=== PATIENT | male | born 1970 | race Caucasian/White ===

== ENCOUNTER 2024-06-01 22:56 | Inpatient (IN) ==
--- NOTE | 2024-06-01 23:32 | Emergency Department Note ---
Impression & Plan Depression, Anxiety, Alcohol intoxication, Alcohol abuse ED Provider Note ED Provider Note NAME: GASTON MENDEZ AGE:53 SEX: Male : 1970 ARRIVES VIA: Private vehicle INFORMANT: Patient ED PROVIDER(s): Criss Rivera DO CHIEF COMPLAINT: Mental health evaluation HPI: This is a 53-year-old male who arrives to Emergency Department with family due to concern for mental health evaluation. Patient admits to history of anxiety, depression, and PTSD. He admits to history of alcohol abuse and states he did drink a sixpack today. Patient states he does drink daily. He states he has tried to go to rehab twice, but still goes back to alcohol use. He states he does use marijuana occasionally, denies any other recreational drugs. He denies any other concern for any recent injury or illness. He denies any recent change in his medications. He states he is a diabetic but does not check his blood sugar. He denies SI/HI. PAST MEDICAL HISTORY:See Below PAST SURGICAL HISTORY:See Below FAMILY HISTORY:See Below SOCIAL HISTORY:See Below HOME MEDICATIONS:See Below ALLERGIES:See Below VITALS:See Below PHYSICAL EXAMINATION: GENERAL: alert, well appearing, well nourished, no distress, non-toxic, tearful EYE EXAM: normal conjunctiva, PERRL and EOM's grossly intact OROPHARYNX: no exudate, no erythema, lips, buccal mucosa, and tongue normal and mucous membranes are moist NECK: supple, no nuchal rigidity, no adenopathy, non-tender LUNGS: Clear to auscultation. Normal chest wall mechanics, no w/r/r HEART: no murmurs, S1 normal and S2 normal ABDOMEN: abdomen soft, non-tender, normo-active bowel sounds, no masses, no rebound or guarding. SKIN: no rashes, petechiae, orbruising UPPER EXTREMITIES: upper extremities are grossly normal. FROM, nml pulses b/l. LOWER EXTREMITIES: No pitting edema. FROM, nml pulses b/l. NEURO EXAM: Normal sensorium, cranial nerves II-XII grossly intact, normal speech, no facial droop,nogross weakness of arms, no gross weakness of legs. Gross sensation intact. No ataxia. Vital Signs: reviewed and remarkable Differential Diagnosis: mood disorder, suicidal ideation, anxiety, depression, substance abuse, toxidrome, infection, hypoglycemia, electrolyte abnormalities, ICH as well as others were considered. MEDICAL DECISION MAKING: This is a 53-year-old male presents emergency department with family bedside due to concern for increased anxiety, depression, PTSD symptoms. Patient admits to daily alcohol use. Labs and urine collected and sent per protocol, EKG performed and interpreted by me at bedside, patient monitored on telemetry due to concern for alcohol use and possible withdrawal. Patient noted to have significant alcohol intoxication. He was given a dose of his previously prescribed anxiety medication additionally. He rested and was medically cleared at 7 AM for case management evaluation. Patient signed out pending case management evaluation and recommendations. Patient denied SI or HI, no grounds at this time for involuntary inpatient mental health treatment. ER Treatment Provided: See below 0645: Patient signed out to Dr. Funes pending mental health evaluation. Diagnostics Interpreted By Me: -ECG: Normal sinus at 89, normal axis, normal intervals, no acute ST/T wave changes -Cardiac Monitoring: An order was placed for continuous cardiac monitoring. The monitor shows a rate of 88 with normal sinus rhythm. -Laboratory studies: As stated above and show below. Triage Nursing Note Reviewed Prior/Outside Records Reviewed Past Med/Surg History Problem List (Updated 06/02/24 @ 11:07 by Yang Reeves DO) PTSD (post-traumatic stress disorder) Alcohol withdrawal syndrome with perceptual disturbance Alcohol abuse (Acute) Alcohol intoxication (Acute) Anxiety (Acute) Depression (Acute) Encounter for pre-operative examination No significant past surgical history Chronic low back pain Chronic neck pain Medical History (Updated 06/02/24 @ 11:07 by Yang Reeves DO) Alcohol dependence, daily use 3-12 drinks daily Barretts esophagus Diabetes mellitus, type 2 NIDDM Anxiety Hypertension Depression Surgical History History of carpal tunnel surgery of right wrist History of cholecystectomy History of hernia surgery x2 in childhood History of colonoscopy History of esophagogastroduodenoscopy (EGD) History of tooth extraction partial upper denture Family History Other No family history of adverse response to anesthesia No pertinent family history in first degree relatives Social History Smoking Status: Never smoker Second Hand Exposure: No; Do You Dip or Chew Tobacco: No; Hx Alcohol Use: Yes Alcohol type: beer and hard liquor Hx Substance Use: Yes (smokes marijuana (advised on policy)) Preferred Language: [place] Communication Ability: Effective Screen Vent Binder Required: No Beliefs That Will Affect Care: None marital status: Single Current Living Situation: Alone Current Living Situation Comment: Roomate, considers moving in with Brother current occupational status: employed Feels Safe at Home: Yes Safety Concerns: Feels Safe At This Time Gender Identity: Male Assistive Devices: None Allergies Allergies Allergy/AdvReac Type Severity Reaction Status Date / Time bee venom protein (honey bee) Allergy Severe Anaphylaxis Verified 08/09/21 09:34 Home Meds Home Medications Medication Instructions Recorded Confirmed amitriptyline 10 mg tablet 10 mg PO QAM 12/01/18 06/02/24 citalopram 20 mg tablet 20 mg PO QAM 12/01/18 06/02/24 cyclobenzaprine 10 mg tablet 10 mg PO TID PRN Spasms 12/01/18 06/02/24 epinephrine 0.3 mg/0.3 mL 0.3 mg IM Q3H PRN Allergic Reaction 12/01/18 06/02/24 injection, auto-injector lisinopril 20 mg tablet 20 mg PO QAM 12/01/18 06/02/24 meloxicam 15 mg tablet 15 mg PO QAM 12/01/18 06/02/24 metformin 500 mg tablet 500 mg PO DAILYBD 12/01/18 06/02/24 omeprazole 40 mg capsule,delayed 40 mg PO QAM 12/01/18 06/02/24 release albuterol sulfate 90 mcg/actuation 90 mcg inhalation Q6 PRN Shortness 06/02/24 06/02/24 aerosol inhaler Of Breath atorvastatin 10 mg tablet 10 mg PO QAM 06/02/24 06/02/24 clonidine HCl 0.1 mg tablet 0.1 mg PO QAM 06/02/24 06/02/24 folic acid 1 mg tablet 1 mg PO QAM 06/02/24 06/02/24 Previous Rx's Medication Instructions Recorded tramadol 50 mg tablet (Ultram) 50 mg PO Q4H PRN pain #15 tabs 08/17/20 Results & Data (ED) Vital Signs Vital Signs - 24 hr 06/02/24 08:48 06/02/24 09:07 06/02/24 09:07 Temperature 36.5 C Temperature Source Oral Pulse Rate 87 Pulse Rate [Finger] 78 86 Pulse Rate from SpO2 Sensor Respiratory Rate 20 14 20 Respiratory Effort / Characteristics Non-Labored Spontaneous Respiratory Depth Normal Respiratory Pattern Regular Blood Pressure 143/95 H Blood Pressure [Right Arm] 158/88 H 143/95 H Blood Pressure Mean 108 Blood Pressure Mean [Right Arm] 111 111 Blood Pressure Position [Right Arm] Semi-fowlers Pulse Oximetry 97 97 98 Oxygen Delivery Method Room Air Room Air 06/02/24 10:00 06/02/24 10:06 06/02/24 10:06 Temperature Temperature Source Pulse Rate 75 87 Pulse Rate [Finger] Pulse Rate from SpO2 Sensor 84 Respiratory Rate 24 Respiratory Effort / Characteristics Respiratory Depth Respiratory Pattern Blood Pressure 143/93 H Blood Pressure [Right Arm] Blood Pressure Mean 112 Blood Pressure Mean [Right Arm] Blood Pressure Position [Right Arm] Pulse Oximetry 95 Oxygen Delivery Method Room Air 06/02/24 10:15 06/02/24 10:30 06/02/24 10:33 Temperature Temperature Source Pulse Rate 79 83 Pulse Rate [Finger] Pulse Rate from SpO2 Sensor 90 80 Respiratory Rate 17 22 Respiratory Effort / Characteristics Respiratory Depth Respiratory Pattern Blood Pressure 139/94 Blood Pressure [Right Arm] Blood Pressure Mean 108 Blood Pressure Mean [Right Arm] Blood Pressure Position [Right Arm] Pulse Oximetry 97 94 Oxygen Delivery Method Room Air Room Air Laboratory Data 06/01/24 23:48 06/01/24 23:48 Lab Results 06/01/24 06/02/24 Range/Units 23:48 04:15 WBC 4.59 L (4.8-10.8) K/ul RBC 4.75 (4.70-6.10) M/uL Hgb 15.0 (14.0-18.0) g/dl Hct 42.4 (42.0-52.0) % MCV 89.3 (80.0-100.0) fL MCH 31.6 (25.0-34.0) pg MCHC 35.4 (32.0-36.0) g/dL RDW Std Deviation 41.5 (36.4-46.3) fL RDW Coeff of [place] 12.8 (11.5-14.5) % Plt Count 230 (130-400) K/uL MPV 9.0 L (9.4-12.4) fL Immature Gran % (Auto) 0.2 % Neut % (Auto) 41.4 % Lymph % (Auto) 42.7 % [place] % (Auto) 12.2 % Eos % (Auto) 2.4 % Baso % (Auto) 1.1 % Neut # (Auto) 1.90 (1.40-6.50) K/uL Lymph # (Auto) 1.96 (1.20-3.40) K/uL [place] # (Auto) 0.56 (0.11-0.59) K/uL Eos # (Auto) 0.11 (0.00-0.50) K/uL Baso # (Auto) 0.05 (0.00-0.20) K/uL Immature Gran # (Auto) 0.01 (0.01-0.20) K/uL Sodium 141 (136-145) mmol/L Potassium 4.0 (3.5-5.1) mmol/L Chloride 104 (98-107) mmol/L Carbon Dioxide 25 (21-32) mmol/L Anion Gap 12 H (3-11) BUN 12 (6-23) mg/dl Creatinine 1.05 (0.6-1.4) mg/dl Est Cr Clr Drug Dosing 93.6 ml/min eGFR 84.35 BUN/Creatinine Ratio 11.4 (10-20) Glucose 193 H (70-99(Fasting)) mg/dl Calcium 9.6 (8.6-10.3) mg/dl Total Bilirubin 0.4 (0.2-1.0) mg/dl AST 51 H (13-39) U/L ALT 51 (7-52) U/L Alkaline Phosphatase 86 (34-104) U/L Total Protein 8.5 H (6.0-8.3) gm/dl Albumin 4.8 (3.4-5.0) gm/dl Globulin 3.7 (2.5-4.0) gm/dl Albumin/Globulin Ratio 1.3 (0.9-2) TSH 2.496 (0.300-4.500) uIu/ml Urine Color Yellow Urine Appearance Clear (Clear) Urine pH 5.5 (4.5-7.5) Ur Specific [place] 1.010 (1.000-1.030) Urine Protein Negative (Negative) Urine Glucose (UA) Trace H (Negative) Urine Ketones Negative (Negative) Urine Blood Trace-lysed H (Negative) Urine Nitrite Negative (Negative) Urine Bilirubin Negative (Negative) Urine Urobilinogen Negative (Negative) Ur Leukocyte Esterase Negative (Negative) Urine RBC 0-2 (0-2) /hpf Urine WBC 0-5 (0-5) /hpf Ur Epithelial Cells 3-5 H (0-2) /hpf Urine Bacteria None Seen (None Seen) Salicylates < 3.0 L (3.0-30) mg/dl Urine Opiates Screen Neg (Neg) Ur Methadone, Qual Neg (Neg) Urine Fentanyl Screen Neg (Neg) Acetaminophen < 3 L (10-30) ug/ml Urine Barbiturates Neg (Neg) Ur Phencyclidine (PCP) Neg (Neg) U Amphetamin/Meth Scrn Neg (Neg) MDMA (Ecstasy) Screen Neg (Neg) U Benzodiazepines Scrn Neg (Neg) Ur Cocaine Metabolite Neg (Neg) U Marijuana (THC) Screen Neg (Neg) Ethyl Alcohol mg/dL 317.8 H (<10.0) mg/dl Administered Medications Enoxaparin Sodium (Enoxaparin Inj 40 Mg/0.4 Ml Syr) 40 mg SQ Q24H [facility] Stop: 07/02/24 13:59 Last Admin: 06/02/24 15:43 Dose: 40 mg Documented By: CHUCHO Folic Acid (Folic Acid 1 Mg Tab) 1 mg PO QAM [facility] Stop: 07/02/24 12:59 Last Admin: 06/02/24 15:43 Dose: 1 mg Documented By: CHUCHO Gabapentin (Gabapentin 600 Mg Tab) 600 mg PO Q8H [facility] Stop: 06/03/24 23:01 Last Admin: 06/03/24 06:20 Dose: 600 mg Documented By: MARCIANO Insulin Aspart (Insulin Aspart Per Unit Charge) 0 units SC ACHS [facility] Stop: 07/02/24 12:44 Last Admin: 06/02/24 20:51 Dose: Not Given Documented By: Admin: 06/02/24 18:27 Dose: 5 units Documented By: CHUCHO Co-signed By: SANDRA Admin: 06/02/24 15:55 Dose: Not Given Documented By: CHUCHO Lorazepam (Lorazepam 1 Mg Tab) 1 mg PO UD PRN; Protocol PRN Reason: EtOH Withdrawal AWSS Score 6,7 Stop: 07/02/24 12:32 Last Admin: 06/02/24 18:31 Dose: 1 mg Documented By: Admin: 06/02/24 16:01 Dose: 1 mg Documented By: CHUCHO Thiamine HCl (Thiamine Hcl 100 Mg Tab) 100 mg PO QAM [facility] Stop: 07/02/24 12:59 Last Admin: 06/02/24 15:43 Dose: 100 mg Documented By: CHUCHO Discontinued Medications Chlordiazepoxide HCl (Chlordiazepoxide Hcl 25 Mg Cap) 25 mg PO NOW ONE Stop: 06/02/24 08:31 Last Admin: 06/02/24 08:36 Dose: 25 mg Documented By: URVASHI Gabapentin (Gabapentin 600 Mg Tab) 1,200 mg PO 1245 ONE Stop: 06/02/24 12:46 Last Admin: 06/02/24 15:44 Dose: 1,200 mg Documented By: CHUCHO Gabapentin (Gabapentin 600 Mg Tab) 600 mg PO Q6H [facility] Stop: 06/03/24 00:01 Last Admin: 06/03/24 00:51 Dose: 600 mg Documented By: Admin: 06/02/24 18:32 Dose: 600 mg Documented By: CHUCHO Hydroxyzine HCl (Hydroxyzine Hcl 25 Mg Tab) 50 mg PO NOW STA Stop: 06/01/24 23:52 Last Admin: 06/02/24 00:00 Dose: 50 mg Documented By: PATY Lorazepam (Lorazepam 1 Mg Tab) 2 mg PO NOW STA Stop: 06/02/24 05:00 Last Admin: 06/02/24 06:09 Dose: Not Given Documented By: PATY Lorazepam (Lorazepam 2 Mg/1 Ml Vial) 1 mg IV NOW STA Stop: 06/02/24 08:49 Last Admin: 06/02/24 09:08 Dose: Not Given Documented By: CLARIBEL Lorazepam (Lorazepam 1 Mg Tab) 1 mg SL NOW STA Stop: 06/02/24 09:05 Last Admin: 06/02/24 09:09 Dose: 1 mg Documented By: CLARIBEL Lorazepam (Lorazepam 2 Mg/1 Ml Vial) 1 mg IV NOW STA Stop: 06/02/24 10:27 Last Admin: 06/02/24 10:34 Dose: 1 mg Documented By: RONNIE Discharge Plan Visit Data Chief Complaint: Mental Health Evaluation Stated Complaint: DEPRESSION ED Provider: Doug Funes Discharge Problem: Depression, Anxiety, Alcohol intoxication, Alcohol abuse Patient Disposition: Admitted As Inpatient Discharge Instructions Interventions: ED Discharge Assessment Last Done: 06/02/24 12:34
[2024-06-02] MEDS: hydrOXYzine HCl 25 MG TAB PO STA
[2024-06-02 00:05] LABS: Basophils # (auto) 0.05 K/uL (0.00-0.20); Basophils % (auto) 1.1 %; Eosinophils # (auto) 0.11 K/uL (0.00-0.50); Eosinophils % (auto) 2.4 %; Hematocrit (blood only) 42.4 % (42.0-52.0); Immature Granulocytes # (auto) 0.01 K/uL (0.01-0.20); Immature Granulocytes % (auto) 0.2 %; Lymphocytes # (auto) 1.96 K/uL (1.20-3.40); Lymphocytes % (auto) 42.7 %; Mean Corpuscular Hemoglobin 31.6 pg (25.0-34.0); Mean Corpuscular Hgb Conc 35.4 g/dL (32.0-36.0); Mean Corpuscular Volume 89.3 fL (80.0-100.0); Monocytes # (auto) 0.56 K/uL (0.11-0.59); Monocytes % (auto) 12.2 %; Neutrophils % (auto) 41.4 %; Platelet Count 230 K/uL (130-400); RDW Coefficient of Variation 12.8 % (11.5-14.5); RDW Standard Deviation 41.5 fL (36.4-46.3); Red Blood Count 4.75 M/uL (4.70-6.10); White Blood Count 4.59 K/ul (4.8-10.8)
[2024-06-02 00:19] LABS: Albumin Globulin Ratio 1.3 (0.9-2); Albumin Level 4.8 gm/dl (3.4-5.0); BUN Creatinine Ratio 11.4 (10-20); Bilirubin,Total 0.4 mg/dl (0.2-1.0); Calcium 9.6 mg/dl (8.6-10.3); Creatinine Clr Calc Pharmacy 93.6 ml/min; Globulin 3.7 gm/dl (2.5-4.0); Total Protein 8.5 gm/dl (6.0-8.3)
[2024-06-02 00:33] LABS: Thyroid Stimulating Hormone 2.496 uIu/ml (0.300-4.500)
[2024-06-02 00:39] LABS: Acetaminophen < 3 ug/ml (10-30); Salicylate < 3.0 mg/dl (3.0-30)
[2024-06-02 04:34] LABS: Appearance Urine Clear (Clear); Bilirubin Urine Negative (Negative); Blood Urine Trace-lysed (Negative); Color Urine Yellow; Glucose Urine UA Trace (Negative); Ketones Urine Negative (Negative); Leukocyte Esterase Urine Negative (Negative); Nitrite Urine Negative (Negative); Protein Urine Negative (Negative); Urobilinogen Urine Negative (Negative); pH Urine 5.5 (4.5-7.5)
[2024-06-02 04:45] LABS: Bacteria Urine None Seen (None Seen); RBC Urine 0-2 /hpf (0-2); WBC Urine 0-5 /hpf (0-5)
[2024-06-02 05:00] LABS: Amphetamines+Metham, Urine Neg (Neg); Barbiturates, Urine Neg (Neg); Benzodiazepine, Urine Neg (Neg); Cocaine, Urine Neg (Neg); Fentanyl, Urine Neg (Neg); MDMA (Ecstacy), Urine Neg (Neg); Marijuana, Urine Neg (Neg); Methadone, Urine Neg (Neg); Opiate, Urine Neg (Neg); Phencyclidine, Urine Neg (Neg)
[2024-06-02] MEDS: LORazepam 1 MG TAB PO STA (06:09)
--- OUTSIDE RECORDS SUMMARY | 2024-06-02 06:22 | External Medical Summary | Summary of Care ---
Author Name Unknown Organization [facility] Address [address] [facility] [place] [address] Phone [phone] Care Team Providers Care Fit Model Name Role Phone Aixa Booth PA-C Primary Care Provider [phone] Reason for Visit * Reason Comments eRx-Medication Refill Encounter Details Date Type Department Care Team (Late st Contact Info) Description 05/03/2024 Refill [facility] [address] [place] [phone] Edgar Cardona MD [address] [facility] [place] [id number] Type 2 diabetes mellitus without complication, without long-term current use of insulin (HCC) Allergies Active Allergy Reactions Criticality Noted Date Comments Yellow Jacket Venom 07/31/2010 documented as of this encounter (statuses as of 05/03/2024) Medications OneTouch Verio In Vitro Strip (Glucose Blood)Indication s:Type 2 diabetes mellitus without complication, without long-term current use of insulin (HCC),Uncontroll ed type 2 diabetes mellitus with hyperglycemia (HCC) Check BS once daily E11.9 100 Strip 1 08/15/19 22 Active OneTouch UltraSoft LancetsIndicatio ns:Type 2 diabetes mellitus without complication, without long-term current use of insulin (HCC),Uncontroll ed type 2 diabetes mellitus with hyperglycemia (HCC) Check BS once daily E11.9 100 Each 1 08/15/19 22 Active metFORMIN HCl 500 MG Oral Tablet (Glucophage)Ghazal cations:Type 2 diabetes mellitus without complication, without long-term current use of insulin (HCC) Take 2 Tablets by mouth 2 times a day with morning and evening meals. 360 Tablet 3 03/06/19 24 Active Thiamine HCl 100 MG Oral Tablet (vitamin B-1)Indications: History of alcohol use disorder Take 1 Tablet by mouth in the morning. 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 40 Tablet 2 05/30/19 24 Active Naltrexone HCl 50 MG Oral Tablet (Revia)Indicatio ns:History of alcohol use disorder Take 1 Tablet by mouth in the morning. 90 Tablet 3 07/03/19 24 Active buPROPion HCl ER (XL) 300 MG Oral Tablet Extended Release 24 Hour (Wellbutrin XL)Indications:D epression with anxiety Take 1 Tablet by mouth in the morning. 90 Tablet 3 12/02/19 24 Active Citalopram Hydrobromide 40 MG Oral Tablet (CeleXA)Indicati ons:Depression with anxiety Take 1 Tablet by mouth in the morning. 90 Tablet 3 12/02/19 24 Active Folic Acid 1 MG Oral Tablet Take 1 Tablet by mouth in the morning. 90 Tablet 3 12/02/19 24 Active Omeprazole 40 MG Oral Capsule Delayed Release (PriLOSEC)Indica tions:Gastroesop hageal reflux disease without esophagitis Take 1 Capsule by mouth in the morning. 1 hour before the first meal of the day. 90 Capsule 3 12/02/19 24 Active Atorvastatin Calcium 10 MG Oral Tablet (Lipitor)Indicat ions:Type 2 diabetes mellitus without complication, without long-term current use of insulin (HCC) Take 1 Tablet by mouth in the morning. 90 Tablet 3 12/02/19 24 Active Baclofen 10 MG Oral Tablet (Lioresal)Indica tions:Lumbar radiculopathy Take 1 Tablet by mouth in the morning and 1 Tablet at noon and 1 Tablet before bedtime. 90 Tablet 5 12/02/19 24 Active Additional Information Patient taking differently:10 mg Oral TID(AM/NOON/HS),Takes PRN, Reported on 12/19/2023 Gabapentin 800 MG Oral Tablet (Neurontin)Indic ations:Lumbar radiculopathy,Un complicated alcohol dependence (HCC) Take 1 Tablet by mouth in the morning and 1 Tablet at noon and 1 Tablet before bedtime. 270 Tablet 3 12/02/19 24 Active Additional Information Patient taking differently:800 mg Oral TID(AM/NOON/HS),Taking PRN, Reported on 12/19/2023 Metoprolol Tartrate 25 MG Oral Tablet (Lopressor)Indic ations:HTN, goal below 130/80 Take 0.5 Tablets by mouth in the morning and 0.5 Tablets before bedtime. 90 Tablet 3 12/02/19 24 Active Famotidine 20 MG Oral Tablet (Pepcid)Indicati ons: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,Gastro esophageal reflux disease without esophagitis Take 1 Tablet by mouth at bedtime as needed for Heartburn. 90 Tablet 3 03/23/19 25 Active Albuterol Sulfate HFA 108 (90 Base) MCG/ACT Inhalation Aerosol SolutionIndicati ons:Acute bronchospasm INHALE 2 PUFFS BY MOUTH EVERY 6 HOURS NEEDED FOR SHORTNESS OF BREATH OR WHEEZING. 18 g 04/19/19 25 Active glipiZIDE 5 MG Oral Tablet (Glucotrol)Indic ations:Type 2 diabetes mellitus without complication, without long-term current use of insulin (HCC) TAKE 1 TABLET BY MOUTH EVERY DAY IN THE MORNING 90 Tablet 3 05/04/19 25 Active glipiZIDE 5 MG Oral Tablet (Glucotrol)Indic ations:Type 2 diabetes mellitus without complication, without long-term current use of insulin (HCC) Take 1 Tablet by mouth in the morning. 90 Tablet 3 03/06/19 24 2024 Discontinued documented as of this encounter (statuses as of 05/03/2024) Active Problems Problem Noted Date Diagnosed Date TYRA (acute kidney injury) 12/19/2023 Chest pain 12/19/2023 Alcohol withdrawal syndrome with complication Uncomplicated alcohol dependence 10/19/2021 Tremulousness 2019 Alcohol abuse 2019 Type 2 diabetes mellitus without complication Psychophysiological insomnia 01/07/2019 HTN, goal below 130/80 06/09/2018 Allergy to yellow jackets 04/30/2016 Overview (10/02/2017): ANAPHYLAXIS Hernandez's esophagus 03/23/2014 Lumbar radiculopathy 05/27/2013 Overview (05/27/2013): LE and UE EMG 2006- acute denervation in L4 root supplied muscles. Herniated cervical disc 05/27/2013 Overview (10/02/2017): X 3 Lumbar disc herniation 05/27/2013 Overview (10/02/2017): X 3 CTS (carpal tunnel syndrome) 05/27/2013 Overview (05/27/2013): EMG 2006 Esophageal reflux 01/04/2011 Depression with anxiety 01/04/2011 documented as of this encounter (statuses as of 05/03/2024) Resolved Problems Problem Noted Date Diagnosed Date Resolved Date Food insecurity 06/25/2022 04/01/2024 Overview: Per [facility] Protocol Uncontrolled type 2 diabetes mellitus with hyperglycemia 05/25/2022 03/06/2023 Accidental caffeine overdose 2019 08/14/2021 Moderate episode of recurren t major depressive disorder 10/08/2019 05/25/2022 Alcohol-induced mood disorder 10/08/2019 10/19/2021 Hemochromatosis 11/04/2018 01/07/2019 Prediabetes 11/25/2017 01/23/2019 Overview: Per Prediabetes protocol #1 MEDICATION USE AGREEMENT 11/30/2013 IFG (impaired fasting glucose) 07/24/2013 10/02/2017 Overview (07/24/2013): FBG 6/14 = 113 Backache 05/09/2011 10/02/2017 Toxic effect of venom 07/31/20102017 Overview (11/22/2015): ICD-10 update of inactive term documented as of this encounter (statuses as of 05/03/2024) Immunizations Name Administration Dates Next Due Pneumococcal Conjugate Vacci ne, 20-valent ([id number]) 05/28/2022 Seasonal Influenza Vac., MDV , IM, 0.5 mL (Fluzone) 11/30/2013,12/24/2012,12/25/2011(Deferr ed: Patient Refused) Seasonal Influenza, PF, 6 M & above, IM , (FluLaval or Fluzone) 12/16/2022(Deferred: Patient Refused) TDAP (age 10 and older)(Boostrix) 06/18/2022 TDAP, Age 7 and older, IM (Adacel) 12/25/2011(De ferred: Patient Refused) documented as of this encounter Social History Tobacco Use Types Packs/Day Years Used Date Smoking Tobacco: Never Smokeless Tobacco: Former Alcohol Use Standard Drinks/Week Comments Not Currently 0 (1 standard drink = 0.6 oz pure alcohol) 6-8 cans beer per day Not in a few months PHQ-2 Answer Date Recorded PHQ Adult Total Score 11 03/23/2024 Hunger Vital Sign Answer Date Recorded Within the past 12 months, y ou worried that your food would run out before you got the money to buy more. Never true 03/23/19 25 Within the past 12 months, t he food you bought just didn't last and you didn't have money to get more. Never true 03/23/2024 Childcare Answer Date Recorded Do you feel overwhelmed with taking care of a child, family member or friend? No 03/23/2024 Does your family need help f inding childcare? (Household - for ages 0-17 years) Not on file 03/23/2024 Clothing Answer Date Recorded Have you been unable to get clothing when it was really needed? No 03/23/2024 Is your family able to get c lothes or diapers when needed? (Household - for ages 0-17 years) Not on file 03/23/2024 Personal Safety Answer Date Recorded Do you feel unsafe or have concerns for your saf ety? No 03/23/2024 Do you have concerns for you r family's safety? (Household - for ages 0-17 years) Not on file 03/23/2024 Utilities Answer Date Recorded Do you have trouble paying y our heating, water, or electric bill? No 03/23/2024 Is your family able to pay t he heat, water, or electric bill? (Household - for ages 0-17 years) Not on file 03/23/2024 Does your family have access to good internet? (Household - for ages 0-17 years) Not on file 03/23/2024 Employment Status Answer Date Recorded Are you unemployed or without regular income? No 03/23/2024 Does the household have a re gular source of income? (Household - for ages 0-17 years) Not on file 03/23/2024 Social Connections Answer Date Recorded How often do you feel lonely or isolated from th ose around you? Never 03/23/2024 Financial Resource Strain Answer Date R ecorded Do you have any trouble payi ng for your medications, or do you think you might in the future? No 03/23/2024 Does your family have troubl e paying for medicine? (Household - for ages 0-17 years) Not on file 03/23/2024 Transportation Needs Answer Date Record ed Do you have trouble getting a ride to medical visits or work? (Adult - for ages 18 years and over) Not on file 03/23/2024 Does your family have a hard time getting a ride to doctors visits? (Household - for ages 0-17 years) Not on file 03/23/2024 Has lack of transportation k ept you from medical appointments, meetings, work, or from getting things needed for daily living? Check all that apply. No 03/23/2024 Do you (or your family) have trouble finding or paying for a ride (transportation)? (Household - for ages 0-17 years) Not on file 03/23/2024 Housing Stability Answer Date Recorded Do you currently live in a s helter or have no steady place to sleep at night? No 03/23/2024 Do you think you are at risk of becoming homeless? (Adult - for ages 18 years and over) Not on file 03/23/2024 Does your family worry about paying for your home or becoming homeless? (Household - for ages 0-17 years) Not on file 0 03/23/2024 Are you homeless or worried that you might be in the future? No 03/23/2024 Are you (or your family) hari eless or worried that you might be in the future? (Household - for ages 0-17 years) Not on file Food Insecurity Answer Date Recorded Do you need food for this week? No 03/23/2024 Are you able to get enough f ood for your family? (Household - for ages 0-17 years) Not on file 03/23/2024 Does your family need food t his week? (Household - for ages 0-17 years) Not on file 03/23/2024 Do you always have enough fo od for your family? (Household - for ages 0-17 years) Not on file 03/23/2024 Food Insecurity Answer Date Recorded Within the past 12 months, y ou worried that your food would run out before you got the money to buy more. Never true 03/23/19 25 Within the past 12 months, t he food you bought just didn't last and you didn't have money to get more. Never true 03/23/2024 Do you need food for this week? 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 Answer Date of Assessment Author No 12/19/2023 6:41 PM Josr Austin RN * Are you blind or do you have serious difficulty seeing, even when wearing glasses? Answer Date of Assessment Author No 12/19/2023 6:41 PM EDT Josr Beyer RN * Do you have serious difficulty walking or climbing stairs? (5 years old or older) Answer Date of Assessment Author No 12/19/2023 6:41 PM Josr Austin RN * Do you have difficulty dressing or bathing? (5 years old or older) Answer Date of Assessment Author No 12/19/2023 6:41 PM Josr Austin RN * Because of a physical, mental, or emotional condition, do you have difficulty doing errands alone such as visiting a doctor’s office or shopping? (15 years old or older) Answer Date of Assessment Author No 12/19/2023 6:41 PM EDT Josr Beyer RN documented as of this encounter Mental Status * Because of a physical, mental, or emotional condition, do you have serious difficulty concentrating, remembering, or making decisions? (5 years old or older) Answer Entry Date Author No 12/19/2023 6:41 PM EDT Josr Beyer RN documented in this encounter Miscellaneous Notes * Telephone Encounter - Brooke Williamson [facility] - 05/03/2024 11:28 AM EDTSigned Prescriptions: Disp Refills glipiZIDE 5 MG Oral Tablet (Glucotrol) 90 Tab*3 Sig: TAKE 1 TABLET BY MOUTH EVERY DAY IN THE MORNINGAuthorizing Provider: AIXA BOOTH User: BROOKE WILLIAMSON documented in this encounter Plan of Treatment Upcoming Encounters Date Type Department Care Team (Late st Contact Info) Description 06/01/2024 10:20 AM EDT Office Visit [facility] [address] [place] [phone] Edgar Cardona MD [address] [place] [phone] 09/15/2024 8:30 AM EDT Hospital Encounter ENDO GECL, Endoscopy [address] [facility] [address] [facility] [place] [phone] Manny Coker MD [address] [place] [phone] 09/15/2024 8:30 AM EDT - 09/15/2024 9:30 AM EDT Surgery ENDO GECL, Endoscopy [address] [place] [phone] Manny Coker MD [address] [place] [phone] COLONOSCOPY FLEXIBLE PROXIMAL DIAGNOSTIC Scheduled Procedures Name Priority Associated Diagnoses Date/Ti me COLONOSCOPY FLEXIBLE PROXIMA L DIAGNOSTIC 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, colon Hernandez esophagus 09/15/2024 8:30 AM EDT ESOPHAGOGASTRODUODENOSCOPY ( EGD), FLEXIBLE, TRANSORAL, DIAGNOSTIC 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, colon Hernandez esophagus 09/15/2024 8:30 AM EDT Health Maintenance Due Date Last Done Comments Hepatitis B Vaccine (1 of 3 - 19+ 3-dose series) 1988 Cologuard 2014 Fecal Occult Blood Test 2014 Sigmoidoscopy 2014 Hernandez's Esophagus Surveilance 03/23/2017 03/23/2014, 03/23/2014 Colonoscopy 11/05/2018 11/05/2013, 11/05/2013 Colorectal Cancer Screening 11/05/2018 Zoster Vaccines (1 of 2) 11/01/2019 COVID-19 Vaccine ( season) 2023 Influenza Vaccine (FLU shot) (#1) 2023 11/30/2013, 12/24/2012 Albumin/Creatinine Ratio 03/06/2024 03/06/2023 HbA1c 09/20/2024 03/23/2024, 11/20, 12/15/2022, Additional history exists Diabetic Eye Exam 12/01/2024 12/02/2023, , 10/08/2019 B-12 03/23/2025 03/23/2024, 06/18, 07/01/2020, Additional history exists Depression Monitoring 03/23/2025 03/23/2024 Diabetic Foot Exam 03/23/2025 03/23/2024, 0 03/06/2023, 08/14/2021, Additional history exists GFR 03/23/2025 03/23/2024, 11/0 02/2023, 12/19/2023, Additional history exists Lipid Panel 03/23/2029 03/23/2024, 11/20, 07/01/2020, Additional history exists DTap/Tdap Vaccines (2 - Td or Tdap) 06/18/2032 06/18/2022 RETIRED - COLONOSCOPY-EVERY 5 YRS AGES 18-100 Discontinued 11/05/2013, 11/05/2013 Pneumococcal Vaccine: 50+ Years Completed 05/28/2022 HPV (Gardasil) Vaccine Aged Out No lo nger eligible based on patient's age to complete this topic MENINGOCOCCAL (MENACTRA/MENVEO) Aged Out No longer eligible based on patient's age to complete this topic Meningitis B Vaccine (Bexsero/Trumemba) Aged Out No longer eligible based on patient's age to complete this topic documented as of this encounter Medical Devices Implanted Type Area Physical Science Aide Device Identifier Shelf Expiration Date Model / Serial / Lot Danyell Littlejohni 5 Dg, [id number] Implanted:Qty: 1 on 02/15/2022 [place] [facility] [place]: Spine Lumbar [employer] 10/25/2025 [id number] / / [id number] Screw 7x55mm Implanted:Qty: 2 on 02/15/2022 by Ba [place] [facility] [place]w N/A: Spine Lumbar [employer] [id number] / / Vivigen Mis Delivery System Pre-Filled Cannula With Cellular Bone Matrix (Processed By [email or web address], Exclusively Distributed By [employer]) Implanted:Qty: 1 on 02/15/2022 by Ba Napoles [place] [facility] [place]/A: Spine Lumbar LIF[employer]ET 01/05/2023 BL-0-001 / [id number] / [id number] Vivigen Mis Delivery System Pre-Filled Cannula With Cellular Bone Matrix (Processed By [email or web address], Exclusively Distributed By [employer] ([employer])) Implanted:Qty: 1 on 02/15/2022 by Ba Napoles [place] [facility] [place] N/A: Spine Lumbar LIFENET 01/05/2023- / [id number] / [id number] Concorde Proti 5 Dg Implanted:Qty: 1 on 02/15/2022 by Ba Napoles [place] [facility] [place] N/A: Spine Lumbar [employer] 06/03/2024 [id number] / / [id number] Screw [id number] Thr Maxtrix - [id number] Implanted:Qty: 2 on 02/15/2022 by Ba Napoles [place] [facility] [place] N/A: Spine Lumbar SYNTHES : DEPUY [id number] / / Screw Matrx 7.0x50mm - [id number] Implanted:Qty: 2 on 02/15/2022 by Ba Napoles [place] [facility] [place] N/A: Spine Lumbar JNJ : [employer] [id number] / / Cap Locking W/O Saddle Matrix - [id number] Implanted:Qty: 6 on 02/15/2022 by Ba Napoles MD [place] [facility] [place] N/A: Spine Lumbar SYNTHES : DEPUY [id number] / / Head Poly Top Load Matrix - [id number] Implanted:Qty: 6 on 02/15/2022 by Ba Napoles MD [place] [facility] [place] N/A: Spine Lumbar SYNTHES : DEPUY 632.001 / / Pre Lordosed Anastacio W Line 75mm - [id number] Implanted:Qty: 2 on 02/15/2022 by Ba Napoles MD [place] [facility] [place] N/A: Spine Lumbar JNJ : DE[employer]INE [id number] / / documented as of this encounter Visit Diagnoses Diagnosis Type 2 diabetes mellitus without complication, without long-term current use of insulin (HCC) 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, colon Hernandez esophagus Hernandez's esophagus documented in this encounter Advance Directives * Full Code (Latest Code Status on File) Date Activated Date Inactivated Comments 12/19/2023 6:02 PM 12/20/2023 5:57 PM This order reflects the patients wishes and were consensually agreed upon. Question Answer Comments Discussion of Advance Directives occurred with: Patient * Full Code Date Activated Date Inactivated Comments 12/14/2022 6:17 AM 12/16/2022 3:50 PM This order reflects the patients wishes and were consensually agreed upon. Question Answer Comments Discussion of Advance Directives occurred with: Patient * Full Code Date Activated Date Inactivated Comments 04/27/2022 6:16 PM 04/30/2022 2:46 PM This order r eflects the patients wishes and were consensually agreed upon. Question Answer Comments Discussion of Advance Directives occurred with: Patient * Full Code Date Activated Date Inactivated Comments 02/15/2022 8:51 AM 02/18/2022 4:16 PM Question Answer Comments Discussion of Advance Direct micheal occurred with: Not Discussed due to patient's condition * Full Code Date Activated Date Inactivated Comments 02/15/2022 6:12 AM 02/15/2022 8:51 AM This order reflects the patients wishes and were consensually agreed upon. Question Answer Comments Discussion of Advance Direct micheal occurred with: Not Discussed due to patient's condition Healthcare Agents on File Name Relationship Healthcare Agent Relationship Communication Douglas Russo Sr. Father Emergency Contact Care Teams Fit Model Relationship Specialty Start Date End Date Aixa Booth PA-C [address] [place] [id number] PCP - General Physician Psychiatry Instructor 12/10/23 documented as of this encounter
--- OUTSIDE RECORDS SUMMARY | 2024-06-02 06:22 | External Medical Summary | Summary of Care ---
Author Name Unknown Organization [facility] Address [address] 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 Name Role Phone Aixa Booth PA-C Primary Care Provider [phone] Reason for Visit * Reason Onset Date Comments Advice 02/28/2024 Encounter Details Date Type Department Care Team (Late st Contact Info) Description 02/28/2024 Telephone [facility] [place] [address] [facility] [place] [phone] Aixa Booth PA-C [address] [facility] [place] [address] Advice Allergies Active Allergy Reactions Criticality Noted Date Comments Yellow Jacket Venom 07/31/2010 documented as of this encounter (statuses as of 05/30/2024) Medications OneTouch Verio In Vitro Strip (Glucose Blood)Indications :Type 2 diabetes mellitus without complication, without long-term current use of insulin (HCC),Uncontrolle d type 2 diabetes mellitus with hyperglycemia (HCC) Check BS once daily E11.9 100 Strip 1 2 Active OneTouch UltraSoft LancetsIndication s:Type 2 diabetes mellitus without complication, without long-term current use of insulin (HCC),Uncontrolle d type 2 diabetes mellitus with hyperglycemia (HCC) Check BS once daily E11.9 100 Each 1 2 Active metFORMIN HCl 500 MG Oral Tablet (Glucophage)Indic ations:Type 2 diabetes mellitus without complication, without long-term current use of insulin (HCC) Take 2 Tablets by mouth 2 times a day with morning and evening meals. 360 Tablet 3 4 Active Thiamine HCl 100 MG Oral Tablet (vitamin B-1)Indications:H istory of alcohol use disorder Take 1 Tablet by mouth in the morning. 90 Tablet 3 4 Active hydrOXYzine HCl 50 MG Oral TabletIndications :OSMAN (generalized anxiety disorder),Current severe episode of major depressive 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, unspecified whether recurrent (HCC) Take 1 Tablet by mouth every 6 hours as needed for Anxiety. 40 Tablet 2 4 Active Naltrexone HCl 50 MG Oral Tablet (Revia)Indication s:History of alcohol use disorder Take 1 Tablet by mouth in the morning. 90 Tablet 3 4 Active buPROPion HCl ER (XL) 300 MG Oral Tablet Extended Release 24 Hour (Wellbutrin XL)Indications:De pression with anxiety Take 1 Tablet by mouth in the morning. 90 Tablet 3 4 Active Citalopram Hydrobromide 40 MG Oral Tablet (CeleXA)Indicatio ns:Depression with anxiety Take 1 Tablet by mouth in the morning. 90 Tablet 3 4 Active Folic Acid 1 MG Oral Tablet Take 1 Tablet by mouth in the morning. 90 Tablet 3 4 Active Omeprazole 40 MG Oral Capsule Delayed Release (PriLOSEC)Indicat ions:Gastroesopha geal reflux disease without esophagitis Take 1 Capsule by mouth in the morning. 1 hour before the first meal of the day. 90 Capsule 3 4 Active Atorvastatin Calcium 10 MG Oral Tablet (Lipitor)Indicati ons:Type 2 diabetes mellitus without complication, without long-term current use of insulin (HCC) Take 1 Tablet by mouth in the morning. 90 Tablet 3 4 Active Baclofen 10 MG Oral Tablet (Lioresal)Indicat ions:Lumbar radiculopathy Take 1 Tablet by mouth in the morning and 1 Tablet at noon and 1 Tablet before bedtime. 90 Tablet 5 4 Active Additional Information Patient taking differently:10 mg Oral TID(AM/NOON/HS),Takes PRN, Reported on 12/19/2023 Gabapentin 800 MG Oral Tablet (Neurontin)Indica tions:Lumbar radiculopathy,Unc omplicated alcohol dependence (HCC) Take 1 Tablet by mouth in the morning and 1 Tablet at noon and 1 Tablet before bedtime. 270 Tablet 3 4 Active Additional Information Patient taking differently:800 mg Oral TID(AM/NOON/HS),Taking PRN, Reported on 12/19/2023 Metoprolol Tartrate 25 MG Oral Tablet (Lopressor)Indica tions:HTN, goal below 130/80 Take 0.5 Tablets by mouth in the morning and 0.5 Tablets before bedtime. 90 Tablet 3 4 Active documented as of this encounter (statuses as of 05/30/2024) Active Problems Problem Noted Date Diagnosed Date [...] as of this encounter (statuses as of 05/30/2024) Resolved Problems Problem Noted Date Diagnosed Date [...] as of this encounter (statuses as of 05/30/2024) Immunizations Name Administration Dates Next Due Pneumococcal Conjugate Vacci ne, 20-valent ([id number]) 05/28/2022 Seasonal Influenza Vac., MDV , IM, [...] 03/23/2024 Does the household have a re lar source of income? (Household - for ages [...] 6:41 PM EDT Josr Beyer RN * Are you blind or do you have serious difficulty seeing, even when wearing glasses? Answer Date of Assessment Author No 12/19/2023 6:41 PM EDT Josr Beyer RN * Do you have serious difficulty walking or climbing stairs? (5 years old or older) Answer Date of Assessment Author No 12/19/2023 6:41 PM EDT Josr Beyer RN * Do you have difficulty dressing or bathing? (5 years old or older) Answer Date of Assessment Author No 12/19/2023 6:41 PM EDT Josr Beyer RN * Because of a physical, mental, [...] encounter Miscellaneous Notes * Telephone Encounter - Sharon Smith MED ASSIST - 02/28/2024 3:40 PM EST When and where was he in the ER? * Telephone Encounter - Yulia Meadows OSA - 02/28/2024 12:06 PM EST Pt stated that he went to the ER and they changed his medication but he does not know which meds were changed. Pls call pt back. documented in this encounter Plan of Treatment Upcoming Encounters Date Type Department Care Team (Late st Contact Info) Description 06/01/2024 10:20 AM EDT Office Visit [facility] [address] [facility] [place] [phone] Edgar Cardona MD [address] [facility] [place] [address] 09/15/2024 8:30 AM EDT Hospital Encounter [facility] [address] [phone] Manny Coker MD [address] [place] [address] 09/15/2024 8:30 AM EDT - 09/15/2024 9:30 AM EDT Surgery [facility] Endoscopy [address] [phone] Manny Coker MD [address] [place] [address] COLONOSCOPY FLEXIBLE PROXIMAL DIAGNOSTIC Scheduled Procedures Name [...] Vaccines (1 of 2) 11/01/2019 COVID-19 Vaccine (1 - season) 2023 Albumin/Creatinine Ratio 03/06/2024 03/06/2023 HbA1c 09/20/2024 03/23/2024, 11/20, 12/15/2022, Additional history exists Influenza Vaccine (FLU shot) (Season Ended) 2024 11/30/2013, 12/24/2012 Diabetic Eye Exam 12/01/2024 12/02/2023, , 10/08/2019 [...] this encounter Medical Devices Implanted Type Area Auto Refinisher Device Identifier Shelf Expiration Date Model / Serial / Lot Danyell Littlejohni 5 Dg, [id number] Implanted:Qty: 1 on 02/15/2022 [place] [facility] [place]A: Spine Lumbar [employer] 10/25/2025 [id number] / / [id number] Screw 7x55mm Implanted:Qty: 2 on 02/15/2022 by Ba Napoles [place] [facility] [place]w N/A: Spine Lumbar [employer] 5 / / Vivigen Mis Delivery System Pre-Filled Cannula With Cellular Bone Matrix (Processed By [employer], Exclusively Distributed By [employer]) Implanted:Qty: 1 on 02/15/2022 by Ba Napoles [place] [facility] [place]/A: Spine Lumbar [employer] 01/05/2023 - / [id number] / [id number] Vivigen Mis Delivery System Pre-Filled Cannula With Cellular Bone Matrix (Processed By [employer], Exclusively Distributed By [employer]) Implanted:Qty: 1 on 02/15/2022 by Ba Napoles [place] [facility] [place]/A: Spine Lumbar [facility] 01/05/2023 - / [id number] / [id number] Concorde [employer] 5 Dg Implanted:Qty: 1 on 02/15/2022 by Ba Napoles [place] [facility] [place]/A: Spine Lumbar [employer] 06/03/2024 [id number] / / [id number] Screw 7.5xee57ht Thr Maxtrix - [id number] Implanted:Qty: 2 on 02/15/2022 by Ba Napoles MD [place] [facility] [place]/A: Spine Lumbar SYNTHES : DEPUY / / Screw Matrx 7.0x50mm - [id number] Implanted:Qty: 2 on 02/15/2022 by Ba Napoles [place] [facility] [place]A: Spine Lumbar JNJ : [employer] / / Cap Locking W/O Saddle Matrix - [id number] Implanted:Qty: 6 on 02/15/2022 by Ba Napoles MD [place] [facility] [place]A: Spine Lumbar SYNTHES : DEPUY 632.099 / / Head Poly Top Load Matrix - [id number] Implanted:Qty: 6 on 02/15/2022 by Ba Napoles MD [place] [facility] [place]A: Spine Lumbar SYNTHES : DEPUY 632.001 / / Pre Lordosed Anasatcio W Line 75mm - [id number] Implanted:Qty: 2 on 02/15/2022 by Ba Napoles MD [place] [facility] [place]A: Spine Lumbar JNJ : [employer] [id number] / / documented as of this encounter Advance Directives * Full Code [...] Russo Sr. 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
--- OUTSIDE RECORDS SUMMARY | 2024-06-02 06:23 | External Medical Summary | Summary of Care ---
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 [facility] What is the reason for the patient to be seen? Heartburn * Evaluate & Treat - Unlimited Visits (Within 10 days (routine)) - Pending Review Specialty Diagnoses / Procedures Referred By Anika redman Referred To Contact Pharmacist / Pharmacy Diagnoses Lumbar radiculopathy Herniated cervical disc Cervical radiculopathy Chronic pain syndrome Aixa Booth PA-C [address] [address] Phone: tel: fax: Referral ID Status Reason Start Date Expiration Date Visits Requested Visits Authorized [id number] Pending Review Specialty Services Required 03/23/2024 09/19/2024 99 [phone] Question Answer Referral Priority Within 10 days (routine) Where should this appointment be scheduled? [facility] Referring Provider Role: Primary Care Reason for Referral: Pain Pain Diagnosis: Back pain, Neuropathy Pain Treatment Options: Non-opioids only Pain Treatment Goal: Med Optimization Comments Pharmacist Medication Therapy Management: Minimum frequency patient should be seen in person for medication management: as appropriate per clinical condition and patient status By my signature, I understand that my patient Fernandez Russo will have his medication therapy managed by the [facility] ([facility]) per established policies, procedures, and protocols. I also certify that this referral may serve as an initiation of service for the management of drug therapy in the above noted patient. [facility] providers will be responsible for scheduling patient visits, obtaining appropriate laboratory studies, and adjusting medication management therapy per patient's need, in addition to those roles spelled out in the clinic policy, procedures, and drug management protocols. I understand that the service provided by the [facility] is voluntary and have informed patient that they can refuse the service at their discretion. I am aware that the [facility] will provide me with a copy of the patient encounter via my [employer]. I authorize the [facility] to carry out these activities on my behalf. I consider this program to be a necessary part of the patient's medical care. Aixa Booth PA-C * Evaluate & Treat - Unlimited Visits (Within 10 days (routine)) - Pending Review Specialty Diagnoses / Procedures Referred By Anika redman Referred To Contact Physical Therapy / Physical Medicine And Rehab Diagnoses Lumbar radiculopathy Herniated cervical disc Cervical radiculopathy Chronic pain syndrome Aixa Booth PA-C [address] [address] Phone: tel: fax: Referral ID Status Reason Start Date Expiration Date Visits Requested Visits Authorized [id number] Pending Review Specialty Services Required 03/23/[phone] Question Answer Referral Priority Within 10 days (routine) Where should this appointment be scheduled? [facility] * Evaluate & Treat - Unlimited Visits (Within 30 days (routine)) - Pending Review Specialty Diagnoses / Procedures Referred By Anika redman Referred To Contact General Surgery Diagnoses 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, colon Aixa Booth PA-C [address] [address] Phone: tel: fax: Referral ID Status Reason Start Date Expiration Date Visits Requested Visits Authorized [id number] Pending Review Ancillary Services Required 03/23/2024 1 1 Question Answer Referral Priority Within 30 days (routine) Where should this appointment be scheduled? [facility] What is the reason to be seen? Screening Colonoscopy Is there suspicion that patient has Colon / Rectal Cancer? No Comments {ALERT: Do not order for pediatric patients (18 years or younger). Cancel off screen and order PEDS GASTROENTEROLOGY CONSULT (Type: 1 visit only-Evaluate and Treat. Colonoscopy ASGE Guidelines: Average risk screening (begin at age 50, 10 year intervals) ADDITIONAL INFORMATION 1. Is the patient on coumadin? No 2. Does the patient have an artificial heart valve or a history of SBE or need antibiotic prophylaxis? No Reason for Visit * Reason Comments Follow Up Discuss depression m edication-pt feels like it is not workingPt was hospitalized in November for L arm heavinessIs still having ongoing neuropathy pain in both hands and feet-will schedule colonoscopy Encounter Details Date Type Department Care Team (Late st Contact Info) Description 03/23/2024 8:40 AM EST Office Visit [facility] Marcia Quinteros [address] [phone] Aixa Booth PA-C [address] [address] Type 2 diabetes mellitus without complication, without long-term current use of insulin (HCC)*; 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, colon; HTN, goal below 130/80; Depression with anxiety; Lumbar radiculopathy; Herniated cervical disc; Cervical radiculopathy; Chronic pain syndrome; 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; Gastroesophageal reflux disease without esophagitis; Acute bronchospasm Allergies Active Allergy Reactions Criticality Noted Date Comments [place] Venom 07/31/2010 documented as of this encounter (statuses as of 03/24/2024) Medications OneTouch Verio In Vitro Strip (Glucose Blood)Indications :Type 2 diabetes mellitus without complication, without long-term current use of insulin (HCC),Uncontrolle d type 2 diabetes mellitus with hyperglycemia (HCC) Check BS once daily E11.9 100 Strip 1 08/15/19 22 Active OneTouch UltraSoft LancetsIndication s:Type 2 diabetes mellitus without complication, without long-term current use of insulin (HCC),Uncontrolle d type 2 diabetes mellitus with hyperglycemia (HCC) Check BS once daily E11.9 100 Each 1 08/15/19 22 Active glipiZIDE 5 MG Oral Tablet (Glucotrol)Indica tions:Type 2 diabetes mellitus without complication, without long-term current use of insulin (HCC) Take 1 Tablet by mouth in the morning. 90 Tablet 3 03/06/19 24 Active metFORMIN HCl 500 MG Oral Tablet [...] 24 Active hydrOXYzine HCl 50 MG Oral TabletIndications [...] 24 Active Baclofen 10 MG Oral Tablet (Lioresal)Indicat ions:Lumbar radiculopathy Take 1 Tablet by mouth in the morning and 1 Tablet at noon and 1 Tablet before bedtime. 90 Tablet 5 12/02/19 Active Additional Information Patient taking differently:10 mg Oral TID(AM/NOON/HS),Takes PRN, Reported on 12/19/2023 Gabapentin 800 MG Oral Tablet (Neurontin)Indica tions:Lumbar radiculopathy,Unc omplicated alcohol dependence (HCC) Take 1 Tablet by mouth in the morning and 1 Tablet at noon and 1 Tablet before bedtime. 270 Tablet 3 12/02/19 Active Additional Information Patient taking differently:800 mg Oral TID(AM/NOON/HS),Taking PRN, Reported on 12/19/2023 Metoprolol Tartrate 25 MG Oral Tablet (Lopressor)Indica tions:HTN, goal below 130/80 Take 0.5 Tablets by mouth in the morning and 0.5 Tablets before bedtime. 90 Tablet 3 12/02/19 24 Active Albuterol Sulfate HFA 108 (90 Base) MCG/ACT Inhalation Aerosol SolutionIndicatio ns:Acute bronchospasm Inhale 2 Puffs by mouth every 6 hours as needed for Shortness of Breath or Wheezing. 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 90 Tablet 3 03/23/19 25 Active Albuterol Sulfate HFA 108 (90 Base) MCG/ACT Inhalation Aerosol Solution Inhale 2 Puffs by mouth every 6 hours as needed for Shortness of Breath or Wheezing. 18 g 4 1:18 PM EDT 12/20/19 24 025 Discontin ued(Refil l) documented as of this encounter (statuses as of 03/24/2024) Active Problems Problem Noted Date Diagnosed Date TYRA (acute kidney injury) 12/19/2023 Chest pain 12/19/2023 Food insecurity 06/25/2022 Overview: Per [facility] Protocol Alcohol withdrawal syndrome with complication Uncomplicated alcohol [...] as of this encounter (statuses as of 03/24/2024) Resolved Problems Problem Noted Date Diagnosed Date Resolved Date Uncontrolled type 2 diabetes mellitus with hyperglycemia [...] as of this encounter (statuses as of 03/24/2024) Immunizations Name Administration Dates Next Due Pneumococcal Conjugate Vacci ne, 20-valent ([id number]) 05/28/2022 Seasonal Influenza Vac., MDV , IM, [...] Date Smoking Tobacco: Never Smokeless Tobacco: Former Tobacco Cessation:Counseling Given: No Alcohol Use Standard Drinks/Week Comments Not Currently [...] ages 0-17 years) Not on file 03/23/2024 Sex and Gender Information Value Date Recorded Sex Assigned at Male 06/09/2018 8:43 AM EDT Legal Sex Male 5:53 AM EST Gender Identity Male 06/09/2018 8:43 AM EDT Sexual Orientation Straight 06/09/2018 8: 43 AM EDT 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 Not on file Not on file Not on file documented as of this encounter Last Filed Vital Signs Vital Sign Reading Time Taken Comments Blood Pressure 143/88 03/23/2024 8:42 AM EST Pulse 54 03/23/2024 8:42 AM EST Temperature 35.9 °C (96.7 °F) 03/23/2024 8:42 AM ES T Respiratory Rate 18 03/23/2024 8:42 AM EST Oxygen Saturation 98% 03/23/2024 8:42 AM EST Inhaled Oxygen Concentration - - Weight 99.3 kg (218 lb 14.4 oz) 03/23/2024 8:42 AM EST Height - - Body Mass Index 32.33 12/19/2023 6:36 PM EDT documented in this encounter Functional Status * Are you [...] of Assessment Author No 12/19/2023 6:41 PM [place] Josr Beyer RN documented as of this encounter Mental Status * Because of a physical, mental, or emotional condition, do you have serious difficulty concentrating, remembering, or making decisions? (5 years old or older) Answer Entry Date Author No 12/19/2023 6:41 PM EDT Josr Beyer RN documented in this encounter Patient Instructions * Patient Instructions* Celia Kohli LPN - 03/23/2024 8:47 AM EST Images from the original note were not included. Diabetes: Keeping Feet Healthy Inspect your feet every day for signs of a problem. Diabetes can damage nerves in your feet and cause neuropathy. This condition makes it hard for you to feel injuries or sore spots. Diabetes can also change blood flow, making it harder for small problems, like a blister, to heal properly. In fact, minor injuries can quickly become serious infections that send you to the hospital. Practice self-care to protect your feet and keep them healthy. Take Special Care Inspect your feet daily for problems such as redness, blisters, cracks, dry skin, or numbness. Use a mirror to see the bottoms of your feet. Or, ask for help. Manage your diabetes. Monitor and control your blood sugar. Take all your medications as prescribed. Avoid walking barefoot, even indoors. Wash your feet with warm water and mild soap. Dry well, especially between toes. Don’t treat corns or calluses yourself. Talk to your doctor or barrow worker (a doctor who specializes in foot care) if you need assistance trimming your toenails. Use moisturizing cream or lotion if you have dry skin, but don’t use it between toes. Don’t use heating pads on your feet. If you have neuropathy, you could get a burn and not feel it. Stop smoking. Smoking restricts blood flow and can make it harder for wounds to heal. Have Regular Checkups Foot problems can develop quickly. So be sure to follow your healthcare team’s schedule for regular checkups. During office visits, take off your shoes and socks as soon as you get in the exam room. Ask your healthcare provider to examine your feet for problems. This will make it easier to find and treat small skin irritations before they get worse. Regular checkups can also help keep track of the blood flow and feeling in your feet. If you have neuropathy, you may need to have checkups more often. Wear Proper Footwear Wearing proper footwear is very important. If areas of your feet have been damaged by too much pressure, your healthcare provider may recommend changing your footwear. In some cases, avoiding high heels or tight work boots may be all that’s needed. Or, your healthcare provider may recommend special shoes or custom inserts. These help protect your feet and keep existing irritations from getting worse. If you need special footwear, ask your healthcare provider if you qualify for Medicare’s diabetic shoe program. Make Sure Shoes and Socks Fit Any pair of shoes--new or old--should feel comfortable as soon as you put them on. There shouldn’t be any rubbing when you walk. Wear the right shoe for any activity. For instance, a running shoe is designed to keep your feet injury-free while jogging. Buy shoes at the end of the day, when your feet are larger. Make sure they provide support without feeling too loose. Make sure your socks fit, t oo. Wear soft, seamless, well-padded socks for activity. Cotton or microfiber socks are best to help to absorb sweat. To protect your feet, avoid shoes that are open-toed or open-heeled. If you have questions about what kinds of shoes and socks are best, talk to your healthcare team. Get Regular Exercise Regular exercise improves blood flow in your feet. It also increases foot strength and flexibility.Gentle exercises, like walking or riding a stationary bicycle, are best. You can also do special foot exercises. Just be sure to talk with your healthcare provider before starting any exercise program. Also mention if any exercise causes pain, redness, or other signs of foot problems. Note: If you have any kind of break in the skin of your foot or ankle, keep the area clean. Then call your doctor--especially if the area doesn’t appear to be healing. © 6006-1455 [employer], [address] [place] [address], [place] [address]. All rights reserved. This information is not intended as a substitute for professional medical care. Always follow your healthcare professional's instructions. Colorectal Cancer Screening Colorectal cancer (cancer in the colon or rectum) is a leading cause of cancer deaths in the [place] But it doesn’t have to be. When this cancer is found and removed early, the chances of a full recovery are very good. Because colorectal cancer rarely causes symptoms in its early stages, screening for the disease is important. It’s even more crucial if you have risk factors for the disease. Learn more about colorectal cancer and its risk factors. Then talk to your healthcare provider about being screened. You could be saving your own life. Risk factors for colorectal cancer Your risk of having colorectal cancer increases if you: Are 50 years of age or older Have a family history or personal history of colorectal cancer or polyps Have a personal history of type 2 diabetes, Crohn’s disease, or ulcerative colitis Have an inherited genetic syndrome like Dalton syndrome (also known as HNPCC) or familial adenomatous polyposis (FAP) Are very overweight Are not physically active Smoke Drink a lot of alcohol Eat a lot of red or processed meat The colon and rectum Waste from food you eat enters the colon from the small intestine. As it travels through the colon,the waste (stool) loses water and becomes more solid. Intestinal muscles push it toward the sigmoid--the last section of the colon. Stool then moves into the rectum, where it’s stored until it’s ready to leave the body during a bowel movement. How cancer develops Polyps are growths that form on the inner lining of the colon or rectum. Most are benign, which means they aren’t cancerous. But over time, some polyps can become cancer (malignant). This happens when cells in these polyps begin growing abnormally. In time, malignant cells invade more and more ofthe colon and rectum. The cancer may also spread to nearby organs or lymph nodes or to other parts of the body. Finding and removing polyps can help prevent cancer from ever forming. Your screening Screening means looking for a health problem before you have symptoms. During screening for colorectal cancer, your healthcare provider will ask about your health history, examine you, and do one or more tests. History and exam The history and exam involve the following: Health history. Your healthcare provider will ask about your health history. Mention if a family member has had colon cancer or polyps. Also mention any health problems you have had in the past. Digital rectal exam (GERTRUDE). During a GERTRUDE, the healthcare provider inserts a lubricated gloved fingerinto the rectum. The test is painless and takes less than a minute. Healthcare providers agree thatthis test alone is not enough to screen for colorectal cancer. Screening test choices: Fecal occult blood test (FOBT) or fecal immunochemical test (FIT) These tests check for occult blood in stool (blood you can’t see). Hidden blood may be a sign of colon polyps or cancer. A small sample of stool is tested for blood in a laboratory. Most often, youcollect this sample at home using a kit your healthcare provider gives you. Follow the instructionscarefully for using this kit. You might need to avoid certain foods and medicines before the test, as directed. Barium enema with contrast (double-contrast barium enema) This test uses X-rays to provide images of the entire colon and rectum. The day before this test, you will need to do a bowel prep to clean out the colon and rectum. A bowel prep is a liquid diet plus strong laxatives or enemas. You will be awake for the test, but you may be given medicine to help you relax. At the start of the test, a radiologist (a healthcare provider who specializes in imagingtests) places a soft tube into the rectum. The tube is used to fill the colon with a contrast liquid (barium) and air. This can be uncomfortable for some people. The liquid helps the colon show up clearly on the X-rays. Because the test uses X-rays, it exposes you to a small amount of radiation. Virtual colonoscopy This exam is also called a CT colonography. It uses a series of X-ray photographs to create a 3-D view of the colon and rectum. The day before the test, you will need to do a bowel prep to clean out your colon. Your healthcare provider will give you instructions on how to do this. During the procedure, you will lie on a table that is part of a special X-ray machine called a CT scanner. A small tube will be placed into your rectum to fill the colon and rectum with air. This can be uncomfortable for some people. Then, the table will move into the machine and pictures will be taken of your colonand rectum. A computer will combine these photos to create a 3-D picture. Because the test uses X-rays, it exposes you to a small amount of radiation. Cologuard Cologuard is an easy to use, noninvasive colon cancer screening test that you can use in the privacy of your own home. It identifies altered DNA and/or blood in stool, which are associated with the possibility of colon cancer or precancer. DNA is continuously shed from cells in the intestinal lining, where it is passed into the stool. Ifcancer or precancer is present, abnormal cells will shed into the colon and stool along with normalcells. A molecular biology process is used to capture specific pieces of DNA for further analysis. Scope exams Here are two types of scope exams: Colonoscopy. This test can be used to find and remove polyps anywhere in the colon or rectum. The day before the test, you will do a bowel prep. This is a liquid diet plus a strong laxative solution or an enema. The bowel prep will cleanse your colon. You will be given instructions for this. Just before the test, you are given a medicine to make you sleepy. Then, a long, flexible, lighted tube called a colonoscope is gently inserted into the rectum and guided through the entire colon. Images ofthe colon are viewed on a video screen. Any polyps that are found are removed and sent to a lab fortesting. If a polyp can’t be removed, a sample of tissue is taken and the polyp might be removed l ater during surgery. You will need to bring someone with you to drive you home after this test. Sigmoidoscopy. This test is similar to colonoscopy, but focuses only on the sigmoid colon and rectum. As with colonoscopy, bowel prep must be done the day before this test. It might not need to be ascomplete as the bowel prep for a colonoscopy. You are awake during the procedure, but you may be given medicine to help you relax. During the test, the healthcare provider guides a thin, flexible, lighted tube called a sigmoidoscope through your rectum and lower colon. The images are displayed on avideo screen. Polyps are removed, if possible, and sent to a lab for testing. Colonoscopy is the only screening test that lets your healthcare provider see the entire colon and rectum. This test also lets your healthcare provider remove any pieces of tissue that need to be looked at by a lab. If something suspicious is found using any other tests, you will likely need a colonoscopy. When to call your healthcare provider after a test Call your healthcare provider if you have any of the following after any screening test: Bleeding Fever of 100.4°F (38°C) or higher, or as directed by your healthcare provider Abdominal pain Vomiting Date Last Reviewed: 12/22/201419990573-9019 [employer]. [address] [place] [address]. All rights reserved. This information is not intended as a substitute for professional medical care. Always follow your healthcare professional's instructions. documented in this encounter Progress Notes * Aixa Booth PA-C - 03/23/2024 9:11 PM EST Images from the original note were not included. Subjective Fernandez Russo is a 53 year old male that presents for Follow Up (Discuss depression medication-pt feels like it is not working/Pt was hospitalized in November for L arm heaviness/Is still having ongoing neuropathy pain in both hands and feet//-will schedule colonoscopy ) History of Present Illness Fernandez Russo is a 53 year old male with depression and anxiety who presents with concerns about the effectiveness of his medications. He is taking Wellbutrin (bupropion) 300 mg once daily and citalopram 40 mg daily for depression, and hydroxyzine as needed for anxiety. Additionally, he takes gabapentin 800 mg three times a day for chronic pain, which may also help with anxiety. He is unsure if these medications are working as intended. He experiences neuropathy in his limbs, with persistent tingling and numbness in his arms and handsdespite undergoing back surgery about a year and a half ago. He has two herniated discs in his neckbut has not had any procedures there. His legs and fingers often feel 'like they're sleeping', and he has difficulty sleeping due to his legs feeling heavy. Previous physical therapy and injections have not resolved his symptoms. In November, he visited the ER due to concerns about a possible blood clot in his left arm, which felt numb and heavy. At that time, his blood pressure was elevated, and he experienced chest pain. A CT scan and stress echo were performed, both yielding normal results. He has a history of diabetes, managed with metformin and glipizide, with his last A1c in November being 6.1%. He checks his blood sugar occasionally when feeling lightheaded or dizzy. He has high blood pressure, for which he takes metoprolol. His blood pressure today was 143/88 mmHg, slightly elevated. He experiences heartburn managed with omeprazole 40 mg, sometimes requiring an additional dose whensymptoms are severe. He has a history of Hernandez's esophagus and is due for an EGD. He has significantly reduced his alcohol intake, no longer drinking daily, and only occasionally having a few sips. Objective Vitals: 03/23/24 0842 Temp: 96.7 °F (35.9 °C) Pulse: 54 Resp: 18 SpO2: 98% BP: 143/88 BP Readings from Last 3 Encounters: 03/23/24 143/88 12/20/23 127/72 12/02/23 118/70 Wt Readings from Last 3 Encounters: 03/23/24 218 lb 14.4 oz (99.3 kg) 12/20/23 207 lb 12.8 oz (94.3 kg) 12/02/23 218 lb 3.2 oz (99 kg) BMI Readings from Last 3 Encounters: 03/23/24 32.33 kg/m² 12/20/23 30.69 kg/m² 12/02/23 32.22 kg/m² Physical Exam Physical Exam Vitals and nursing note reviewed. Constitutional: General: He is not in acute distress. Appearance: Normal appearance. He is not ill-appearing, toxic-appearing or diaphoretic. Cardiovascular: Rate and Rhythm: Normal rate and regular rhythm. Heart sounds: Normal heart sounds. Pulmonary: Effort: Pulmonary effort is normal. Breath sounds: Normal breath sounds. Musculoskeletal: Cervical back: Normal range of motion. Right lower leg: No edema. Left lower leg: No edema. Neurological: Mental Status: He is alert and oriented to person, place, and time. Psychiatric: Mood and Affect: Mood normal. I have reviewed the following results: Results LABS Kidney Function: GFR 56 (03/17/2024) A1c: 6.1% (11/2023) RADIOLOGY Chest CT: Normal, no coronary artery calcifications (03/17/2024) Neck CT: Degenerative changes, moderate degree of stenosis, narrowing at C3-C4 bilaterally, C4-C5 on the left, and C6 (2021) DIAGNOSTIC Stress Echocardiogram: Normal, ejection fraction 60-64%, no ischemia, no arrhythmias, normal heart rate and blood pressure response, normal heart valves (03/17/2024) BMP results Recent Labs Units 03/23/24 0946 12/20/23 0534 12/19/23 1225 SODIUM - [facility] mmol/L 139 141 136 POTASSIUM - [facility] mmol/L 4.3 4.7 4.3 CHLORIDE - [facility] mmol/L 102 107 100 CO2 - [facility] mmol/L 26 24 19* CREATININE - [facility] mg/dL 1.2 1.4* 1.5* BUN - [facility] mg/dL 15 13 16 Lipid panel results Recent Labs Units 03/23/24 0946 12/19/23 1743 CHOLESTEROL - [facility] mg/dL 200* 122 HDL CHOLESTEROL - [facility] mg/dL 127 74 TRIGLYCERIDES - [facility] mg/dL 47 51 CBC results Recent Labs Units 03/23/24 0946 12/20/23 0534 12/19/23 1225 WBC K/uL 3.81* 3.51* 5.13 HGB g/dL 13.8* 11.8* 13.9* HCT % 41.5 34.9* 41.5 PLT K/uL 232 183 255 HbA1c results Recent Labs Units 03/23/24 0946 12/19/23 1225 12/15/22 0634 HEMOGLOBIN A1C - [facility] % 6.7* 6.1* 6.9* TSH results Recent Labs Units 03/23/24 0946 07/03/23 1337 TSH - [facility] uIU/mL 1.14 1.30 Vitamin D results No results for input(s): "25OHVITAMIND" in the last 24662 hours. Hepatic panel results Recent Labs Units 03/23/24 0946 12/19/23 1225 07/03/23 1337 PROTEIN - [facility] g/dL 7.0 7.9 7.6 BILIRUBIN, TOTAL - [facility] mg/dL 0.5 0.5 0.3 ALKALINE PHOSPHATASE - [facility] U/L 81 85 84 AST - [facility] U/L 34 32 44 ALT - [facility] U/L 32 22 41 Assessment and Plan Assessment & Plan Depression and Anxiety Current medications (Wellbutrin 300 mg daily, citalopram 40 mg daily, hydroxyzine as needed) may not be effective. Gabapentin 800 mg TID for chronic pain, which can help with anxiety. No significant life changes or increased stress. Discussed potential switch from gabapentin to Lyrica for better oswaldo ropathy and anxiety management. Chronic Pain and Neuropathy Chronic pain and neuropathy post-lumbar spine fusion (Jan 2022). Symptoms include tingling, numbness, and sleep disruption. No significant improvement with gabapentin. Left arm worse than right; ER visit for suspected blood clot ruled out. CT neck (2021) showed degenerative changes and narrowing. Discussed conservative measures before surgical intervention. Physical therapy ordered and MRI if symptoms persist. Discussed potential switch from gabapentin to Lyrica for better neuropathy and anxiety management. - Refer to physical therapy for six weeks - Consider MRI of the neck if physical therapy is ineffective - Refer to [facility] pharmacist for potential switch from gabapentin to Lyrica Diabetes Mellitus On metformin and glipizide. Last A1c (Nov) was 6.1%, within target range. Occasional blood sugar checks. - Order blood work to check current A1c and other relevant labs Hypertension Blood pressure today 143/88 mmHg, slightly elevated. On metoprolol for management. - Continue current antihypertensive regimen. If BP still elevated at follow up in May, the would consider adding ACEi or ARB. Gastroesophageal Reflux Disease (GERD) On omeprazole 40 mg daily but requires additional doses 2-3 times a week for breakthrough symptoms.Discussed adding famotidine for faster relief. - Add famotidine as needed for breakthrough symptoms - Continue omeprazole 40 mg daily Hernandez's Esophagus Due for EGD. Discussed potential combination with colonoscopy for convenience. - Schedule EGD, potentially combined with colonoscopy Asthma Occasional need for albuterol inhaler. No smoking history. - Refill albuterol inhaler General Health Maintenance Overdue for colonoscopy, last done in 2013. No interest in immunizations today. - Schedule colonoscopy - No immunizations today Follow-up - Keep appointment with Dr. Cardona in May. Type 2 diabetes mellitus without complication (HCC) (Primary) - DIABETES FOOT EXAM 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, colon - COLONOSCOPY, SURGERY REFERRAL OP HTN, goal below 130/80 Depression with anxiety Lumbar radiculopathy - PHYSICAL THERAPY REFERRAL OP - PHARMACIST MEDS THERAPY MGMT REFERRAL OP Herniated cervical disc - PHYSICAL THERAPY REFERRAL OP - PHARMACIST MEDS THERAPY MGMT REFERRAL OP Cervical radiculopathy - PHYSICAL THERAPY REFERRAL OP - PHARMACIST MEDS THERAPY MGMT REFERRAL OP Chronic pain syndrome - PHYSICAL THERAPY REFERRAL OP - PHARMACIST MEDS THERAPY MGMT REFERRAL OP 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 - UPPER ENDOSCOPY SURGERY REFERRAL OP Gastroesophageal reflux disease without esophagitis - Famotidine 20 MG Oral Tablet (Pepcid); Take 1 Tablet by mouth at bedtime as needed for Heartburn. - UPPER ENDOSCOPY SURGERY REFERRAL OP Acute bronchospasm - Albuterol Sulfate HFA 108 (90 Base) MCG/ACT Inhalation Aerosol Solution; Inhale 2 Puffs by mouth every 6 hours as needed for Shortness of Breath or Wheezing. Wrap-Up Follow Up: Return for As scheduled. | For: As scheduled | Check-out note: Labs today Referral to [facility] ([facility]) Refer PT Colonoscopy EGD Time: I spent a total of 20-29 minutes (exact time 28 mins) on the date of service in preparation, delivery, and documentation of the care provided to Fernandez Russo excluding any time spent in the performance of separately billed services. Text in this note was generated using an ambient documentation service. I discussed the use of a device to record and summarize our discussion today. All persons present during the encounter consented to its use. * Celia Kohli LPN - 03/23/2024 8:47 AM EST Socks and Shoes Removed for Annual Diabetic Foot Screening RIGHT FOOT: No Reddened, Cracking, Or Open Areas Noted. RIGHT Dorsalis Pedis Pulse: Palpable RIGHT Posterior Tibial Pulse: Palpable RIGHT Monofilament:Patient reports difficulty feeling monofilament at Great toe- plantar surface, Third toe-plantar surface, Ball of Foot-base of great toe, Ball of Foot-base of 3rd toe, and Ball of Foot-base of little toe LEFT FOOT: No Reddened, Cracking or Open Areas Noted. LEFT Dorsalis Pedis Pulse: Palpable LEFT Posterior Tibial Pulse: Palpable LEFT Monofilament:Patient reports difficulty feeling monofilament at Great toe- plantar surface, Third toe-plantar surface, Ball of Foot-base of great toe, Ball of Foot-base of 3rd toe, and Ball of Foot-base of little toe Do you need diabetic shoes: No DM Foot Exam completed today. Provider aware. Celia Kohli LPN documented in this encounter Plan of Treatment Upcoming Encounters Date Type Department Care Team (Late st Contact Info) Description 04/07/2024 10:30 AM EST Office Visit Pharmacy, [place] [address] [place] [address] [facility] [address] [place] [address] 06/01/2024 10:20 AM EDT Office Visit Family [facility], [place] [address] [phone] Edgar Cardona MD [address] [place] [address] 09/15/2024 8:30 AM EDT Hospital Encounter ENDO [facility], Endoscopy [address] [phone] Manny Coker MD [address] [place] [address] 09/15/2024 8:30 AM EDT - 09/15/2024 9:30 AM EDT Surgery ENDO [facility], Endoscopy [address] [phone] Manny Coker MD [address] [place] [address] COLONOSCOPY FLEXIBLE PROXIMAL DIAGNOSTIC Scheduled Procedures Name Priority Associated Diagnoses Date/Ti me COLONOSCOPY FLEXIBLE PROXIMA L DIAGNOSTIC 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, colon Hernandez esophagus 09/15/2024 8:30 AM EDT ESOPHAGOGASTRODUODENOSCOPY ( EGD), FLEXIBLE, TRANSORAL, DIAGNOSTIC 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, colon Hernandez esophagus 09/15/2024 8:30 AM EDT Scheduled Referrals Name Type Priority Associated Diagnoses Orde r Schedule COLONOSCOPY, SURGERY REFERRAL OP Referral Within 30 days (routine) 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, colon Ordered: 03/23/2024 PHYSICAL THERAPY REFERRAL OP Referral Within 10 days (routine) Lumbar radiculopathy Herniated cervical disc Cervical radiculopathy Chronic pain syndrome Ordered: 03/23/2024 PHARMACIST MEDS THERAPY MGMT REFERRAL OP Referral Within 10 days (routine) Lumbar radiculopathy Herniated cervical disc Cervical radiculopathy Chronic pain syndrome Ordered: 03/23/2024 UPPER ENDOSCOPY SURGERY REFERRAL OP Referral Within 10 days (routine) 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 Gastroesophageal reflux disease without esophagitis Ordered: 03/23/2024 Health Maintenance Due Date Last Done Comments [...] this encounter Medical Devices Implanted Type Area [place] [employer] Device Identifier Shelf Expiration Date Model / Serial / Lot Concorde Proti 5 Dg, [id number] Implanted:Qty: 1 on 02/15/2022 by Ba Napoles MD [place] [facility] [place] N/A: Spine Lumbar [employer] 10/25/2025 [id number] / / [id number] Screw 7x55mm Implanted:Qty: 2 on 02/15/2022 by Ba Napoles MD at [place] [facility] [place] Screw N/A: Spine Lumbar [employer] [id number] / / Vivigen Mis Delivery System Pre-Filled Cannula With Cellular Bone Matrix (Processed By [employer], Exclusively Distributed By [employer]) Implanted:Qty: 1 on 02/15/2022 by Ba Napoles MD at [place] [facility] [place] N/A: Spine Lumbar [employer] 01/05/2023 -1899- / [id number] / [id number] Vivigen Mis Delivery System Pre-Filled Cannula With Cellular Bone Matrix (Processed By [employer], Exclusively Distributed By [employer]) Implanted:Qty: 1 on 02/15/2022 by Ba Napoles MD at [place] [facility] [place] N/A: Spine Lumbar [employer]ET 01/05/2023 -1899- / [id number] / [id number] Concorde Proti 5 Dg Implanted:Qty: 1 on 02/15/2022 by Ba Napoles MD at [place] [facility] [place] N/A: Spine Lumbar [employer] 06/03/2024 [id number] / / [id number] Screw 7.5gax83og Thr Maxtrix - [id number] Implanted:Qty: 2 on 02/15/2022 by Ba Napoles MD at [place] [facility] [place] N/A: Spine Lumbar SYNTHES : DEPUY 639.745 / / Screw Matrx 7.0x50mm - [id number] Implanted:Qty: 2 on 02/15/2022 by Ba Napoles MD at [place] [facility] [place] N/A: Spine Lumbar JNJ : [employer] 750 / / Cap Locking W/O Saddle Matrix - [id number] Implanted:Qty: 6 on 02/15/2022 by Ba Napoles MD at [place] [facility] [place] N/A: Spine Lumbar SYNTHES : DEPUY 632.099 / / Head Poly Top Load Matrix - [id number] Implanted:Qty: 6 on 02/15/2022 by Ba Napoles MD at [place] [facility] [place] N/A: Spine Lumbar SYNTHES : DEPUY 632.001 / / Pre Lordosed Anastacio W Line 75mm - [id number] Implanted:Qty: 2 on 02/15/2022 by Ba Napoles MD at [place] [facility] [place] N/A: Spine Lumbar JNJ : [employer] [id number] / / documented as of this encounter Visit Diagnoses Diagnosis Type 2 diabetes mellitus without complication, without long-term current use of insulin (HCC)- Primary 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, colon HTN, goal below 130/80 Unspecified essential hypertension Depression with anxiety Dysthymic disorder Lumbar radiculopathy Thoracic or lumbosacral neuritis or radiculitis, unspecified Herniated cervical disc Displacement of cervical intervertebral disc without myelopathy Cervical radiculopathy Brachial neuritis or radiculitis nos Chronic pain syndrome 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 Hernandez's esophagus Gastroesophageal reflux disease without esophagitis Esophageal reflux Acute bronchospasm 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, colon Hernandez [...] Russo Sr. Father Emergency Contact Care Teams Csr Technician Relationship Specialty Start Date End Date Aixa Booth PA-C [address] [address] PCP - General Physician Data Typist 12/10/23 documented as of this encounter
--- OUTSIDE RECORDS SUMMARY | 2024-06-02 06:23 | External Medical Summary | Summary of Care ---
Author Name Unknown Organization [facility] Address [address] [facility] [place] [address] Phone [phone] Care Team Providers Care Manager Wind Name Role Phone Aixa Booth PA-C Primary Care Provider [phone] Reason for Visit * Reason Comments eRx-Medication Refill Encounter Details Date Type Department Care Team (Late st Contact Info) Description 04/17/2024 Refill [facility] [address] [phone] Aixa Booth PA-C [address] [facility] [address] [phone] Acute bronchospasm Allergies Active Allergy Reactions Criticality Noted Date Comments Yellow Jacket Venom 07/31/2010 documented as of this encounter (statuses as of 04/18/2024) Medications OneTouch Verio In Vitro Strip (Glucose [...] 22 Active glipiZIDE 5 MG Oral Tablet (Glucotrol)Indic [...] OR WHEEZING. 18 g 04/19/19 25 Active Albuterol Sulfate HFA 108 (90 Base) MCG/ACT Inhalation Aerosol SolutionIndicati ons:Acute bronchospasm Inhale 2 Puffs by mouth every 6 hours as needed for Shortness of Breath or Wheezing. 18 g 03/23/19 25 2024 Discontinued documented as of this encounter (statuses as of 04/18/2024) Active Problems Problem Noted Date Diagnosed Date [...] as of this encounter (statuses as of 04/18/2024) Resolved Problems Problem Noted Date Diagnosed Date [...] as of this encounter (statuses as of 04/18/2024) Immunizations Name Administration Dates Next Due Pneumococcal Conjugate Vacci ne, 20-valent ([id number]) 05/28/2022 Seasonal Influenza Vac., MDV , IM, [...] 12/19/2023 6:41 PM [facility] Josr Beyer RN * Do you have difficulty dressing or bathing? (5 years old or older) Answer Date of Assessment Author No 12/19/2023 6:41 PM PORT[facility]OT Josr Beyer RN * Because of a [...] encounter Miscellaneous Notes * Telephone Encounter - Surya Kelsey [facility] - 04/18/2024 1:02 PM ESTSigned Prescriptions: Disp Refills Albuterol Sulfate HFA 108 (90 Base) MCG/AC*18 g 0 Sig: INHALE 2 PUFFS BY MOUTH EVERY 6 HOURS NEEDED FOR SHORTNESS OF BREATH OR WHEEZING.Authorizing Provider: AIXA BOOTH User: SURYA KELSEY documented in this encounter Plan of Treatment Upcoming Encounters Date Type Department Care Team (Late st Contact Info) Description 06/01/2024 10:20 AM EDT Office Visit [facility] [address] [phone] Edgar Cardona MD [address] [address] 09/15/2024 8:30 AM EDT Hospital Encounter ENDO [facility], Endoscopy Suite [facility] [address] [facility] [place] [phone] Manny Coker MD [address] [place] [address] 09/15/2024 8:30 AM EDT - 09/15/2024 9:30 AM EDT Surgery ENDO [facility], Endoscopy [address] [facility] [address] [facility] [place] [place] [phone] Manny Coker MD [address] [place] [address] COLONOSCOPY FLEXIBLE PROXIMAL DIAGNOSTIC Scheduled Procedures Name [...] 08/14/2021, Additional history exists GFR 03/23/2025 03/23/2024, 1102/2023, 12/19/2023, Additional history exists Lipid Panel 03/23/2029 [...] this encounter Medical Devices Implanted Type Area Diabetes Physician Device Identifier Shelf Expiration Date Model / Serial / Lot Poordjack Proti 5 Dg, [id number] Implanted:Qty: 1 on 02/15/2022 by Ba Napoles MD at [place] [facility] [place] Cage N/A: Spine Lumbar [employer] 10/25/2025 [id number] / / [id number] Screw 7x55mm Implanted:Qty: 2 on 02/15/2022 by Ba Napoles MD at [place] [facility] [place] Screw N/A: Spine Lumbar [employer] 04.639.755 / / Vivigen Mis Delivery System Pre-Filled Cannula With Cellular Bone Matrix (Processed By [employer], Exclusively Distributed By [employer]) Implanted:Qty: 1 on 02/15/2022 by Ba Napoles MD at [place] [facility] [place] N/A: Spine Lumbar LIFENET 01/05/2023 -1899-001 / [id number] / [id number] Vivigen Mis Delivery System Pre-Filled Cannula With Cellular Bone Matrix (Processed By [employer], Exclusively Distributed By [employer]) Implanted:Qty: 1 on 02/15/2022 by Ba Napoles MD at [place] [facility] [place] N/A: Spine Lumbar LIFENET 01/05/2023 BL-1899- / [id number] / [id number] Concorde Proti 5 Dg Implanted:Qty: 1 on 02/15/2022 by Ba Napoles MD at [place] [facility] [place] N/A: Spine Lumbar [employer] 06/03/2024 [id number] / / [id number] Screw 7.4tzy09th Thr Maxtrix - [id number] Implanted:Qty: 2 on 02/15/2022 by Ba Napoles MD at [place] [facility] [place] N/A: Spine Lumbar SYNTHES : DEPUY [id number] / / Screw Matrx 7.0x50mm - [id number] Implanted:Qty: 2 on 02/15/2022 by Ba Naploes MD at [place] [facility] [place] N/A: Spine Lumbar JNJ : [employer] 750 / / Cap Locking W/O Saddle Matrix - [id number] Implanted:Qty: 6 on 02/15/2022 by Ba Napoles MD at [place] [facility] [place] N/A: Spine Lumbar SYNTHES : DEPUY [id number] / / Head Poly Top Load Matrix - [id number] Implanted:Qty: 6 on 02/15/2022 by Ba Napoles MD at [place] [facility] [place] N/A: Spine Lumbar SYNTHES : DEPUY [id number] / / Pre Lordosed Anastacio W Line 75mm - [id number] Implanted:Qty: 2 on 02/15/2022 by Ba Napoles MD at [place] [facility] [place] N/A: Spine Lumbar JNJ : DE[employer]INE [id number] / / documented as of this encounter Visit Diagnoses Diagnosis Acute bronchospasm 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, [...] Russo Sr. Father Emergency Contact Care Teams Manager Wind Relationship Specialty Start Date End Date Aixa Booht PA-C [address] [address] PCP - General Physician Picker Packer 12/10/23 documented as of this encounter
--- OUTSIDE RECORDS SUMMARY | 2024-06-02 06:23 | External Medical Summary | Summary of Care ---
Author Name Unknown Organization [facility] Address [address] [facility] [place] [address] Phone [phone] Care Team Providers Care Hoop Coiling Machine Operator Name Role Phone Aixa Booth PA-C Primary Care Provider [phone] Encounter Details Date Type Department Care Team (Late st Contact Info) Description 03/23/2024 Telephone [facility] [place] [address] [facility] [place] [phone] Aixa Booth PA-C [facility] [place] [id number] Allergies Active Allergy Reactions Criticality Noted Date Comments Yellow Jacket Venom 07/31/2010 documented as of this encounter (statuses as of 03/23/2024) Medications OneTouch Verio In Vitro Strip (Glucose [...] daily E11.9 100 Each 1 2 Active glipiZIDE 5 MG Oral Tablet (Glucotrol)Indica tions:Type 2 diabetes mellitus without complication, without long-term current use of insulin (HCC) Take 1 Tablet by mouth in the morning. 90 Tablet 3 4 Active metFORMIN HCl 500 MG Oral Tablet [...] before bedtime. 90 Tablet 3 4 Active Albuterol Sulfate HFA 108 (90 Base) MCG/ACT Inhalation Aerosol SolutionIndicatio ns:Acute bronchospasm Inhale 2 Puffs by mouth every 6 hours as needed for Shortness of Breath or Wheezing. 18 g 5 Active Famotidine 20 MG Oral Tablet (Pepcid)Indicatio ns: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,Gastroe sophageal reflux disease without esophagitis Take 1 Tablet by mouth at bedtime as needed for Heartburn. 90 Tablet 3 5 Active documented as of this encounter (statuses as of 03/23/2024) Active Problems Problem Noted Date Diagnosed Date [...] as of this encounter (statuses as of 03/23/2024) Resolved Problems Problem Noted Date Diagnosed Date [...] as of this encounter (statuses as of 03/23/2024) Immunizations Name Administration Dates Next Due Pneumococcal Conjugate Vacci ne, 20-valent ([id number]) 05/28/2022 Seasonal Influenza Vac., MDV , IM, 0.5 mL (Fluzone) 11/30/2013,12/24/2012,12/25/2011(Deferr ed: Patient Refused) Seasonal Influenza, PF, 6 M & above, IM , (FluLaval or Fluzone) 12/16/2022(Deferred: Patient Refused) TDAP (age 10 and older)(Boostrix) 06/18/2022 TDAP, Age 7 and older, IM (Adacel) 12/25/2011(De leydi: Patient Refused) documented as of this encounter [...] Josr Austin RN * Do you have serious difficulty [...] No 12/19/2023 6:41 PM Josr Austin RN documented as of this encounter Mental Status * Because of a physical, mental, or emotional condition, do you have serious difficulty concentrating, remembering, or making decisions? (5 years old or older) Answer Entry Date Author No 12/19/2023 6:41 PM Josr Austin RN documented in this encounter Miscellaneous Notes * Telephone Encounter - Julianne Capps OSA - 03/23/2024 11:15 AM EST Colon/egd 09/15 * Telephone Encounter - Leighann Ruff OSA - 03/23/2024 9:33 AM EST Please assists pt with and endoscopy and colonoscopy pt is a diabetic Pt like between 9 and 10 am any day documented in this encounter Plan of Treatment Upcoming Encounters Date Type Department Care Team (Late st Contact Info) Description 04/07/2024 10:30 AM EST Office Visit Pharmacy, [place] [address] [facility] [place] [address] [place] [facility] [address] [facility] [place] [address] 06/01/2024 10:20 AM EDT Office Visit [facility] [address] [facility] [place] [phone] Edgar Cardona MD 21 [place] [address] 09/15/2024 8:30 AM EDT Hospital Encounter [facility], Endoscopy [address] [phone] Manny Coker MD [address] [place] [address] 09/15/2024 8:30 AM EDT - 09/15/2024 9:30 AM EDT Surgery [facility], Endoscopy [address] [phone] Manny Coker MD [address] [place] [address] COLONOSCOPY FLEXIBLE PROXIMAL DIAGNOSTIC Scheduled Procedures Name [...] this encounter Medical Devices Implanted Type Area Finished Metal Repairer Device Identifier Shelf Expiration Date Model / Serial / Lot Concorde Proti 5 Dg, [id number] Implanted:Qty: 1 on 02/15/2022 by Ba Napoles MD at [facility] [place] Cage N/A: Spine Lumbar [employer] 10/25/2025 [id number] / / [id number] Screw 7x55mm Implanted:Qty: 2 on 02/15/2022 by Ba Napoles MD at [facility] [place] Screw N/A: Spine Lumbar [employer] / / Vivigen Mis Delivery System Pre-Filled Cannula With Cellular Bone Matrix (Processed By [email or web address], Exclusively Distributed By [facility] [employer]) Implanted:Qty: 1 on 02/15/2022 by Ba Napoles MD at [facility] [place] N/A: Spine Lumbar [employer] 01/05/2023 -001 / [id number] / [id number] Vivigen Mis Delivery System Pre-Filled Cannula With Cellular Bone Matrix (Processed By [email or web address], Exclusively Distributed By [employer]) Implanted:Qty: 1 on 02/15/2022 by Ba Napoles MD at [facility] [place] N/A: Spine Lumbar [facility] 01/05/2023 -001 / [id number] / [id number] Concorde Proti 5 Dg Implanted:Qty: 1 on 02/15/2022 by Ba Napoles MD at [facility] [place] N/A: Spine Lumbar [employer] 06/03/2024 [id number] / / [id number] Screw [id number] Thr Maxtrix - [id number] Implanted:Qty: 2 on 02/15/2022 by Ba Napoles MD at [facility] [place] N/A: Spine Lumbar SYNTHES : DEPUY 74 / / Screw Matrx 7.0x50mm - [id number] Implanted:Qty: 2 on 02/15/2022 by Ba Napoles MD at [facility] [place] N/A: Spine Lumbar JNJ : [employer] 9750 / / Cap Locking W/O Saddle Matrix - [id number] Implanted:Qty: 6 on 02/15/2022 by Ba Napoles MD at [facility] [place] N/A: Spine Lumbar SYNTHES : DEPUY 63099 / / Head Poly Top Load Matrix - [id number] Implanted:Qty: 6 on 02/15/2022 by Ba Napoles MD at [facility] [place] N/A: Spine Lumbar SYNTHES : DEPUY 001 / / Pre Lordosed Anastacio W Line 75mm - [id number] Implanted:Qty: 2 on 02/15/2022 by Ba Napoles MD at [facility] [place] N/A: Spine Lumbar JNJ : [facility] SPINE [id number] / / documented as of this encounter [...] Russo Sr. Father Emergency Contact Care Teams Hoop Coiling Machine Operator Relationship Specialty Start Date End Date Aixa Booth PA-C [address] [place] [phone] PCP - General Physician Orientation And Mobility Specialist 12/10/23 documented as of this encounter
--- OUTSIDE RECORDS SUMMARY | 2024-06-02 06:23 | External Medical Summary ---
Author Name Unknown Address Unknown Organization [id number]:[facility] [place] - [address] [place] [address] Laboratory Report Ordering Provider Test Date Status CHANDNI BEASLEY 03/23/2024 09:46:27 Final Observation Date Value Abnormality Reference (Units ) Status WBC, Total 03/23/2024 09:46:27 3.81 Below low normal 4.00-10.80 (K/uL) Final RBC 03/23/2024 09:46:27 4.39 4.50-5.25 (M/uL) Final Hemoglobin 03/23/2024 09:46:27 13.8 Below low normal 14.0-16.8 (g/dL) Final HCT 03/23/2024 09:46:27 41.5 40.0-48.4 (%) Final MCV 03/23/2024 09:46:27 94.5 82.0-99.5 (fL) Final MCH 03/23/2024 09:46:27 31.4 27.0-34.0 (pg) Final MCHC 03/23/2024 09:46:27 33.3 32.0-36.0 (g/dL) Final RDW 03/23/2024 09:46:27 13.3 11.5-15.5 (%) Final Platelets 03/23/2024 09:46:27 232 140-400 (K/uL) Final MPV 03/23/2024 09:46:27 9.9 6.6-11.1 (fL) Final Nucleated erythrocytes/100 leukocytes [Ratio] in Blood by Automated count 03/23/2024 09:46:27 0 <=0 (/100 WBCs) Final Performing Location [facility] [place] - [address] [place] [address]
--- OUTSIDE RECORDS SUMMARY | 2024-06-02 06:23 | External Medical Summary ---
Author Name Unknown Address Unknown Organization [id number]:[facility] [place] - [address] [place] [address] Laboratory Report Ordering Provider Test Date Status CHANDNI BEASLEY 03/23/2024 09:46:27 Final Observation Date Value Abnormality Reference (Units ) Status HbA1C 03/23/2024 09:46:27 6.7 Above high normal 4. 0-5.6 (%) Final The use of HbA1c to monitor glycemic status is based on normal hemoglobin and HbA composition. This test should not be used in patients with abnormal hemoglobin that affects the half life of the red blood cell or the in vivo glycation rates. Glucose, estimated average 03/23/2024 09:46:27 146 Above high normal <126 (mg/dL) Marc fontana Performing Location [facility] [place] - [address] [place] [address]
--- OUTSIDE RECORDS SUMMARY | 2024-06-02 06:23 | External Medical Summary | Summary of Care ---
Author Name Unknown Organization [facility] Address [address] [place] [address] Phone [phone] Care Team Providers Care Microsoft Access Developer Name Role Phone Aixa Booth PA-C Primary Care Provider [phone] Reason for Visit * Reason Onset Date Comments Hospital Follow-Up 12/23/2023 LAURA Encounter Details Date Type Department Care Team (Late st Contact Info) Description 12/23/2023 Telephone Ancillary 1st Floor, [place] [address] [facility] [place] [address] Ilana Leahy, RN Hospital Follow-Up (LAURA) Allergies Active Allergy Reactions Criticality Noted Date Comments Yellow Jacket Venom 07/31/2010 documented as of this encounter (statuses as of 12/23/2023) Medications Medication Sig Dispensed Refills Start Date End Date Status OneTouch Verio In Vitro Strip (Glucose Blood)Indications:T ype 2 diabetes mellitus without complication, without long-term current use of insulin (HCC),Uncontrolled type 2 diabetes mellitus with hyperglycemia (HCC) Check BS once daily E11.9 100 Strip 1 08/14/2021 Active OneTouch UltraSoft LancetsIndications: Type 2 diabetes mellitus without complication, without long-term current use of insulin (HCC),Uncontrolled type 2 diabetes mellitus with hyperglycemia (HCC) Check BS once daily E11.9 100 Each 1 08/14/2021 Active glipiZIDE 5 MG Oral Tablet (Glucotrol)Indicati ons:Type 2 diabetes mellitus without complication, without long-term current use of insulin (HCC) Take 1 Tablet by mouth in the morning. 90 Tablet 3 03/06/2023 Active metFORMIN HCl 500 MG Oral Tablet (Glucophage)Indicat ions:Type 2 diabetes mellitus without complication, without long-term current use of insulin (HCC) Take 2 Tablets by mouth 2 times a day with morning and evening meals. 360 Tablet 3 03/06/2023 Active Thiamine HCl 100 MG Oral Tablet (vitamin B-1)Indications:His tory of alcohol use disorder Take 1 Tablet by mouth in the morning. 90 Tablet 3 05/30/2023 Active hydrOXYzine HCl 50 MG Oral TabletIndications:G AD (generalized anxiety disorder),Current severe episode of major depressive 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, unspecified whether recurrent (HCC) Take 1 Tablet by mouth every 6 hours as needed for Anxiety. 40 Tablet 2 05/30/2023 Active Naltrexone HCl 50 MG Oral Tablet (Revia)Indications: History of alcohol use disorder Take 1 Tablet by mouth in the morning. 90 Tablet 3 07/03/2023 Active buPROPion HCl ER (XL) 300 MG Oral Tablet Extended Release 24 Hour (Wellbutrin XL)Indications:Depr ession with anxiety Take 1 Tablet by mouth in the morning. 90 Tablet 3 12/02/2023 Active Citalopram Hydrobromide 40 MG Oral Tablet (CeleXA)Indications :Depression with anxiety Take 1 Tablet by mouth in the morning. 90 Tablet 3 12/02/2023 Active Folic Acid 1 MG Oral Tablet Take 1 Tablet by mouth in the morning. 90 Tablet 3 12/02/2023 Active Omeprazole 40 MG Oral Capsule Delayed Release (PriLOSEC)Indicatio ns:Gastroesophageal reflux disease without esophagitis Take 1 Capsule by mouth in the morning. 1 hour before the first meal of the day. 90 Capsule 3 12/02/2023 Active Atorvastatin Calcium 10 MG Oral Tablet (Lipitor)Indication s:Type 2 diabetes mellitus without complication, without long-term current use of insulin (HCC) Take 1 Tablet by mouth in the morning. 90 Tablet 3 12/02/2023 Active Baclofen 10 MG Oral Tablet (Lioresal)Indicatio ns:Lumbar radiculopathy Take 1 Tablet by mouth in the morning and 1 Tablet at noon and 1 Tablet before bedtime. 90 Tablet 5 12/02/2023 Active Additional Information Patient taking differently:10 mg Oral TID(AM/NOON/HS),Takes PRN, Reported on 12/19/2023 Gabapentin 800 MG Oral Tablet (Neurontin)Indicati ons:Lumbar radiculopathy,Uncom plicated alcohol dependence (HCC) Take 1 Tablet by mouth in the morning and 1 Tablet at noon and 1 Tablet before bedtime. 270 Tablet 3 12/02/2023 Active Additional Information Patient taking differently:800 mg Oral TID(AM/NOON/HS),Taking PRN, Reported on 12/19/2023 Metoprolol Tartrate 25 MG Oral Tablet (Lopressor)Indicati ons:HTN, goal below 130/80 Take 0.5 Tablets by mouth in the morning and 0.5 Tablets before bedtime. 90 Tablet 3 12/02/2023 Active Additional Information Patient taking differently: 25 mgOralDaily(AM), Reported on 12/19/2023 Albuterol Sulfate HFA 108 (90 Base) MCG/ACT Inhalation Aerosol Solution Inhale 2 Puffs by mouth every 6 hours as needed for Shortness of Breath or Wheezing. 18 g 12/20/2023 01/19/2024 Active documented as of this encounter (statuses as of 12/23/2023) Active Problems Problem Noted Date Diagnosed Date YTRA (acute kidney injury) 12/19/2023 Chest pain 12/19/2023 Food insecurity 06/25/2022 Overview: Per [facility] Protocol Alcohol withdrawal syndrome with complication Uncomplicated alcohol dependence 10/19/2021 Tremulousness 2019 Alcohol abuse 2019 Type 2 diabetes mellitus without complication Psychophysiological insomnia 01/07/2019 HTN, goal below 130/80 06/09/2018 Allergy to yellow jackets 04/30/2016 Overview: ANAPHYLAXIS Hernandez's esophagus 03/23/2014 Lumbar radiculopathy 05/27/2013 Overview: LE and UE EMG 2006- acute denervation in L4 root supplied muscles. Herniated cervical disc 05/27/2013 Overview: X 3 Lumbar disc herniation 05/27/2013 Overview: X 3 CTS (carpal tunnel syndrome) 05/27/2013 Overview: EMG 2007 Esophageal reflux 01/04/2011 Depression with anxiety 01/04/2011 documented as of this encounter (statuses as of 12/23/2023) Resolved Problems Problem Noted Date Diagnosed Date Resolved Date Uncontrolled type 2 diabetes mellitus with hyperglycemia 05/25/2022 03/06/2023 Accidental caffeine overdose 2019 08/14/2021 Moderate episode of recurren t major depressive disorder 10/08/2019 05/25/2022 Alcohol-induced mood disorder 10/08/2019 10/19/2021 Hemochromatosis 11/04/2018 01/07/2019 Prediabetes 11/25/2017 01/23/2019 Overview: Per Prediabetes protocol #1 MEDICATION USE AGREEMENT 11/30/2013 IFG (impaired fasting glucose) 07/24/2013 10/02/2017 Overview: FBG 6/14 = 113 Backache 05/09/2011 10/02/2017 Toxic effect of venom 07/31/20102017 Overview: ICD-10 update of inactive term documented as of this encounter (statuses as of 12/23/2023) Immunizations Name Administration Dates Next Due Pneumococcal Conjugate Vacci ne, 20-valent ([id number]) 05/28/2022 Seasonal Influenza Vac., MDV , IM, [...] Answer Date Recorded PHQ Adult Total Score 9 03/06/2023 Hunger Vital Sign Answer Date Recorded Within the past 12 months, y ou worried that your food would run out before you got the money to buy more. Often true Within the past 12 months, t he food you bought just didn't last and you didn't have money to get more. Sometimes true Childcare Answer Date Recorded Do you feel overwhelmed with taking care of a child, family member or friend? Yes 03/06/2023 Does your family need help f inding childcare? (Household - for ages 0-17 years) Not on file 03/06/2023 Clothing Answer Date Recorded Have you been unable to get clothing when it was really needed? No 03/06/2023 Is your family able to get c lothes or diapers when needed? (Household - for ages 0-17 years) Not on file 03/06/2023 Personal Safety Answer Date Recorded Do you feel unsafe or have concerns for your saf ety? No 12/19/2023 Do you have concerns for you r family's safety? (Household - for ages 0-17 years) Not on file 12/19/2023 Utilities Answer Date Recorded Do you have trouble paying y our heating, water, or electric bill? No 12/19/2023 Is your family able to pay t he heat, water, or electric bill? (Household - for ages 0-17 years) Not on file 12/19/2023 Does your family have access to good internet? (Household - for ages 0-17 years) Not on file 12/19/2023 Employment Status Answer Date Recorded Are you unemployed or without regular income? Ye s 03/06/2023 Does the household have a re gular source of income? (Household - for ages 0-17 years) Not on file 03/06/2023 Social Connections Answer Date Recorded How often do you feel lonely or isolated from th ose around you? Often 03/06/2023 Financial Resource Strain Answer Date R ecorded Do you have any trouble payi ng for your medications, or do you think you might in the future? Yes 03/06/2023 Does your family have troubl e paying for medicine? (Household - for ages 0-17 years) Not on file 03/06/2023 Transportation Needs Answer Date Record ed READ ONLY Do you have troubl e getting a ride to medical visits or work? Often True 12/19/2023 Does your family have a hard time getting a ride to doctors visits? (Household - for ages 0-17 years) Not on file 12/19/2023 Has lack of transportation k ept you from medical appointments, meetings, work, or from getting things needed for daily living? Check all that apply. No 12/19/2023 Do you (or your family) have trouble finding or paying for a ride (transportation)? (Household - for ages 0-17 years) Not on file 12/19/2023 Housing Stability Answer Date Recorded Do you currently live in a s helter or have no steady place to sleep at night? No 12/19/2023 READ ONLY Do you think you a re at risk of becoming homeless? No 12/19/2023 Does your family worry about paying for your home or becoming homeless? (Household - for ages 0-17 years) Not on file 1 Are you homeless or worried that you might be in the future? No 12/19/2023 Are you (or your family) hari eless or worried that you might be in the future? (Household - for ages 0-17 years) Not on file Food Insecurity Answer Date Recorded Do you need food for this week? No 12/19/2023 Are you able to get enough f ood for your family? (Household - for ages 0-17 years) Not on file 12/19/2023 Does your family need food t his week? (Household - for ages 0-17 years) Not on file 12/19/2023 Do you always have enough fo od for your family? (Household - for ages 0-17 years) Not on file 12/19/2023 Sex and Gender Information Value Date Recorded Sex Assigned at Male 06/09/2018 8:43 AM EDT Gender Identity Male 06/09/2018 8:43 AM EDT Sexual Orientation Straight 06/09/2018 8: 43 AM EDT Job Start Date Occupation Industry Not on file Not on file Not on file documented as of this encounter Functional Status Functional Status Response Date of Assess ment Are you deaf or do you have serious difficulty h earing? No 12/19/2023 Are you blind or do you have serious difficulty seeing, even when wearing glasses? No 12/19/2023 Do you have serious difficul ty walking or climbing stairs? (5 years old or older) No 12/19/2023 Do you have difficulty dress ing or bathing? (5 years old or older) No 12/19/2023 Because of a physical, menta l, or emotional condition, do you have difficulty doing errands alone such as visiting a doctor s office or shopping? (15 years old or older) No 12/19/19 Cognitive Status Response Date of Assessm ent Because of a physical, menta l, or emotional condition, do you have serious difficulty concentrating, remembering, or making decisions? (5 years old or older) No 12/19/2023 documented as of this encounter Miscellaneous Notes * Telephone Encounter - Ilana Leahy RN - 12/23/2023 12:38 PM EST Transitions of Care Note Reason for Referral:Recent Admission Phone visit for follow up: inpatient hospitalization Admitted to: [facility], Date: 12/19/23 Discharged to: home, Date: 12/20/23 Diagnosis driving hospitalization: chest pain Source/Contact: Patient SUBJECTIVE Consent: Verbal consent for review of hospital discharge: Yes REVIEW OF SYSTEMS Patient/Other Reports: Current patient/caregiver problems or concerns: Patient states he did get the inhaler and it does help with his shortness of breath CV: Denies problems Pulmonary: Denies problems Chills/Sweats/Fever:Denies chills/sweats Denies fever Appetite:Denies problems such as nausea, vomiting, burning, decreased appetite Current diet: normal diet Bowel: denies problems Bladder: denies problems Wound (If applicable): N/A Pain:Denies Sleep:Denies problems FUNCTIONAL STATUS: ADL'S: Needs Assistance With:N/A as pt is independent IADL'S: Needs Assistance With:N/A as pt is independent Cognitive and Mental Health: denies problems, alert and oriented x 3, and able to communicate, understand instructions, process information. MEDICATION RECONCILIATION Medications: Patient states he did stop the lisinopril and he did get the albuterol inhaler. He feels he is missing one of his depression pills, but unable to say which ones he has currently. Encouraged to bring bottles along to appointment so can determine which one is needed. ASSESSMENT Medication Risk Assessment: No risks identified Did patient fail outpatient treatment? No Discharge instructions available for review? Yes PLAN Symptom Monitoring Interventions:Member/caregiver education - signs and symptoms to contact PrimaryCare (DO NOT DELETE-Three reich symptoms patient is to report to PCP) 1. Shortness of breath 2. Chest pain 3. Fever/chills Home Management SupervisorSpecial Forces Medical Sergeant of Care interventions/Action Plan: 5 - 7 day follow-up with PCP in place - Date: 12/27/23 Educated on role of LAURA completed with patient/caregiver. Educated patient/caregiver on patient right to have input on LAURA plan of care. Identified Care Gaps: Yes Care Gaps closed this call: Appointment made or confirmed and Medication adherence Re-evaluation of Plan of Care and progress towards goals achievement: Patient education this visit: Verbal, see above Plan to instructed to call Primary Care Provider with change in symptoms or as needed before next follow-up, discharge needs met, verbalizes understanding and agrees with plan. Ilana Leahy RN documented in this encounter Plan of Treatment Upcoming Encounters Date Type Department Care Team (Late st Contact Info) Description 12/27/2023 2:40 PM EST Office Visit [facility] [address] [place] [phone] Joey Barnes MD [address] [place] [phone] 03/17/2024 8:00 AM EST [facility] [address] [place] [address] Leticia Shaw PA-C [address] [place] [address] 06/01/2024 10:20 AM EDT Office Visit [facility] [place] [address] [place] [phone] Edgar Cardona MD [address] [place] [phone] Scheduled Procedures Name Priority Associated Diagnoses Date/Ti me COLONOSCOPY FLEXIBLE PROXIMAL DIAGNOSTIC Recall 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, colon Hernandez esophagus ESOPHAGOGASTRODUODENOSCOPY ( EGD), FLEXIBLE, TRANSORAL, DIAGNOSTIC Recall 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, colon Hernandez esophagus Health Maintenance Due Date Last Done Comments [...] 2023 11/30/2013, 12/24/2012 Albumin/Creatinine Ratio 03/06/2024 03/06/2023 Depression Monitoring 03/06/2024 03/06/2023 Diabetic Foot Exam 03/06/2024 03/06/2023, 0 08/14/2021, 07/01/2020 HbA1c 06/17/2024 12/19/2023, 11/19, 04/28/2022, Additional history exists B-12 07/02/2024 07/03/2023, 06/18, 01/22/2019 Diabetic Eye Exam 12/01/2024 12/02/2023, , 10/08/2019 GFR 12/19/2024 12/20/2023, 11/20, 07/03/2023, Additional history exists Lipid Panel 12/18/2028 12/19/2023, 06/18, 10/08/2019, Additional history exists DTap/Tdap Vaccines (2 - Td or Tdap) 06/18/2032 06/18/2022 RETIRED - COLONOSCOPY-EVERY 5 YRS AGES 18-100 Discontinued 11/05/2013, 11/05/2013 Pneumococcal Vaccine: Pediatrics (0 to 5 Years) and At-Risk Patients (6 to 64 Years) Completed 05/28/2022 HPV (Gardasil) Vaccine Aged Out No lo nger eligible based on patient's age to complete this topic MENINGOCOCCAL (MENACTRA/MENVEO) Aged Out No longer eligible based on patient's age to complete this topic documented as of this encounter Medical Devices Implanted Type Area Receivable Clerk Device Identifier Shelf Expiration Date Model / Serial / Lot Concorde Proti 5 Dg, [id number] Implanted:Qty: 1 on 02/15/2022 by Ba Napoles MD at OR [facility] Cage N/A: Spine Lumbar [employer] 10/25/2025 [id number] / / [id number] Screw 7x55mm Implanted:Qty: 2 on 02/15/2022 by Ba Napoles MD at OR [facility] Screw N/A: Spine Lumbar [employer] [id number] / / Vivigen Mis Delivery System Pre-Filled Cannula With Cellular Bone Matrix (Processed By [employer], Exclusively Distributed By [employer]) Implanted:Qty: 1 on 02/15/2022 by Ba Napoles MD at OR [facility] N/A: Spine Lumbar LIFENET 01/05/2023 -1899-001 / [id number] / [id number] Vivigen Mis Delivery System Pre-Filled Cannula With Cellular Bone Matrix (Processed By [employer], Exclusively Distributed By [employer]) Implanted:Qty: 1 on 02/15/2022 by Ba Napoles MD at OR [facility] N/A: Spine Lumbar LIFENET 01/05/2023 -1899-001 / [id number] / [id number] Concorde Proti 5 Dg Implanted:Qty: 1 on 02/15/2022 by Ba Napoles MD at OR [facility] N/A: Spine Lumbar [employer] 06/03/2024 [id number] / / [id number] Screw [id number] Thr Maxtrix - [id number] Implanted:Qty: 2 on 02/15/2022 by Ba Napoles MD at OR [facility] N/A: Spine Lumbar SYNTHES : DEPUY 9745 / / Screw Matrx 7.0x50mm - [id number] Implanted:Qty: 2 on 02/15/2022 by Ba Napoles MD at OR [facility] N/A: Spine Lumbar JNJ : [employer] 750 / / Cap Locking W/O Saddle Matrix - [id number] Implanted:Qty: 6 on 02/15/2022 by Ba Napoles MD at OR [facility] N/A: Spine Lumbar SYNTHES : DEPUY 099 / / Head Poly Top Load Matrix - [id number] Implanted:Qty: 6 on 02/15/2022 by Ba Napoles MD at OR [facility] N/A: Spine Lumbar SYNTHES : DEPUY 001 / / Pre Lordosed Anastacio W Line 75mm - [id number] Implanted:Qty: 2 on 02/15/2022 by Ba Napoles MD at OR [facility] N/A: Spine Lumbar JNJ : [employer] [id number] / / documented as of this encounter [...] Russo Sr. Father Emergency Contact Care Teams Microsoft Access Developer Relationship Specialty Start Date End Date Aixa Booth PA-C [address] [place] [phone] PCP - General Physician Underpresser Hand 12/10/23 documented as of this encounter
--- OUTSIDE RECORDS SUMMARY | 2024-06-02 06:23 | External Medical Summary ---
Author Name Unknown Address Unknown Organization [id number]:[place] [facility] [place] [address] [place] [address] Laboratory Report Ordering Provider Test Date Status CHANDNI BEASLEY 03/23/2024 09:46:27 Final Observation Date Value Abnormality Reference (Units ) Status Vitamin B12 03/23/2024 09:46:27 204 296-3231 (pg/mL) Final Performing Location [facility] - [address] [place] [address]
--- OUTSIDE RECORDS SUMMARY | 2024-06-02 06:23 | External Medical Summary | Summary of Care ---
Author Name Unknown Organization [facility] Address [address] [facility] [place] [address] Phone [phone] Care Team Providers Care Facility Practice Specialist Name Role Phone Aixa Booth PA-C Primary Care Provider [phone] Encounter Details Date Type Department Care Team (Late st Contact Info) Description 03/23/[address] [facility] [place] [address] [facility] [place] [phone] Aixa Booth PA-C [facility] [place] [address] Allergies Active Allergy [...] Next Due Pneumococcal Conjugate Vacci ne, 20-valent ([id number]) 05/28/2022 Seasonal Influenza Vac., MDV , IM, [...] 04/07/2024 10:30 AM EST Office Visit Pharmacy, [place] [address] [facility] [place] [address] [place] [facility] [address] [facility] [place] [address] 06/01/2024 10:20 AM EDT Office Visit [facility] [address] [facility] [place] [phone] Edgar Cardona MD 21 [facility] [address] 09/15/2024 8:30 AM EDT Hospital Encounter [facility]O [facility] Endoscopy [address] [phone] Manny Coker MD [address] [place] [address] 09/15/2024 8:30 AM EDT - 09/15/2024 9:30 AM EDT Surgery [facility], Endoscopy [address] [phone] Manny Coker MD [address] [place] [address] COLONOSCOPY FLEXIBLE PROXIMAL DIAGNOSTIC Scheduled Procedures Name [...] 11/30/2013, 12/24/2012 Albumin/Creatinine Ratio 03/06/2024 03/06/2023 HbA1c 06/17/2024 03/23/2024, 11/20, 12/15/2022, Additional history exists B-12 07/02/2024 07/03/2023, 06/18, 01/22/2019 Diabetic Eye Exam 12/01/2024 12/02/2023, , 10/08/2019 GFR 12/19/2024 12/20/2023, 11/20, 07/03/2023, Additional history exists Depression Monitoring 03/23/2025 03/23/2024 Diabetic Foot Exam 03/23/2025 03/23/2024, 0 03/06/2023, 08/14/2021, Additional history exists Lipid Panel 12/18/2028 12/19/2023, [...] this encounter Medical Devices Implanted Type Area Furnace Process Supervisor Device Identifier Shelf Expiration Date Model / Serial / Lot Concchivoe Proti 5 Dg, [id number] Implanted:Qty: 1 on 02/15/2022 by Ba Napoles MD at OR [facility] Cage N/A: Spine Lumbar [employer] 10/25/2025 [id number] / / [id number] Screw 7x55mm Implanted:Qty: 2 on 02/15/2022 by Ba Napoles MD at OR [facility] Screw N/A: Spine Lumbar [employer] / / Vivigen Mis Delivery System Pre-Filled Cannula With Cellular Bone Matrix (Processed By [employer] Everywhere, Exclusively Distributed By [employer]) Implanted:Qty: 1 on 02/15/2022 by Ba Napoles MD at OR [facility] N/A: Spine Lumbar LIFENET 01/05/2023 -1899-001 / [id number] / [id number] Vivigen Mis Delivery System Pre-Filled Cannula With Cellular Bone Matrix (Processed By [employer] Everywhere, Exclusively Distributed By [employer]) Implanted:Qty: 1 on 02/15/2022 by Ba Napoles MD at OR [facility] N/A: Spine Lumbar [facility] 01/05/2023 - / [id number] / [id number] Pochivoe Proti 5 Dg Implanted:Qty: 1 on 02/15/2022 by Ba Napoles MD at OR [facility] N/A: Spine Lumbar [employer] 06/03/2024 [id number] / / [id number] Screw 7.7vky11ml Thr Maxtrix - [id number] Implanted:Qty: 2 on 02/15/2022 by Ba Napoles MD at OR [facility] N/A: Spine Lumbar SYNTHES : DEPUY 74 / / Screw Matrx 7.0x50mm - [id number] Implanted:Qty: 2 on 02/15/2022 by Ba Napoles MD at OR [facility] N/A: Spine Lumbar JNJ : [employer] 9750 / / Cap Locking W/O Saddle Matrix - [id number] Implanted:Qty: 6 on 02/15/2022 by Ba Napoles MD at OR [facility] N/A: Spine Lumbar SYNTHES : DEPUY 099 / / Head Poly Top Load Matrix - [id number] Implanted:Qty: 6 on 02/15/2022 by Ba Napoles MD at OR [facility] N/A: Spine Lumbar SYNTHES : DEPUY 001 / / Pre Lordosed Anastacio W Line 75mm - [id number] Implanted:Qty: 2 on 02/15/2022 by Ba Napoles MD at OR [facility] N/A: Spine Lumbar JNJ : [facility] [id number] / / documented as of this encounter [...] Russo Sr. Father Emergency Contact Care Teams Facility Practice Specialist Relationship Specialty Start Date End Date Aixa Booth PA-C [address] [phone] PCP - General Physician Personal Lines Account Executive 12/10/23 documented as of this encounter
--- OUTSIDE RECORDS SUMMARY | 2024-06-02 06:23 | External Medical Summary ---
Author Name Unknown Address Unknown Organization [id number]:[facility]ATORY [facility] [place] - [address] [place] [address] Laboratory Report Ordering Provider Test Date Status CHANDNI BEASLEY 03/23/2024 09:46:27 Final Observation Date Value Abnormality Reference (Units ) Status TSH 03/23/2024 09:46:27 1.14 0.27-4.20 (uIU/mL) Final Performing Location [facility] - [address] [place] [address]
--- OUTSIDE RECORDS SUMMARY | 2024-06-02 06:23 | External Medical Summary ---
Author Name Unknown Address Unknown Organization K01:[facility] - [address] [place] [address] Laboratory Report Ordering Provider Test Date Status SIDNEY BEASLEYD 03/23/2024 09:46:27 Final Observation Date Value Abnormality Reference (Units ) Status Triglyceride 03/23/2024 09:46:27 47 <=174 ( mg/dL) Final Triglyceride Reference Range s (mg/dL):
<150 Acceptable
150-174 Borderline high
175-499 High
>=500 Very high Cholesterol 03/23/2024 09:46:27 200 Above high normal <200 (mg/dL) Final Total Cholesterol Reference Ranges (mg/dL):
<200 Desirable
200-239 Borderline high
>=240 High HDL 03/23/2024 09:46:27 127 >39 (mg/dL ) Final HDL Cholesterol Reference Ra nges (mg/dL):
>=60 High (Desirable)
<50 Low (Undesirable) For Females
<40 Low (Undesirable) For Males NON-HDL CHOLESTEROL 03/23/2024 09:46:27 73 <=159 (mg/dL) Final Non-HDL Cholesterol Referenc e Range (mg/dL):
<100 Target level for high risk ASCVD patient
<130 Optimal for general population
130-159 Near optimal for general population
160-189 Borderline High
190-219 High
>=220 Very High LDL, (calculated) 03/23/2024 09:46:27 64 <= 129 (mg/dL) Final LDL Cholesterol Reference Ra nges (mg/dL):
<70 Target level for high risk ASCVD patient
<100 Optimal for general population
100-129 Near optimal for general population
130-159 Borderline high
160-189 High
>=190 Very high Performing Location LAB[facility]ATORY [facility] - [address] [place] [address]
--- OUTSIDE RECORDS SUMMARY | 2024-06-02 06:23 | External Medical Summary ---
Author Name Unknown Address Unknown Organization K01:[facility] - [address] [place] [address] Laboratory Report Ordering Provider Test Date Status CHANDNI BEASLEY 03/23/2024 09:46:27 Final Observation Date Value Abnormality Reference (Units ) Status BUN 03/23/2024 09:46:27 15 6-20 (mg/dL) Final Creatinine 03/23/2024 09:46:27 1.2 0.6-1.2 (mg/dL) Final Glomerular filtration rate/1.73 sq M.predicted [Volume Rate/Area] in Serum, Plasma or Blood by Creatinine-based formula (CKD-EPI) 03/23/2024 09:46:27 74 >=60 (mL/min) Final eGFR is calculated based on the CKD-EPI 2020 equation. Sodium 03/23/2024 09:46:27 139 135-146 (m mol/L) Final Potassium 03/23/2024 09:46:27 4.3 3.5-5.1 (m mol/L) Final Cl 03/23/2024 09:46:27 102 98-107 (mm ol/L) Final CO2 03/23/2024 09:46:27 26 22-32 (mmo l/L) Final Anion gap 03/23/2024 09:46:27 11 7-15 (mmol /L) Final Glucose 03/23/2024 09:46:27 149 Above high normal 70 -120 (mg/dL) Final Albumin 03/23/2024 09:46:27 4.5 3.8-5.0 (g /dL) Final AST (Aspartate aminotransferase) 03/23/2024 09:46:27 34 10-50 (U/L) Fin al Alk Phos 03/23/2024 09:46:27 81 35-130 (U/ L) Final Bilirubin, Total 03/23/2024 09:46:27 0.5 <=1 .2 (mg/dL) Final Calcium 03/23/2024 09:46:27 9.5 8.4-10.2 ( mg/dL) Final Protein 03/23/2024 09:46:27 7.0 6.0-8.3 (g /dL) Final ALT (Alanine aminotransferase) 03/23/2024 09:46:27 32 10-50 (U/L) Marc fontana Performing Location LABORATORY [facility] - [address] [facility] [address]
--- OUTSIDE RECORDS SUMMARY | 2024-06-02 06:23 | External Medical Summary | Summary of Care ---
Author Name Unknown Organization [facility] Address [address] [facility] [place] [address] Phone [phone] Care Team Providers Care Stave Planer Tender Name Role Phone Aixa Booth PA-C Primary Care Provider [phone] Reason for Visit * Reason Onset Date Comments Medication Refill 10/30/202310/29 Encounter Details Date Type Department Care Team (Late st Contact Info) Description 10/30/2023 Telephone [facility] [address] [place] [phone] Edgar Cardona MD [address] [place] [id number] Medication Refill (10/29) Allergies Active Allergy Reactions Criticality Noted Date Comments Yellow Jacket Venom 07/31/2010 documented as of this encounter (statuses as of 01/29/2024) Medications OneTouch Verio In Vitro Strip (Glucose Blood)Indications: Type 2 diabetes mellitus without complication, without long-term current use of insulin (HCC),Uncontrolled type 2 diabetes mellitus with hyperglycemia (HCC) Check BS once daily E11.9 100 Strip 1 2 Active OneTouch UltraSoft LancetsIndications :Type 2 diabetes mellitus without complication, without long-term current use of insulin (HCC),Uncontrolled type 2 diabetes mellitus with hyperglycemia (HCC) Check BS once daily E11.9 100 Each 1 2 Active glipiZIDE 5 MG Oral Tablet (Glucotrol)Indicat ions:Type 2 diabetes mellitus without complication, without long-term current use of insulin (HCC) Take 1 Tablet by mouth in the morning. 90 Tablet 3 4 Active metFORMIN HCl 500 MG Oral Tablet (Glucophage)Indica tions:Type 2 diabetes mellitus without complication, without long-term current use of insulin (HCC) Take 2 Tablets by mouth 2 times a day with morning and evening meals. 360 Tablet 3 4 Active Thiamine HCl 100 MG Oral Tablet (vitamin B-1)Indications:Hi story of alcohol use disorder Take 1 Tablet by mouth in the morning. 90 Tablet 3 4 Active hydrOXYzine HCl 50 MG Oral TabletIndications: OSMAN (generalized anxiety disorder),Current severe episode of major depressive 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, unspecified whether recurrent (HCC) Take 1 Tablet by mouth every 6 hours as needed for Anxiety. 40 Tablet 2 4 Active Naltrexone HCl 50 MG Oral Tablet (Revia)Indications :History of alcohol use disorder Take 1 Tablet by mouth in the morning. 90 Tablet 3 4 Active documented as of this encounter (statuses as of 01/29/2024) Active Problems Problem Noted Date Diagnosed Date TYRA (acute kidney injury) 12/19/2023 Chest pain 12/19/2023 Food insecurity 06/25/2022 Overview: Per [facility] Protocol Alcohol withdrawal syndrome with [...] (carpal tunnel syndrome) 05/27/2013 Overview (05/27/2013): EMG 2007 Esophageal reflux 01/04/2011 Depression with anxiety 01/04/2011 documented as of this encounter (statuses as of 01/29/2024) Resolved Problems Problem Noted Date Diagnosed Date [...] as of this encounter (statuses as of 01/29/2024) Immunizations Name Administration Dates Next Due Pneumococcal Conjugate Vacci ne, 20-valent ([id number]) 05/28/2022 Seasonal Influenza Vac., MDV , IM, [...] Used Date Smoking Tobacco: Never Smokeless Tobacco: Never Alcohol Use Standard Drinks/Week Comments Not Currently 0 (1 standard drink = 0.6 oz pur e alcohol) 6-8 cans beer per day PHQ-2 Answer Date Recorded PHQ Adult Total [...] hearing? Answer Date of Assessment Author No 12/14/2022 6:58 AM EDT Malorie Auguste RN * Are you blind or do you have serious difficulty seeing, even when wearing glasses? Answer Date of Assessment Author No 12/14/2022 6:58 AM EDT Malorie Auguste RN * Do you have serious difficulty walking or climbing stairs? (5 years old or older) Answer Date of Assessment Author Yes 12/14/2022 6:58 AM EDT Malorie Auguste RN * Do you have difficulty dressing or bathing? (5 years old or older) Answer Date of Assessment Author No 12/14/2022 6:58 AM EDT Malorie Auguste RN * Because of a physical, mental, or emotional condition, do you have difficulty doing errands alone such as visiting a doctor’s office or shopping? (15 years old or older) Answer Date of Assessment Author Yes 12/14/2022 6:58 AM EDT Malorie Auguste RN documented as of this encounter Mental Status * Because of a physical, mental, or emotional condition, do you have serious difficulty concentrating, remembering, or making decisions? (5 years old or older) Answer Entry Date Author No 12/14/2022 6:58 AM EDT Malorie Auguste RN documented in this encounter Miscellaneous Notes * Telephone Encounter - Sulema Harris LPN - 10/30/2023 10:51 AM EDT Left message for the patient to call the office at [phone], refills available on med, pt can call pharmacy to request refill * Telephone Encounter - Elias Light OSA - 10/30/2023 10:45 AM EDT Pt requesting med refill for Naltrexone HCl 50 MG Oral Tablet (Revia) [[id number]] (Order [id number]) Pharmacy [id number] [address] [place] Please call pt back. documented in this encounter Plan of Treatment Upcoming Encounters Date Type Department Care Team (Late st Contact Info) Description 03/17/2024 8:00 AM EST Office Visit Cardiology, [place] [address] [place] [phone] Leticia Shaw PA-C [address] [place] [phone] 06/01/2024 10:20 AM EDT Office Visit Family [facility], [place] [address] [place] [phone] Edgar Cardona MD [address] [place] [phone] Scheduled Procedures Name Priority Associated Diagnoses Date/Ti [...] (1 of 2) 11/01/2019 COVID-19 Vaccine ( - 2023- season) 2023 Influenza Vaccine (FLU shot) (#1) [...] this encounter Medical Devices Implanted Type Area Range Management Specialist Device Identifier Shelf Expiration Date Model / Serial / Lot Danyell Littlejohni 5 Dg, [id number] Implanted:Qty: 1 on 02/15/2022 by Ba Napoles MD [place] [facility] [place]age N/A: Spine Lumbar [employer] 10/25/2025 [id number] / / [id number] Screw 7x55mm Implanted:Qty: 2 on 02/15/2022 by Ba Napoles MD at [place] [facility] [place] Screw N/A: Spine Lumbar [employer] [id number] / / Vivigen Mis Delivery System Pre-Filled Cannula With Cellular Bone Matrix (Processed By [employer], Exclusively Distributed By [employer]) Implanted:Qty: 1 on 02/15/2022 by Ba Napoles MD at [place] [facility] [place] N/A: Spine Lumbar [facility] 01/05/2023 - / [id number] / [id number] Vivigen Mis Delivery System Pre-Filled Cannula With Cellular Bone Matrix (Processed By [employer], Exclusively Distributed By [employer]) Implanted:Qty: 1 on 02/15/2022 by Ba Napoles MD at [place] [facility] [place] N/A: Spine Lumbar [facility] 01/05/2023 - / [id number] / Concorde Proti 5 Dg Implanted:Qty: 1 on 02/15/2022 by Ba Napoles MD at [place] [facility] [place] N/A: Spine Lumbar [employer] 06/03/2024 [id number] / / [id number] Screw [id number] Thr Maxtrix - [id number] Implanted:Qty: 2 on 02/15/2022 by Ba Napoles MD at [place] [facility] [place] N/A: Spine Lumbar SYNTHES : DEPUY 74 / / Screw Matrx 7.0x50mm - [id number] Implanted:Qty: 2 on 02/15/2022 by Ba Napoles MD at [place] [facility] [place] N/A: Spine Lumbar JNJ : [employer] / / Cap Locking W/O Saddle Matrix - [id number] Implanted:Qty: 6 on 02/15/2022 by Ba Napoles MD at [place] [facility] [place] N/A: Spine Lumbar SYNTHES : DEPUY 9 / / Head Poly Top Load Matrix - [id number] Implanted:Qty: 6 on 02/15/2022 by Ba Napoles MD at [place] [facility] [place] N/A: Spine Lumbar SYNTHES : DEPUY / / Pre Lordosed Anastacio W Line 75mm - [id number] Implanted:Qty: 2 on 02/15/2022 by Ba Napoles MD at [place] [facility] [place] N/A: Spine Lumbar JNJ : DEPUY SPINE [id number] / / documented as of this encounter [...] Russo Sr. Father Emergency Contact Care Teams Stave Planer Tender Relationship Specialty Start Date End Date Aixa Booth PA-C [address] [place] [phone] PCP - General Physician Wax Molder 12/10/23 documented as of this encounter
--- OUTSIDE RECORDS SUMMARY | 2024-06-02 06:23 | External Medical Summary | Summary of Care ---
Author Name Unknown Organization [facility] Address [address] [facility] [place] [address] Phone [phone] Care Team Providers Care Propeller Layout Worker Name Role Phone Aixa Booth PA-C Primary Care Provider [phone] Reason for Visit * Reason Comments eRx-Medication Refill Encounter Details Date Type Department Care Team (Late st Contact Info) Description 01/14/2024 Refill [facility] [address] [place] [phone] Edgar Cardona MD [address] [facility] [place] [phone] Chronic back pain, unspecified back location, unspecified back pain laterality Allergies Active Allergy Reactions Criticality Noted Date Comments Yellow Jacket Venom 07/31/2010 documented as of this encounter (statuses as of 01/15/2024) Medications OneTouch Verio In Vitro Strip (Glucose [...] before bedtime. 90 Tablet 3 4 Active Additional Information Patient taking differently: 25 mgOralDaily(AM), Reported on 12/19/2023 Albuterol Sulfate HFA 108 (90 Base) MCG/ACT Inhalation Aerosol Solution Inhale 2 Puffs by mouth every 6 hours as needed for Shortness of Breath or Wheezing. 18 g 12/20/2023 1:18 PM EDT 4 024 Active documented as of this encounter (statuses as of 01/15/2024) Active Problems Problem Noted Date Diagnosed Date [...] as of this encounter (statuses as of 01/15/2024) Resolved Problems Problem Noted Date Diagnosed Date [...] as of this encounter (statuses as of 01/15/2024) Immunizations Name Administration Dates Next Due Pneumococcal Conjugate Vacci ne, 20-valent ([id number]) 05/28/2022 Seasonal Influenza Vac., MDV , IM, 0.5 mL (Fluzone) 11/30/2013,12/24/2012,12/25/2011(Deferr ed: Patient Refused) Seasonal Influenza, PF, 6 M & above, IM , (FluLaval or Fluzone) 12/16/2022(Deferred: Patient Refused) TDAP (age 10 and older)(Boostrix) 06/18/2022 TDAP, Age 7 and older, IM (Adacel) 12/25/2011(Jaquez: Patient Refused) documented as of this encounter [...] encounter Miscellaneous Notes * Telephone Encounter - Mandi Mcfarland RPh - 01/15/2024 6:22 AM EST Refused Prescriptions: Disp Refills Naproxen 500 MG Oral Tablet (Naprosyn) 60 Tab*2 Sig: TAKE 1 TABLET BY MOUTH 2 TIMES A DAY WITH MORNING AND EVENING MEALS NEEDEDRefused By: MANDI MCFARLAND for Refusal: Course of treatment complete documented in this encounter Plan of Treatment Upcoming Encounters Date Type Department Care Team (Late st Contact Info) Description 03/17/2024 8:00 AM EST Office Visit Cardiology, [place] [address] [place] [phone] Leticia Shaw PA-C [address] [place] [phone] 06/01/2024 10:20 AM EDT Office Visit Family [facility], [place] [address] [place] [phone] Edgar Cardona MD [address] [place] [phone] Scheduled Procedures Name Priority Associated Diagnoses Date/Ti [...] Vaccines (1 of 2) 11/01/2019 COVID-19 Vaccine (2023- season) 2023 Influenza Vaccine (FLU shot) (#1) [...] this encounter Medical Devices Implanted Type Area Monotype Caster Device Identifier Shelf Expiration Date Model / Serial / Lot Danyell Littlejohni 5 Dg, [id number] Implanted:Qty: 1 on 02/15/2022 by Ba Napoles MD at [place] [facility] [place] Cage N/A: Spine Lumbar [employer] 10/25/2025 [id number] / / [id number] Screw 7x55mm Implanted:Qty: 2 on 02/15/2022 by Ba Napoles MD at [place] [facility] [place] Screw N/A: Spine Lumbar [employer] [id number] / / Vivigen Mis Delivery System Pre-Filled Cannula With Cellular Bone Matrix (Processed By [employer], Exclusively Distributed By [employer]) Implanted:Qty: 1 on 02/15/2022 by Ba Napoles MD at [place] [facility] [place] N/A: Spine Lumbar [employer] 01/05/2023 - / [id number] / [id number] Vivigen Mis Delivery System Pre-Filled Cannula With Cellular Bone Matrix (Processed By [employer], Exclusively Distributed By [employer]) Implanted:Qty: 1 on 02/15/2022 by Ba Napoles MD at [place] [facility] [place] N/A: [facility] 01/05/2023 - / [id number] / [id number] Concorde Proti 5 Dg Implanted:Qty: 1 on 02/15/2022 by Ba Napoles MD at [place] [facility] [place] N/A: Spine Lumbar [employer] 06/03/2024 [id number] / / [id number] Screw [id number] Thr Maxtrix - [id number] Implanted:Qty: 2 on 02/15/2022 by Ba Napoles MD at [place] [facility] [place] N/A: Spine Lumbar SYNTHES : DEPUY 745 / / Screw Matrx 7.0x50mm - [id number] Implanted:Qty: 2 on 02/15/2022 by Ba Napoles MD at [place] [facility] [place] N/A: Spine Lumbar JNJ : [employer] 750 / / Cap Locking W/O Saddle Matrix - [id number] Implanted:Qty: 6 on 02/15/2022 by Ba Napoles MD at [place] [facility] [place] N/A: Spine Lumbar SYNTHES : DEPUY 63.099 / / Head Poly Top Load Matrix - [id number] Implanted:Qty: 6 on 02/15/2022 by Ba Napoles MD at [place] [facility] N/A: Spine Lumbar SYNTHES : DEPUY [id number] / / Pre Lordosed Anastacio W Line 75mm - [id number] Implanted:Qty: 2 on 02/15/2022 by Ba Napoles MD at [place] [facility] N/A: Spine Lumbar JNJ : LOBO SPINE [id number] / / documented as of this encounter Visit Diagnoses Diagnosis Chronic back pain, unspecified back location, unspecified back pain laterality documented in this encounter Advance Directives * [...] Russo Sr. Father Emergency Contact Care Teams Propeller Layout Worker Relationship Specialty Start Date End Date Aixa Booth PA-C [address] [place] [phone] PCP - General Physician Floor Renovator 12/10/23 documented as of this encounter
--- OUTSIDE RECORDS SUMMARY | 2024-06-02 06:23 | External Medical Summary | Summary of Care ---
Author Name Unknown Organization [facility] Address [address] [place] [address] Phone [phone] Care Team Providers Care Leaflet Or Newspaper Deliverer Name Role Phone Aixa Booth PA-C Primary Care Provider [phone] Reason for Visit * Reason Comments Outpatient Testing Encounter Details Date Type Department Care Team (Late st Contact Info) Description 03/23/2024 9:50 AM EST Laboratory Laboratory, [place] [address] [facility] [place] [address] [facility] [address] [place] [address] Type 2 diabetes mellitus without complication, without long-term current use of insulin ([facility]); HTN, goal below 130/80; Gastroesophageal reflux disease without esophagitis; Current use of proton pump inhibitor Allergies Active Allergy Reactions Criticality Noted Date [...] pain 12/19/2023 Food insecurity 06/25/2022 Overview: Per [facility] Protocol Alcohol withdrawal syndrome with [...] Next Due Pneumococcal Conjugate Vacci ne, 20-valent ([id number]) 05/28/2022 Seasonal Influenza Vac., MDV , IM, 0.5 mL (Fluzone) 11/30/2013,12/24/2012,12/25/2011(Deferr ed: Patient Refused) Seasonal Influenza, PF, 6 M & above, IM , (FluLaval or Fluzone) 12/16/2022(Deferred: Patient Refused) TDAP (age 10 and older)(Boostrix) 06/18/2022 TDAP, Age 7 and older, IM (Adacel) 12/25/2011(De juned: Patient Refused) documented as of this encounter [...] 6:41 PM [place] Josr Beyer RN * Are you blind [...] Josr Austin RN documented in this encounter Plan of Treatment Upcoming Encounters Date Type Department Care Team (Late st Contact Info) Description 04/07/2024 10:30 AM EST Office Visit Pharmacy, [place] [address] [place] [address] [facility] [address] [place] [address] 06/01/2024 10:20 AM EDT Office Visit Family [facility] [place] [address] [place] [phone] Edgar Cardona MD [address] [place] [address] 09/15/2024 8:30 AM EDT Hospital Encounter [facility], Endoscopy [address] [place] [phone] Manny Coker MD [address] [place] [address] 09/15/2024 8:30 AM EDT - 09/15/2024 9:30 AM EDT Surgery [facility], Endoscopy [address] [place] [phone] Manny Coker MD [address] [place] [address] COLONOSCOPY FLEXIBLE PROXIMAL DIAGNOSTIC Pending Results Name Type Priority Associated Diagnoses Date /Time COMPREHENSIVE METABOLIC PANEL Lab Routine Type 2 diabetes mellitus without complication, without long-term current use of insulin (HCC) HTN, goal below 130/80 03/23/2024 9:46 AM EST LIPID PANEL WITH DIRECT LDL IF TG IS HIGH Lab Routine Type 2 diabetes mellitus without complication, without long-term current use of insulin (HCC) HTN, goal below 130/80 03/23/2024 9:46 AM EST TSH WITH FREE T4 IF INDICATED Lab Routine Type 2 diabetes mellitus without complication, without long-term current use of insulin (HCC) HTN, goal below 130/80 03/23/2024 9:46 AM EST VITAMIN B12 Lab Routine Gastroesophageal reflux disease without esophagitis Current use of proton pump inhibitor 03/23/2024 9:46 AM EST Scheduled Procedures Name Priority Associated Diagnoses Date/Ti [...] this encounter Medical Devices Implanted Type Area Tile Conduit Layer Device Identifier Shelf Expiration Date Model / Serial / Lot Concorde Proti 5 Dg, [id number] Implanted:Qty: 1 on 02/15/2022 by Ba Napoles MD at OR [facility] Cage N/A: Spine Lumbar [employer] 10/25/2025 [id number] / / [id number] Screw 7x55mm Implanted:Qty: 2 on 02/15/2022 by Ba Napoles MD at OR [facility] Screw N/A: Spine Lumbar [employer] [id number] / / Vivigen Mis Delivery System Pre-Filled Cannula With Cellular Bone Matrix (Processed By [employer], Exclusively Distributed By [employer]) Implanted:Qty: 1 on 02/15/2022 by Ba Napoles MD at OR [facility] N/A: Spine Lumbar [employer] 01/05/2023 - / [id number] / [id number] Vivigen Mis Delivery System Pre-Filled Cannula With Cellular Bone Matrix (Processed By [employer], Exclusively Distributed By [employer]) Implanted:Qty: 1 on 02/15/2022 by Ba Napoles MD at OR [facility] N/A: Spine Lumbar [employer] 01/05/2023 - / [id number] / [id number] Tianae Proti 5 Dg Implanted:Qty: 1 on 02/15/2022 by Ba Napoles MD at OR [facility] N/A: Spine Lumbar [employer] 06/03/2024 [id number] / / [id number] Screw 7.7liz64uf Thr Maxtrix - [id number] Implanted:Qty: 2 on 02/15/2022 by Ba Napoles MD at OR [facility] N/A: Spine Lumbar SYNTHES : DEPUY 9745 / / Screw Matrx 7.0x50mm - [id number] Implanted:Qty: 2 on 02/15/2022 by Ba Napoles MD at OR [facility] N/A: Spine Lumbar JNJ : [employer] 750 / / Cap Locking W/O Saddle Matrix - [id number] Implanted:Qty: 6 on 02/15/2022 by Ba Napoles MD at OR [facility] N/A: Spine Lumbar SYNTHES : DEPUY 099 / / Head Poly Top Load Matrix - [id number] Implanted:Qty: 6 on 02/15/2022 by Ba Napoles MD at OR [facility] N/A: Spine Lumbar SYNTHES : DEPUY 001 / / Pre Lordosed Anastacio W Line 75mm - [id number] Implanted:Qty: 2 on 02/15/2022 by Ba Napoles MD at OR [facility] N/A: Spine Lumbar JNJ : [employer] [id number] / / documented as of this encounter Procedures Procedure Name Priority Date/Time Associated Diagnosis Comments HEMOGLOBIN A1C Routine 03/23/2024 9:46 AM EST Type 2 diabetes mellitus without complication, without long-term current use of insulin (HCC) CBC Routine 03/23/2024 9:46 AM EST Type 2 diabetes mellitus without complication, without long-term current use of insulin (HCC) HTN, goal below 130/80 documented in this encounter Results * (ABNORMAL) CBC (03/23/2024 9:46 AM EST) WBC 3.81(L) 4.00 - 10.80 K/uL 03/23/2024 5:21 PM EST [facility] RBC 4.39 4.50 - 5.25 M/uL 03/23/2024 5:21 PM EST [facility] HGB 13.8(L) 14.0 - 16.8 g/dL 03/23/2024 5:21 PM EST LABORATORY [facility] HCT 41.5 40.0 - 48.4 % 03/23/2024 5:21 PM EST LABORATORY [facility] MCV 94.5 82.0 - 99.5 fL 03/23/2024 5:21 PM EST LABORATORY [facility] MCH 31.4 27.0 - 34.0 pg 03/23/2024 5:21 PM EST LABORATORY [facility] MCHC 33.3 32.0 - 36.0 g/dL 03/23/2024 5:21 PM EST LABORATORY [facility] RDW 13.3 11.5 - 15.5 % 03/23/2024 5:21 PM EST LABORATORY [facility] PLT 232 140 - 400 K/uL 03/23/2024 5:21 PM EST LABORATORY [facility] MPV 9.9 6.6 - 11.1 fL 03/23/2024 5:21 PM EST LABORATORY [facility] nRBCs 0 <=0 /100 WBCs 03/23/2024 5:21 PM EST LABORATORY [facility] Blood Venous blood specimen / Unknown Venipuncture / Unknown 03/23/2024 9:46 AM EST 03/23/2024 9:46 AM EST Aixa Booth PA-C LAB BLOOD ORDERABLES Final Result LABORATORY [facility] [address] [place] [address] * (ABNORMAL) HEMOGLOBIN A1C (03/23/2024 9:46 AM EST) [facility] Hemoglobin A1C 6.7(H) 4.0 - 5.6 % 03/23/2024 6:23 PM EST LABORATORY [facility] Comment:The use of HbA1c to monitor glycemic status is based on normal hemoglobin and HbA composition. This test should not be used in patients with abnormal hemoglobin that affects the half life of the red blood cell or the in vivo glycation rates. Estimated Average Glucose 146(H) <126 mg/dL 03/23/2024 6:23 PM EST [facility] Blood Venous blood specimen / Unknown Venipuncture / Unknown 03/23/2024 9:46 AM EST 03/23/2024 9:46 AM EST Aixa Booth PA-C LAB BLOOD ORDERABLES Final Result LABORATORY [facility] [address] [place] [address] documented in this encounter Visit Diagnoses Diagnosis Type 2 diabetes mellitus without complication, without long-term current use of insulin (HCC) HTN, goal below 130/80 Unspecified essential hypertension Gastroesophageal reflux disease without esophagitis Esophageal reflux Current use of proton pump inhibitor 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, colon Hernandez [...] Russo Sr. Father Emergency Contact Care Teams Leaflet Or Newspaper Deliverer Relationship Specialty Start Date End Date Aixa Booth PA-C [address] [place] [address] PCP - General Physician Punching Machine Operator 12/10/23 documented as of this encounter
--- OUTSIDE RECORDS SUMMARY | 2024-06-02 06:24 | External Medical Summary ---
Author Name Unknown Address Unknown Organization [id number] [address] [place] [address] Laboratory Report Ordering Provider Test Date Status PRUDENCIO STOKES 12/20/2023 05:34:00 Final Observation Date Value Abnormality Reference (Units ) Status Magnesium 12/20/2023 05:34:00 1.9 1.5-2.6 (m g/dL) Final Performing Location [facility] [address] [place] [address]
--- OUTSIDE RECORDS SUMMARY | 2024-06-02 06:24 | External Medical Summary ---
Author Name Unknown Address Unknown Organization : Laboratory Report Ordering Provider Test Date Status ROSANA PLASENCIA 12/20/2023 11:17:05 Final Observation Date Value Abnormality Reference (Units ) Status Glucose Point of Care 12/20/2023 11:17:05 147 Above high normal 70-120 (mg/dL) Final Performing Location
--- OUTSIDE RECORDS SUMMARY | 2024-06-02 06:24 | External Medical Summary | Summary of Care ---
Author Name Unknown Organization [facility] Address [address] [place] [address] Phone [phone] Care Team Providers Care Hall Worker Name Role Phone Aixa Booth PA-C Primary Care Provider [phone] Reason for Visit * Reason Comments Chest Pain Arm Pain * Auth/Cert Specialty Diagnoses / Procedures Referred By Contac t Referred To Contact [facility] [address] [place] [address] Phone: [phone] Emergency Medicine [facility] [address] [place] [address] Referral ID Status Reason Start Date Expiration Date Visits Re quested Visits Authorized [id number] Encounter Details Date Type Department Care Team (Late st Contact Info) Description 12/19/2023 12:14 PM EDT - 12/20/2023 1:57 PM EDT Emergency 4B [facility] 4th Floor [address] [place] [address] Dionicio Elmore MD [address], [place] [id number] Sara Rodriguez MD [address] [place] [id number] Ren Bonilla MD [address] [place] [address] Hospitalist Services [place], [place] [id number] Renaldo Sims MD [address] [place], [place] [address]ist Services [place]DISON Kennedy [id number] Pt Handout (on AVS) Discharge Disposition: Home - Self Care Allergies Active Allergy Reactions Criticality Noted Date Comments Yellow Jacket Venom 07/31/2010 documented as of this encounter (statuses as of 12/21/2023) Medications Medication Sig Dispensed Refills Start Date End Date Status OneTouch Verio In Vitro Strip (Glucose Blood)Indications: [...] 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 40 Tablet 2 4 Active Naltrexone HCl 50 MG Oral Tablet (Revia)Indications :History of alcohol use disorder Take 1 Tablet by mouth in the morning. 90 Tablet 3 4 Active buPROPion HCl ER (XL) 300 MG Oral Tablet Extended Release 24 Hour (Wellbutrin XL)Indications:Dep ression with anxiety Take 1 Tablet by mouth in the morning. 90 Tablet 3 4 Active Citalopram Hydrobromide 40 MG Oral Tablet (CeleXA)Indication s:Depression with anxiety Take 1 Tablet by mouth in the morning. 90 Tablet 3 4 Active Folic Acid 1 MG Oral Tablet Take 1 Tablet by mouth in the morning. 90 Tablet 3 4 Active Omeprazole 40 MG Oral Capsule Delayed Release (PriLOSEC)Indicati ons:Gastroesophage al reflux disease without esophagitis Take 1 Capsule by mouth in the morning. 1 hour before the first meal of the day. 90 Capsule 3 4 Active Atorvastatin Calcium 10 MG Oral Tablet (Lipitor)Indicatio ns:Type 2 diabetes mellitus without complication, without long-term current use of insulin (HCC) Take 1 Tablet by mouth in the morning. 90 Tablet 3 4 Active Baclofen 10 MG Oral Tablet (Lioresal)Indicati ons:Lumbar radiculopathy Take 1 Tablet by mouth in the morning and 1 Tablet at noon and 1 Tablet before bedtime. 90 Tablet 5 4 Active Additional Information Patient taking differently:10 mg Oral TID(AM/NOON/HS),Takes PRN, Reported on 12/19/2023 Gabapentin 800 MG Oral Tablet (Neurontin)Indicat ions:Lumbar radiculopathy,Unco mplicated alcohol dependence (HCC) Take 1 Tablet by mouth in the morning and 1 Tablet at noon and 1 Tablet before bedtime. 270 Tablet 3 4 Active Additional Information Patient taking differently:800 mg Oral TID(AM/NOON/HS),Taking PRN, Reported on 12/19/2023 Metoprolol Tartrate 25 MG Oral Tablet (Lopressor)Indicat ions:HTN, goal below 130/80 Take 0.5 Tablets by mouth in the morning and 0.5 Tablets before bedtime. 90 Tablet 3 4 Active Additional Information Patient taking differently: 25 mgOralDaily(AM), Reported on 12/19/2023 Albuterol Sulfate HFA 108 (90 Base) MCG/ACT Inhalation Aerosol Solution Inhale 2 Puffs by mouth every 6 hours as needed for Shortness of Breath or Wheezing. 18 g 11/01/202 4 01/19/20 24 Active Lisinopril 40 MG Oral TabletIndications: HTN, goal below 130/80 Take 1 Tablet by mouth in the morning. 90 Tablet 3 4 12/20/19 24 Discontinued Naproxen 500 MG Oral Tablet (Naprosyn)Indicati ons:Chronic back pain, unspecified back location, unspecified back pain laterality Take 1 Tablet by mouth 2 times a day with morning and evening meals. As needed. 60 Tablet 2 4 12/20/19 24 Discontinued documented as of this encounter (statuses as of 12/21/2023) Active Problems Problem Noted Date Diagnosed Date TYRA (acute kidney injury) 12/19/2023 Chest pain 12/19/2023 Food insecurity 06/25/2022 Overview: Per [facility] Protocol Alcohol withdrawal syndrome with complication Uncomplicated alcohol dependence 10/19/2021 Tremulousness 2019 Alcohol abuse 2019 Type 2 diabetes mellitus without complication Psychophysiological insomnia 01/07/2019 HTN, goal below 130/80 06/09/2018 Allergy to yellow jackets 04/30/2016 Overview: ANAPHYLAXIS Pizarro's esophagus 03/23/2014 Lumbar radiculopathy 05/27/2013 Overview: LE and UE EMG 2006- acute denervation in L4 root supplied muscles. Herniated cervical disc 05/27/2013 Overview: X 3 Lumbar disc herniation 05/27/2013 Overview: X 3 CTS (carpal tunnel syndrome) 05/27/2013 Overview: EMG 2006 Esophageal reflux 01/04/2011 Depression with anxiety 01/04/2011 documented as of this encounter (statuses as of 12/21/2023) Resolved Problems Problem Noted Date Diagnosed Date [...] as of this encounter (statuses as of 12/21/2023) Immunizations Name Administration Dates Next Due Pneumococcal Conjugate Vacci ne, 20-valent ([id number]) 05/28/2022 Seasonal Influenza Vac., MDV , IM, [...] Never Smokeless Tobacco: Former Tobacco Cessation:Counseling Given: Not Answered Alcohol Use Standard Drinks/Week Comments Not Currently [...] Sign Reading Time Taken Comments Blood Pressure 127/72 12/20/2023 11:15 AM EDT Pulse 67 12/20/2023 11:15 AM EDT Temperature 36.1 °C (97 °F) 12/20/2023 11: 15 AM EDT Respiratory Rate 18 12/20/2023 11:1 5 AM EDT Oxygen Saturation 97% 12/20/2023 11: 15 AM EDT Inhaled Oxygen Concentration - - Weight 94.3 kg (207 lb 12.8 oz) 12/20/2023 5:53 AM EDT Height 175.3 cm (5' 9") 12/19/2023 6:36 PM EDT Body Mass Index 30.69 12/19/2023 6:36 PM EDT documented in this encounter Functional Status Functional Status Response [...] (15 years old or older) No 12/19/19 24 Cognitive Status Response Date of Assessm ent Because of a physical, menta l, or emotional condition, do you have serious difficulty concentrating, remembering, or making decisions? (5 years old or older) No 12/19/2023 documented as of this encounter Discharge Summaries * Renaldo Sims MD - 12/20/2023 1:57 PM EDT Images from the original note were not included. [address] [address] Admission Date: 12/19/2023 Discharge Date: 12/20/2023 RECOMMENDED TO DO FOR NEXT PROVIDER(S): PCP follow-up Reassess BP off lisinopril Outpatient Cardiology follow-up in 2-4 weeks Repeat BMP in 1 week REASON(S) FOR MEDICATION CHANGE(S): Stp taking Lisinopril 20 mg Stop taking Naproxen 500 mg DISPOSITION ON DISCHARGE: Home - Self Carehome Active Hospital Problems Diagnosis *Principal Diagnosis - Chest pain TYRA (acute kidney injury) (HCC) Type 2 diabetes mellitus without complication (HCC) HTN, goal below 130/80 Pizarro's esophagus Resolved Hospital Problems No resolved problems to display. ADMISSION HISTORY & PHYSICAL EXAM (focused): Patient with PMHX: hx of alcohol abuse (sober x 3 months), HTN/HLD, DM2, Pizarro's esophagus, CTS, lumbar radiculopathy, daily marijuana use, and as listed who presents to [facility] for chest pain associated with BUCK, LH, and near syncope. Reports he was shoveling dirt and became SOB, had left chest pain pain into his back, left hand felt heavy and numb, and thought he was going to pass out. He has been having BUCK x 3 weeks. He needs to sit down and rest. Today, was the first he experienced chest pain. He denies cardiac hx. No family cardiac hx. Stop drinking ETOH 3 months ago. Smokes marijuana daily. No tobacco use. Denies cough/cold sx, palpitations, abdominal pain, N/V/D, leg swelling. In the ED, workup remarkable TYRA. Trop 15---13---12. Ele[address] Ddimer. CT PE- negative for PE. ED provider spoke with Cardiology who advised admission for ACS workup. Patient admitted to Hospital Medicine for further evaluation and management. Physical Exam Most Recent Vital Signs: BP: 101 mmHg/65 mmHg (12/19/23 1800) Pulse: 53 (12/19/23 1800) Resp: 20 (12/19/23 1800) Temp: 36 C (12/19/23 1216) Temp Summary: Temp Min: 36 °C (96.8 °F) Max: 36 °C (96.8 °F) SpO2: 96 % (12/19/23 1800) O2 flow rate: Supplemental O2 Delivery: Room Air, None (12/19/23 1600) General: Pt in bed, alert, anxious Head: Normocephalic, No masses, lesions, tenderness or abnormalities Eye Exam:EOMI, Conjunctiva are pink and non-injected, sclera clear Ears: External ears normal Oropharynx: mucous membranes moist without erythema or exudates Heart: regular rate & rhythm and no murmur appreciated Lungs: no respiratory distress, CTA, without wheeze, rhonchi or crackles Abdomen: + BS, soft, nontender, nondistended, no rebound tenderness or guarding Lower Extremities: without pitting edema, no calf tenderness, no stasis changes noted HOSPITAL COURSE (focused): Fernandez Russo, 53 yo M, hx of alcohol abuse (sober x 3 months), HTN/HLD, DM2, Pizarro's esophagus, CTS, lumbar radiculopathy, daily marijuana use, who presented to [facility] ED for Chest pain. Evaluated andED workup remarkable for TYRA. (1.1 baseline, up 1.5 down trending 1.4 at discharge). EKG, Troponin's, D-dimer, CT PE, dobutamine stress echo all are unremarkable for acute ischemic cardiac changes. Being managed for Chest pain with TYRA. TYRA improved during admission Pt stable, ACS ruled out and stable for discharge. PHYSICAL EXAMINATION: Most Recent Vital Signs: Temp: [36.1 °C (97 °F)-37 °C (98.6 °F)] 36.1 °C (97 °F) Pulse: [47-67] 67 BP: (103-127)/(54-72) 127/72 Resp: [16-18] 18 SpO2: [96 %-97 %] 97 % Physical Exam Constitutional: General: He is not in acute distress. Appearance: Normal appearance. He is normal weight. He is not ill-appearing. HENT: Head: Normocephalic. Eyes: Pupils: Pupils are equal, round, and reactive to light. Cardiovascular: Rate and Rhythm: Normal rate and regular rhythm. Pulses: Normal pulses. Heart sounds: Normal heart sounds. No murmur heard. No friction rub. No gallop. Pulmonary: Effort: Pulmonary effort is normal. Breath sounds: Normal breath sounds. No wheezing, rhonchi or rales. Abdominal: General: Bowel sounds are normal. There is no distension. Palpations: Abdomen is soft. Musculoskeletal: General: Normal range of motion. Right lower leg: No edema. Left lower leg: No edema. Skin: General: Skin is warm and dry. Coloration: Skin is not pale. Neurological: General: No focal deficit present. Mental Status: He is alert and oriented to person, place, and time. Psychiatric: Mood and Affect: Mood normal. Judgment: Judgment normal. Operations & Procedures: none Complications: none significant Significant Lab and Imaging Results: Results for orders placed or performed during the hospital encounter of 12/19/23 COMPREHENSIVE METABOLIC PANEL Result Value Ref Range BUN 16 6 - 20 mg/dL CREATININE 1.5 (H) 0.6 - 1.2 mg/dL EGFR 56 (L) >=60 mL/min SODIUM 136 135 - 146 mmol/L POTASSIUM 4.3 3.5 - 5.1 mmol/L CHLORIDE 100 98 - 107 mmol/L CO2 19 (L) 22 - 32 mmol/L ANION GAP 17 (H) 7 - 15 mmol/L GLUCOSE 91 70 - 120 mg/dL Albumin 4.5 3.8 - 5.0 g/dL AST 32 10 - 50 U/L Alkaline Phosphatase 85 35 - 130 U/L Bilirubin, Total 0.5 <=1.2 mg/dL CALCIUM 9.9 8.4 - 10.2 mg/dL Protein 7.9 6.0 - 8.3 g/dL ALT 22 10 - 50 U/L TROPONIN T, HIGH SENSITIVITY Result Value Ref Range Troponin T, High Sensitivity 15 <=22 ng/L TROPONIN T, HIGH SENSITIVITY Result Value Ref Range Troponin T, High Sensitivity 13 <=22 ng/L CBC Result Value Ref Range WBC 5.13 4.00 - 10.80 K/uL RBC 4.48 4.50 - 5.25 M/uL HGB 13.9 (L) 14.0 - 16.8 g/dL HCT 41.5 40.0 - 48.4 % MCV 92.6 82.0 - 99.5 fL MCH 31.0 27.0 - 34.0 pg MCHC 33.5 32.0 - 36.0 g/dL RDW 12.9 11.5 - 15.5 % PLT 255 140 - 400 K/uL MPV 10.1 6.6 - 11.1 fL nRBCs 0 <=0 /100 WBCs DIFFERENTIAL, AUTOMATED Result Value Ref Range WBC 5.13 4.00 - 10.80 K/uL Neutrophils % 41.9 40.0 - 75.0 % Lymphocytes % 33.7 18.0 - 42.0 % Monocytes % 17.7 (H) 1.0 - 11.0 % Eosinophils % 4.9 0.0 - 6.0 % Basophils % 1.6 0.0 - 2.0 % Immature Granulocytes % 0.2 0.0 - 2.0 % Absolute Neutrophils 2.15 1.80 - 7.70 K/uL Absolute Lymphocytes 1.73 1.00 - 4.80 K/ul Absolute Monocytes 0.91 0.00 - 1.10 K/uL Absolute Eosinophils 0.25 0.00 - 0.70 K/uL Absolute Basophils 0.08 0.00 - 0.20 K/uL Absolute Immature Granulocytes 0.01 0.00 - 0.20 K/uL TROPONIN T, HIGH SENSITIVITY Result Value Ref Range Troponin T, High Sensitivity 12 <=22 ng/L LIPASE Result Value Ref Range Lipase 38 13 - 60 U/L D-DIMER Result Value Ref Range D-Dimer 0.78 (H) <0.50 ug/mL FEU BNP, NT-PRO Result Value Ref Range BNP, NT-Pro 119 <300 pg/mL HEMOGLOBIN A1C Result Value Ref Range Hemoglobin A1C 6.1 (H) 4.0 - 5.6 % Estimated Average Glucose 128 (H) <126 mg/dL LIPID PANEL WITH DIRECT LDL IF TG IS HIGH Result Value Ref Range Triglycerides 51 <=174 mg/dL Cholesterol 122 <200 mg/dL HDL Cholesterol 74 >39 mg/dL Non-HDL Cholesterol 48 <=159 mg/dL LDL Cholesterol 38 <=129 mg/dL URINALYSIS, REFLEX TO CULTURE (CUP ONLY) Result Value Ref Range Urinalysis, Reflex to Culture Specimen Specimen collected and received URINALYSIS, REFLEX TO CULTURE Result Value Ref Range Color, Urine Yellow Light Yellow, Yellow, Dark Yellow Clarity, Urine Clear Clear Glucose, Urine Negative Negative mg/dL Bilirubin, Urine Negative Negative Ketone, Urine Negative Negative mg/dL Specific [place], Urine 1.014 1.003 - 1.030 Blood, Urine Negative Negative pH, Urine 5.5 5.0 - 7.5 Units Protein, Urine Negative Negative mg/dL Urobilinogen, Urine 0.2 0.2, 1.0 mg/dL Nitrite, Urine Negative Negative Esterase, Urine Negative Negative RBC, Urine 0-2 0 - 2 /HPF WBC, Urine 0-2 0 - 2 /HPF Bacteria, Urine 0-25 0 - 25 /HPF Culture, Urine CBC Result Value Ref Range WBC 3.51 (L) 4.00 - 10.80 K/uL RBC 3.70 4.50 - 5.25 M/uL HGB 11.8 (L) 14.0 - 16.8 g/dL HCT 34.9 (L) 40.0 - 48.4 % MCV 94.3 82.0 - 99.5 fL MCH 31.9 27.0 - 34.0 pg MCHC 33.8 32.0 - 36.0 g/dL RDW 13.0 11.5 - 15.5 % PLT 183 140 - 400 K/uL MPV 9.9 6.6 - 11.1 fL nRBCs 0 <=0 /100 WBCs MAGNESIUM Result Value Ref Range Magnesium 1.9 1.5 - 2.6 mg/dL BASIC METABOLIC PANEL Result Value Ref Range BUN 13 6 - 20 mg/dL CREATININE 1.4 (H) 0.6 - 1.2 mg/dL EGFR 62 >=60 mL/min SODIUM 141 135 - 146 mmol/L POTASSIUM 4.7 3.5 - 5.1 mmol/L CHLORIDE 107 98 - 107 mmol/L CO2 24 22 - 32 mmol/L ANION GAP 10 7 - 15 mmol/L GLUCOSE 118 70 - 120 mg/dL CALCIUM 9.2 8.4 - 10.2 mg/dL ECHO, STRESS (DOBUTAMINE) W/ PHYSICIAN Result Value Ref Range LEFT VENTRICULAR EJECTION FRACTION 60 % GLUCOSE METER, POINT OF CARE Result Value Ref Range GLUCOSE - POCT 100 70 - 120 mg/dL GLUCOSE METER, POINT OF CARE Result Value Ref Range GLUCOSE - POCT 131 (H) 70 - 120 mg/dL GLUCOSE METER, POINT OF CARE Result Value Ref Range GLUCOSE - POCT 147 (H) 70 - 120 mg/dL CT PULMONARY EMBOLUS W CONTRAST Final Result PROCEDURE INFORMATION: Exam: CTA Chest With Contrast Exam date and time: 12/19/2023 4:22 PM Age: 53 years old Clinical indication: Other: Elevated ddimer TECHNIQUE: Imaging protocol: Computed tomographic angiography of the chest with contrast. Exam focused on the arteries. 3D rendering (Not supervised by radiologist): MIP and/or 3D reconstructed images were created by the technologist. Radiation optimization: All CT scans at this facility use at least one of these dose optimization techniques: automated exposure control; mA and/or kV adjustment per patient size (includes targeted exams where dose is matched to clinical indication); or iterative reconstruction. Contrast material: ISO 370; Contrast volume: 100 ml; Contrast route: INTRAVENOUS (IV); COMPARISON: CTA CHEST/ABDOMEN/PELVIS 12/14/2022 3:21 AM FINDINGS: Pulmonary arteries: No acute pulmonary embolus. Aorta: There is no acute abnormality of the thoracic aorta. Celiac trunk and mesenteric arteries: The celiac axis and superior mesenteric artery are patent without significant proximal stenosis. Lungs: There are no areas of dense parenchymal consolidation. Pleural spaces: No pleural effusions. Heart: RV/LV ratio is 0.9 (normal <1). No intraventricular septal bowing or hepatic reflux of contrast. Coronary arteries: No coronary artery calcification. Lymph nodes: No mediastinal or hilar adenopathy. Gallbladder and biliary ducts: There has been a cholecystectomy. Bones/joints: Unremarkable. No acute fracture. Soft tissues: Unremarkable. IMPRESSION IMPRESSION: 1. No acute pulmonary embolus. 2. No pneumonia or congestive heart failure. THIS DOCUMENT HAS BEEN ELECTRONICALLY SIGNED BY SARAH HODGSON MD XR CHEST 1 VIEW Final Result PROCEDURE INFORMATION: Exam: XR Chest Exam date and time: 12/19/2023 12:29 PM Age: 53 years old Clinical indication: Other: Lue and chest pressure, SOB, diaphoresis TECHNIQUE: Imaging protocol: Radiologic exam of the chest. Views: 1 view. COMPARISON: CTA CHEST/ABDOMEN/PELVIS 12/14/2022 3:21 AM FINDINGS: Tubes, catheters and devices: Cardiac monitoring electrodes are seen Lungs: There is no interstitial edema. There is no consolidation Pleural spaces: There is no pleural effusion Heart/Mediastinum: The heart is not enlarged Bones/joints: There is degenerative change in the spine. IMPRESSION IMPRESSION: No acute abnormality THIS DOCUMENT HAS BEEN ELECTRONICALLY SIGNED BY ADDY REARDON MD MEDICATION UPDATES AT DISCHARGE START taking these medications INSTRUCTIONS albuterol HFA 108 (90 BASE) MCG/ACT inhaler Inhale 2 Puffs by mouth every 6 hours as needed for Shortness of Breath or Wheezing. CONTINUE taking these medications INSTRUCTIONS atorvaSTATin 10 MG Tablet Commonly known as: Lipitor Take 1 Tablet by mouth in the morning. Baclofen 10 MG Tablet Commonly known as: Lioresal Take 1 Tablet by mouth in the morning and 1 Tablet at noon and 1 Tablet before bedtime. buPROPion XL 300 MG Tb24 Commonly known as: Wellbutrin XL Take 1 Tablet by mouth in the morning. citalopram 40 MG Tablet Commonly known as: CeleXA Take 1 Tablet by mouth in the morning. folic acid 1 MG Tablet Take 1 Tablet by mouth in the morning. Gabapentin 800 MG Tablet Commonly known as: Neurontin Take 1 Tablet by mouth in the morning and 1 Tablet at noon and 1 Tablet before bedtime. glipiZIDE 5 MG Tablet Commonly known as: Glucotrol Take 1 Tablet by mouth in the morning. hydrOXYzine HCl 50 MG Tablet Take 1 Tablet by mouth every 6 hours as needed for Anxiety. metFORMIN 500 MG Tablet Commonly known as: Glucophage Take 2 Tablets by mouth 2 times a day with morning and evening meals. Metoprolol Tartrate 25 MG Tablet Commonly known as: Lopressor Take 0.5 Tablets by mouth in the morning and 0.5 Tablets before bedtime. naltrexone 50 MG Tablet Commonly known as: Revia Take 1 Tablet by mouth in the morning. omeprazole 40 MG Cpdr Commonly known as: PriLOSEC Take 1 Capsule by mouth in the morning. 1 hour before the first meal of the day. OneTouch UltraSoft Lancets Misc Check BS once daily E11.9 OneTouch Verio Strp Generic drug: Glucose Blood Check BS once daily E11.9 THIAMINE 100 MG Tablet Commonly known as: vitamin B-1 Take 1 Tablet by mouth in the morning. STOP taking these medications Lisinopril 40 MG Tablet Naproxen 500 MG Tablet Commonly known as: Naprosyn SCHEDULED FOLLOW-UP: Future Appointments Appt Date/Time Provider Department 12/24/2023 9:00 AM Joey Barnes MD [facility] 03/17/2024 8:00 AM Leticia Shaw [facility] 06/01/2024 10:20 AM Edgar Cardona MD [facility] Other Information Indwelling Devices: LINES None Vital Signs (last recorded): Most Recent Systolic BP: 127 mmHg (12/20/231114) Most Recent Diastolic BP: 72 mmHg (12/20/23 111) Pulse: 67 (12/20/23 111) Resp: 18 (12/20/23 111) Most Recent Temperature: 36.11 C (12/20/23 111) Weight: 94.3 kg (207 lb 12.8 oz) (12/20/23 0553) SpO2: 97 % (12/20/23 111) Allergies: Yellow jacket venom Activity: as tolerated Diet: age appropriate diet and cardiac diet Code Status: Prior Condition on Discharge: stable Isolation status: None Cognition: normal HOSPITAL CONSULTS ORDERED: CARDIOLOGY CONSULT IP REFERRING PHYSICIAN: REF: SELF NO STRE[address] ADDRESS AVAILABLE PRIMARY CARE PROVIDER: PCP: Aixa Booth PA-C [address] [place] [address] / [place] [phone] (office) [phone] (fax) Note: To contact a physician responsible for this patient’s hospital care, please call [employer] [phone]. ATTENDING ATTESTATION I saw and evaluated the patient today. I have reviewed the resident/fellow physician note and agree. I spent a total of 45 minutes coordinating, documenting, and providing care for this patient excluding time spent in the performance of separately billed services or time spent by another provider/QHP. Renaldo Sims MD documented in this encounter Discharge Instructions * Discharge Instr - AVS* Renaldo Sims MD - 12/20/2023 12:41 PM EDT Discharge Date: 12/20/2023 The information below provides you with the instructions and the list of medications you need to betaking following discharge from the hospital. If you have any questions, please ask before leaving. If you have questions after leaving, you can reach us at the numbers below. YOUR HOSPITAL PROVIDERS: Discharging Provider: Renaldo Sims MD Provider Department: Hospital Medicine To reach this Provider Saturday through Saturday (8:00 AM to 4:30 PM) for any questions or test results: Call [phone] For after-hours concerns: Call [phone] and have your provider paged, or the provider button decorating machine operator for the Department of Hospital Medicine paged. Please note, the discharging provider will not be able to provide you with any medications refills.Please discuss these with your primary care provider. Worsening Symptoms: If you have new symptoms, or your symptoms get worse, please contact your Discharge Provider or Primary Care Provider (PCP). If these providers are not available, you can go to your local [facility] or Urgent Care Clinic during their business hours. In an EMERGENCY situation: Call [phone] or go to the nearest emergency room. A BRIEF SUMMARY OF YOUR HOSPITAL STAY: You came to the hospital with: chest pain Your main diagnosis at discharge was: chest pain, TYRA Operations & Procedures performed: stress test Complications: none significant Inpatient test results that are pending at discharge: none Advance Directive Documented: Advance Directive Does the Patient have an Advance Directive? No YOUR FOLLOW UP APPOINTMENTS: Primary Care Provider Information: PCP: Aixa Booth PA-C [address] / [place] [phone] (office) [phone] (fax) An appointment was requested with your PCP (Aixa Booth PA-C) within 7 days. (Please take this form to this visit with your primary care physician.) You need the following studies in the future: BMP: date - 1 week INSTRUCTIONS: Diet: Normal diet Activity: As tolerated Additional Instructions: - Call your primary care physician or seek medical attention if you experience worsening shortness of breath, chest pain, lightheadedness, dizziness. documented in this encounter Progress Notes * Jonas Olvieira, Medical Student - 12/20/2023 10:59 AM EDT Unless the attending has added an attestation supporting use of this note to document a billable service, the signature of the Licensed Professional on this note only acknowledges the presence of thestudent's note within the patient record and the Licensed Professional's note should be referred tofor clinical information and recommendations. PROGRESS NOTE - General Internal Medicine Service [address] [address] Name: Fernandez Russo Location: [facility] [id number] Date: 12/20/2023 Time: 11:00 AM SUBJECTIVE: 53yo male with history of EtOH abuse (sober x3 weeks) HTN, HLD, DM2, pizarro's, back pain, and marijuana abuse presented to the [facility] ED 12/19/23 for chest pain with exertion. He was shoveling dirt when he developed SOB, "tight" chest pain, near syncope, and left hand numbess/pain. He quickly went to EMS who brought him in. Chest pain resolved seemingly spontaneously shortly after ED arr ival. He reports SOB with exertion for the past 3 weeks. He denies any personal or family cardiac history to his knowledge. Denies other substance use. OBJECTIVE: Most Recent Vital Signs: BP: 120 mmHg/71 mmHg (12/20/23706) Pulse: 65 (12/20/23706) Resp: 18 (12/20/23706) Temp: 37 C (12/20/23706) Temp Summary: Temp Min: 36 °C (96.8 °F) Max: 37 °C (98.6 °F) SpO2: 97 % (12/20/23 0707) O2 flow rate: Supplemental O2 Delivery: Room Air, None (12/20/23 0849) Vital Signs Last 24 Hours: Systolic BP: Most Recent Systolic BP Av.2 mmHg Min: 99 mmHg Max: 120 mmHg Temperature: Most Recent Temperature Av.5 C Min: 36 C Max: 37 C Pulse: Pulse Av.5 Min: 50 Max: 65 Respirations: Resp Av.2 Min: 16 Max: 20 SpO2: SpO2 Av.5 % Min: 96 % Max: 100 % Physical Exam Constitutional: Appearance: He is well-developed. HENT: Head: Normocephalic and atraumatic. Cardiovascular: Rate and Rhythm: Normal rate and regular rhythm. Pulmonary: Effort: Pulmonary effort is normal. Chest: Chest wall: No deformity or tenderness. Musculoskeletal: Cervical back: Normal range of motion. Skin: General: Skin is warm and dry. Neurological: Mental Status: He is alert and oriented to person, place, and time. Psychiatric: Mood and Affect: Mood normal. Behavior: Behavior normal. LABS: Labs reviewed as indicated below: Lab results within last 7 days (see chart for full results) Units 12/20/23 0534 12/19/23 1225 SODIUM mmol/L 141 136 POTASSIUM mmol/L 4.7 4.3 CHLORIDE mmol/L 107 100 CO2 mmol/L 24 19* BUN mg/dL 13 16 CREATININE mg/dL 1.4* 1.5* Lab results within last 7 days (see chart for full results) Units 12/20/23 0534 12/19/23 1225 HGB g/dL 11.8* 13.9* HCT % 34.9* 41.5 WBC K/uL 3.51* 5.13 PLT K/uL 183 255 Lab results within last 7 days (see chart for full results) Units 12/20/23 0534 12/19/23 1225 HGB g/dL 11.8* 13.9* HCT % 34.9* 41.5 WBC K/uL 3.51* 5.13 PLT K/uL 183 255 Neutrophils % % -- 41.9 Monocytes % % -- 17.7* Eosinophils % % -- 4.9 Net IO Since Admission: -394.31 mL [12/20/23 1108] IMAGING: CT PULMONARY EMBOLUS W CONTRAST Result Date: 12/19/2023 IMPRESSION: 1. No acute pulmonary embolus. 2. No pneumonia or congestive heart failure. THIS DOCUMENT HAS BEEN ELECTRONICALLY SIGNED BY SARAH HODGSON MD XR CHEST 1 VIEW Result Date: 12/19/2023 IMPRESSION: No acute abnormality THIS DOCUMENT HAS BEEN ELECTRONICALLY SIGNED BY ADDY REARDON MD IMPRESSION and PLAN: Principal Problem: Chest pain (POA: Yes) Active Problems: Pizarro's esophagus (POA: Yes) HTN, goal below 130/80 (POA: Yes) Type 2 diabetes mellitus without complication (HCC) (POA: Yes) TYRA (acute kidney injury) (HCC) (POA: Yes) POA = Present On Admission On assessment, this is a 53yo male with hx of HTN and HLD who presents with chest pain in the setting of an TYRA. TYRA is evidenced by the >.3mg/dL rise in creatinine from baseline. At present, my concern for ACS is low due to resolving of symptoms, atypical presentation, 3 normal troponins, and negative hx. Awaiting results of stress test. Concern for PE is low due to negative CT and resolved SOB. Principle concerns are TYRA and ruling out cardiac cause. Plan Chest pain - cardiology consulted - stress test performed, awaiting results TYRA - Isolyte 100mL/hr - hold lisinopril HTN - Metoprolol 12.5mg po daily, adjust as needed Misc - SS insulin, hold seating captain DM2 meds - continue other seating captain meds I reviewed and saw the patient with my attending Dr. Sims. Jonas Oliveira, Medical Student documented in this encounter H&P Notes * Sharon Dempsey CRNP - 12/19/2023 5:38 PM EDT Images from the original note were not included. [facility] PRESENTING PROBLEM: chest pain HPI: Patient with PMHX: hx of alcohol abuse (sober x 3 months), HTN/HLD, DM2, Pizarro's esophagus, CTS, lumbar radiculopathy, daily marijuana use, and as listed who presents to [facility] for chest pain associated with BUCK, LH, and near syncope. Reports he was shoveling dirt and became SOB, had left chest pain pain into his back, left hand felt heavy and numb, and thought he was going to pass out. Hehas been having BUCK x 3 weeks. He needs to sit down and rest. Today, was the first he experienced chest pain. He denies cardiac hx. No family cardiac hx. Stop drinking ETOH 3 months ago. Smokes marijuana daily. No tobacco use. Denies cough/cold sx, palpitations, abdominal pain, N/V/D, leg swelling. In the ED, workup remarkable TYRA. Trop 15---13---12. Ele[address] Ddim[address]. [address] PE- negative for PE. ED provider spoke with Cardiology who advised admission for ACS workup. Patient admitted to Hospital Medicine for further evaluation and management. Subjective Patient's past history, medications, and allergies were reviewed. Objective Physical Exam Most Recent Vital Signs: BP: 101 mmHg/65 mmHg (12/19/23 1800) Pulse: 53 (12/19/23 1800) Resp: 20 (12/19/23 1800) Temp: 36 C (12/19/23 1216) Temp Summary: Temp Min: 36 °C (96.8 °F) Max: 36 °C (96.8 °F) SpO2: 96 % (12/19/23 1800) O2 flow rate: Supplemental O2 Delivery: Room Air, None (12/19/23 1600) General: Pt in bed, alert, anxious Head: Normocephalic, No masses, lesions, tenderness or abnormalities Eye Exam:EOMI, Conjunctiva are pink and non-injected, sclera clear Ears: External ears normal Oropharynx: mucous membranes moist without erythema or exudates Heart: regular rate & rhythm and no murmur appreciated Lungs: no respiratory distress, CTA, without wheeze, rhonchi or crackles Abdomen: + BS, soft, nontender, nondistended, no rebound tenderness or guarding Lower Extremities: without pitting edema, no calf tenderness, no stasis changes noted Peripheral Line Posterior;Right Wrist 20 Gauge (Active) Number of days: 0 STUDIES: Encounter Orders Labs and other studies reviewed with pertinent findings noted below: CT PULMONARY EMBOLUS W CONTRAST Final Result PROCEDURE INFORMATION: Exam: CTA Chest With Contrast Exam date and time: 12/19/2023 4:22 PM Age: 53 years old Clinical indication: Other: Elevated ddimer TECHNIQUE: Imaging protocol: Computed tomographic angiography of the chest with contrast. Exam focused on the arteries. 3D rendering (Not supervised by radiologist): MIP and/or 3D reconstructed images were created by the technologist. Radiation optimization: All CT scans at this facility use at least one of these dose optimization techniques: automated exposure control; mA and/or kV adjustment per patient size (includes targeted exams where dose is matched to clinical indication); or iterative reconstruction. Contrast material: ISO 370; Contrast volume: 100 ml; Contrast route: INTRAVENOUS (IV); COMPARISON: CTA CHEST/ABDOMEN/PELVIS 12/14/2022 3:21 AM FINDINGS: Pulmonary arteries: No acute pulmonary embolus. Aorta: There is no acute abnormality of the thoracic aorta. Celiac trunk and mesenteric arteries: The celiac axis and superior mesenteric artery are patent without significant proximal stenosis. Lungs: There are no areas of dense parenchymal consolidation. Pleural spaces: No pleural effusions. Heart: RV/LV ratio is 0.9 (normal <1). No intraventricular septal bowing or hepatic reflux of contrast. Coronary arteries: No coronary artery calcification. Lymph nodes: No mediastinal or hilar adenopathy. Gallbladder and biliary ducts: There has been a cholecystectomy. Bones/joints: Unremarkable. No acute fracture. Soft tissues: Unremarkable. IMPRESSION IMPRESSION: 1. No acute pulmonary embolus. 2. No pneumonia or congestive heart failure. THIS DOCUMENT HAS BEEN ELECTRONICALLY SIGNED BY SARAH HODGSON MD XR CHEST 1 VIEW Final Result PROCEDURE INFORMATION: Exam: XR Chest Exam date and time: 12/19/2023 12:29 PM Age: 53 years old Clinical indication: Other: Lue and chest pressure, SOB, diaphoresis TECHNIQUE: Imaging protocol: Radiologic exam of the chest. Views: 1 view. COMPARISON: CTA CHEST/ABDOMEN/PELVIS 12/14/2022 3:21 AM FINDINGS: Tubes, catheters and devices: Cardiac monitoring electrodes are seen Lungs: There is no interstitial edema. There is no consolidation Pleural spaces: There is no pleural effusion Heart/Mediastinum: The heart is not enlarged Bones/joints: There is degenerative change in the spine. IMPRESSION IMPRESSION: No acute abnormality THIS DOCUMENT HAS BEEN ELECTRONICALLY SIGNED BY ADDY REARDON MD Results for orders placed or performed during the hospital encounter of 12/19/23 COMPREHENSIVE METABOLIC PANEL Result Value Ref Range BUN 16 6 - 20 mg/dL CREATININE 1.5 (H) 0.6 - 1.2 mg/dL EGFR 56 (L) >=60 mL/min SODIUM 136 135 - 146 mmol/L POTASSIUM 4.3 3.5 - 5.1 mmol/L CHLORIDE 100 98 - 107 mmol/L CO2 19 (L) 22 - 32 mmol/L ANION GAP 17 (H) 7 - 15 mmol/L GLUCOSE 91 70 - 120 mg/dL Albumin 4.5 3.8 - 5.0 g/dL AST 32 10 - 50 U/L Alkaline Phosphatase 85 35 - 130 U/L Bilirubin, Total 0.5 <=1.2 mg/dL CALCIUM 9.9 8.4 - 10.2 mg/dL Protein 7.9 6.0 - 8.3 g/dL ALT 22 10 - 50 U/L TROPONIN T, HIGH SENSITIVITY Result Value Ref Range Troponin T, High Sensitivity 15 <=22 ng/L TROPONIN T, HIGH SENSITIVITY Result Value Ref Range Troponin T, High Sensitivity 13 <=22 ng/L CBC Result Value Ref Range WBC 5.13 4.00 - 10.80 K/uL RBC 4.48 4.50 - 5.25 M/uL HGB 13.9 (L) 14.0 - 16.8 g/dL HCT 41.5 40.0 - 48.4 % MCV 92.6 82.0 - 99.5 fL MCH 31.0 27.0 - 34.0 pg MCHC 33.5 32.0 - 36.0 g/dL RDW 12.9 11.5 - 15.5 % PLT 255 140 - 400 K/uL MPV 10.1 6.6 - 11.1 fL nRBCs 0 <=0 /100 WBCs DIFFERENTIAL, AUTOMATED Result Value Ref Range WBC 5.13 4.00 - 10.80 K/uL Neutrophils % 41.9 40.0 - 75.0 % Lymphocytes % 33.7 18.0 - 42.0 % Monocytes % 17.7 (H) 1.0 - 11.0 % Eosinophils % 4.9 0.0 - 6.0 % Basophils % 1.6 0.0 - 2.0 % Immature Granulocytes % 0.2 0.0 - 2.0 % Absolute Neutrophils 2.15 1.80 - 7.70 K/uL Absolute Lymphocytes 1.73 1.00 - 4.80 K/ul Absolute Monocytes 0.91 0.00 - 1.10 K/uL Absolute Eosinophils 0.25 0.00 - 0.70 K/uL Absolute Basophils 0.08 0.00 - 0.20 K/uL Absolute Immature Granulocytes 0.01 0.00 - 0.20 K/uL TROPONIN T, HIGH SENSITIVITY Result Value Ref Range Troponin T, High Sensitivity 12 <=22 ng/L LIPASE Result Value Ref Range Lipase 38 13 - 60 U/L D-DIMER Result Value Ref Range D-Dimer 0.78 (H) <0.50 ug/mL FEU BNP, NT-PRO Result Value Ref Range BNP, NT-Pro 119 <300 pg/mL EKG- SB, ventricular rate 59 bpm. Qtc 443 ECHO 12/14/2022 "Reason For Study: Chest pain unspecified type Interpretation Summary The qualitative LV ejection fraction is 60-64% (normal). The right ventricular cavity size is normal. The right ventricular systolic function is normal. No significant valvular disease" Assessment and Plan IMPRESSION/PLAN OF CARE: Principal Problem: Chest pain Active Problems: Pizarro's esophagus HTN, goal below 130/80 Type 2 diabetes mellitus without complication (HCC) TYRA (acute kidney injury) (HCC) Resolved Problems: * No resolved hospital problems. * Patient with PMHX: hx of alcohol abuse (sober x 3 months), HTN/HLD, DM2, Pizarro's esophagus, CTS, lumbar radiculopathy, daily marijuana use, and as listed who presents for chest pain associated withDOE, LH, and near syncope. Trop flat x 3. No significant EKG changes. Noted to have TYRA. Patient being admitted for chest pain rule out Cardiology consult Stress ECHO Lipid panel. HgA1c For TYRA, IV fluids. Monitor kidney function. He did receive IV contrast. 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 Utilize ISS. AC/HS and PRN glucose checks. HTN: Hold Lisinopril d/t TYRA. Reports he is taking Metoprolol 25 mg daily instead of 1/2 tab BID. SB rates 50's. SBP low 100's. Will make 12.5 mg daily with hold parameters. Adjust accordingly. 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 Hehas not been taking Naproxen. PHARMACOLOGIC VTE PROPHYLAXIS:Enoxaparin CODE STATUS: Full Code EXPECTED DISCHARGE DATE: 12/20/2023 I spent a total of 65 minutes coordinating, documenting, and providing care for this patient excluding time spent in the performance of separately billed services or time spent by another provider/QHP. Associated attestation - Ren Bonilla MD - 12/19/2023 6:48 PM EDT I have reviewed the advanced practitioner's documentation on the date of service referenced in note, and I agree with, and take responsibility for the plan of care. I spent a total of 15 minutes coordinating, documenting, and providing care for this patient excluding time spent in the performance of separately billed services or time spent by another provider/QHP. 53 yo M patient with DM, HTN, GERD, Smoker presented to the ER with chest pain - left sided, radiating to left arm, a/w numbness Labs significant for TYRA, normal troponin CTPE showed no PE Impression Atypical chest pain TYRA Plan: - IV fluids to help with TYRA - Dobutamine stress echo tomorrow - Cardiology consult - BP soft- hold lisinopril and lower metoprolol dosing documented in this encounter Consult Notes * Leticia Shaw PA-C - 12/20/2023 8:52 AM EDTAssociated Order(s): Cardiology Consult IP Cardiology CONSULT [facility] [place] [id number] Name: Fernandez Russo Location: [facility] [id number] Date: 12/20/2023 Time: 8:52 AM Cardiology Consult IP Consult performed by: Leticia Shaw PA-C Consult ordered by: Sharon Dempsey CRNP REQUESTING SERVICE: Hospitalist REASON FOR CONSULT: chest pain HPI: Fernandez Russo is a 53 year old male with PMHx T2 DM, HTN, HLD, Hx ETOH use , daily marijuana use who presented to [facility] ED yesterday for evaluation of chest pain. He was shoveling dirt and developed shortness of breath and substernal chest pressure rated at 4/10 radiating to his back. His L hand also felt numb and tingly. This was accompanied by lightheadedness and presyncope. Patient does report he has been having BUCK x3 weeks. Social Hx: hx ETOH use (quit 3 months ago), daily marijuana use, denies tobacco use Family Hx: no significant family history In ED troponin flat. 15, 13, 12. D-dimer elevated, CT PE negative. DSE completed this morning He remains chest pain free PAST MEDICAL HISTORY: Past Medical History: Diagnosis Date Disc disorder of cervical region Personal history of colonic polyps 11/05/13 adenomatous PAST SURGICAL HISTORY: Past Surgical History: Procedure Laterality Date COLONOSCOPY, DIAGNOSTIC (RECTUM) 11/05/2013 1 adenomatous polyp, repeat in 5 yrs/COLONOSCOPY FLEXIBLE PROXIMAL DIAGNOSTIC performed by Hong Mcelroy MD at ENDOSCOPY [facility] EGD, FLEXIBLE, DIAGNOSTIC N/A 03/23/2014 mild inflammation, repeat in 2 yrs/ESOPHAGOGASTRODUODENOSCOPY (EGD), FLEXIBLE, TRANSORAL, DIAGNOSTIC performed by Hong Gonzalez MD at ENDOSCOPY [facility] LAMINOTOMY, ADDL LUMBAR N/A 02/15/2022 LAMINOTOMY ADDITIONAL LUMBAR DISK EXCISION performed by Ba Napoles MD at [facility] LUMBAR SPINE FUSION, POST INTERBODY N/A 02/15/2022 ARTHRODESIS SPINE POSTERIOR INTERBODY WITH LAMINECTOMY LUMBAR performed by Ryne Khan [facility] LUMBAR SPINE FUSION, POSTEROLATERAL N/A 02/15/2022 ARTHRODESIS SPINE POSTERIOR LUMBAR performed by Ba Napoles MD at [facility] REMOVE GALLBLADDER REMOVE LUMBAR SPINE LAMINA, 1 SEG N/A 02/15/2022 LAMINECTOMY FACETECTOMY AND FORAMINOTOMY LUMBAR performed by Ba Napoles MD at [facility] REPAIR INITIAL INGUINAL HERNIA REDUCIBLE AGE 5 OR MORE B/L as a teenage SPINE FUSION, EACH ADD'L VERTEBRA N/A 02/15/2022 ARTHRODESIS SPINE POSTERIOR EACH ADDITIONAL VERTEBRAE performed by Ba Napoles MD at [facility] FAMILY HISTORY: Family History Problem Relation Name Age of Onset Cancer Mother esophagus cancer Neurological Disorder Father Depression No Past Hx Grandmother (Maternal) No Past Hx Grandfather (Maternal) No Past Hx Grandmother (Paternal) No Past Hx Grandfather (Paternal) SOCIAL HISTORY: Social History Tobacco Use Smoking status: Never Smokeless tobacco: Former Vaping Use Vaping status: Never Used Substance Use Topics Alcohol use: Not Currently Comment: 6-8 cans beer per day Not in a few months Drug use: Yes Frequency: 3.0 times per week Types: Marijuana ALLERGIES: Yellow jacket venom ROS: Review of Systems Constitutional: Negative for activity change, appetite change, fatigue, fever and unexpected weightchange. HENT: Negative for tinnitus, trouble swallowing and voice change. Eyes: Negative for visual disturbance. Respiratory: Negative for cough and shortness of breath. Cardiovascular: Negative for chest pain, palpitations and leg swelling. Gastrointestinal: Negative for abdominal distention and blood in stool. Genitourinary: Negative for difficulty urinating and hematuria. Musculoskeletal: Negative for myalgias. Skin: Negative for pallor. Neurological: Negative for dizziness, syncope, weakness, light-headedness, numbness and headaches. Psychiatric/Behavioral: Negative for confusion and sleep disturbance. PHYSICAL EXAMINATION: Most Recent Vital Signs: BP: 120 mmHg/71 mmHg (12/20/23706) Pulse: 65 (12/20/23706) Resp: 18 (12/20/23706) Temp: 37 C (12/20/23706) Temp Summary: Temp Min: 36 °C (96.8 °F) Max: 37 °C (98.6 °F) SpO2: 97 % (12/20/23706) O2 flow rate: Supplemental O2 Delivery: Room Air, None (12/20/23706) Physical Exam Constitutional: General: He is not in acute distress. Appearance: Normal appearance. He is normal weight. He is not ill-appearing. HENT: Head: Normocephalic. Eyes: Pupils: Pupils are equal, round, and reactive to light. Cardiovascular: Rate and Rhythm: Normal rate and regular rhythm. Pulses: Normal pulses. Heart sounds: Normal heart sounds. No murmur heard. No friction rub. No gallop. Pulmonary: Effort: Pulmonary effort is normal. Breath sounds: Normal breath sounds. No wheezing, rhonchi or rales. Abdominal: General: Bowel sounds are normal. There is no distension. Palpations: Abdomen is soft. Musculoskeletal: General: Normal range of motion. Right lower leg: No edema. Left lower leg: No edema. Skin: General: Skin is warm and dry. Coloration: Skin is not pale. Neurological: General: No focal deficit present. Mental Status: He is alert and oriented to person, place, and time. Psychiatric: Mood and Affect: Mood normal. Judgment: Judgment normal. LABS: Labs reviewed as indicated below: IMAGING: EKG 12/19/2023 SB 59bpm ECHO 12/14/2022 The qualitative LV ejection fraction is 60-64% (normal). The right ventricular cavity size is normal. The right ventricular systolic function is normal. No significant valvular disease. IMPRESSION and PLAN: Chest pain Hx ETOH use Daily marijuana use HTN HLD -Patient with exertional chest pain -ACS ruled out -EKG without acute changes -Troponin flat x3 -DSE in process -Further recommendations pending results. Leticia Shaw PA-C Patient care discussed and coordinated with Dr. Suazo. Please refer to Dr. Suazo's notes for further recommendations. I spent a total of 39 minutes coordinating, documenting, and providing care for this patient excluding time spent in the performance of separately billed services or time spent by another provider/QHP. Associated attestation - Gaviota Suazo MD - 12/20/2023 4:15 PM EDT I have reviewed the advanced practitioner's documentation on the date of service referenced in note, and I agree with, and take responsibility for the plan of care. I spent a total of 20 minutes coordinating, documenting, and providing care for this patient excluding time spent in the performance of separately billed services or time spent by another provider/QHP. I have not seen this patient but discussed with the advanced nurse practitioner documented in this encounter Nursing Notes * Carin Rosas RN - 12/20/2023 1:57 PM EDT VIRTUAL RN [facility] [id number] Name: Fernandez Russo Location: [facility] [id number] Date: 12/20/2023 Time: 1:58 PM I completed the Discharge Navigator. The patient was in the hospital. I was not in a hospital or clinic location. After connecting through [employer], the patient was identified by name and date of and / or wristband checked. Patient (or authorized legal pharmacy services representative) was then informed that this was a Virtual Nurse visit and was being conducted confidentially over secure lines. I used a headset and other methods to ensure confidentiality for the patient. My office door was closed. No oneelse was in the room with me. Patient acknowledged consent and understanding of privacy and security of the Virtual Nurse visit. I presented the opportunity for the patient or authorized legal pharmacy services representative to ask any questions regarding the visit today. The patient or authorized legal pharmacy services representative agreed to participate. * Rani Estrada RN - 12/20/2023 1:50 PM EDT Virtual nurse completing dc at this time. * Rani Estrada RN - 12/20/2023 12:57 PM EDT Pt requesting potentially an inhaler for intermittent SOB during working be ordered for his DC. TT provider (Levi) to pass along. * Rani Estrada RN - 12/20/2023 7:30 AM EDT Resting in bed this morning. Out for stress test. Once returned, medicated per EMAR and assessmentscompleted, see flowsheets. Pt had breakfast and shower. No further needs verbalized at this time. * Kingston Tomas LPN - 12/19/2023 9:41 PM EDT 2000- Pt A&O x4. Respirations unlabored on room air. Assessment completed. Pt denies chest pain, shortness of breath. Hand grasps, strong and equal. Medications administered per APR. Call spears within reach. * Vikash Simmons RN - 12/19/2023 6:46 PM EDT 1829 Patient admitted to . Ambulated from chair to bed IND. Dual Licensed Skin Assessment completed by Vikash Garcia and Ivonne Holden. The patient is/has a N/A Skin Breakdown (includes non blanchable erythema): No * Mago Cox RN - 12/19/2023 6:13 PM EDT Late entry: Pt here with c/o LUE pain x 1 week that has been waking him up. He describes L hand as feeling "" and "like a ton of bricks" is sitting on hand. He reports lightheadedness intermittently x 1 week. Today, chest pressure started across entire L chest and radiating into back. It started while he was working. In ED, initially pain 8/10, but decreased to 3/10 throughout course of ED stay. ReportedSOB and nausea upon arrival. Lungs clear in all lobes. Mild reproducible pain to chest with palpation. Heart sounds clear and regular. ELECTROLYTIC DE SCALER 2 sec and distal pulses equal bilaterally. Pt calm and cooperative. 1821 report called to Nataly MAI on 4B to assume care of pt upon arrival to unit. documented in this encounter ED Notes * Mago Cox RN - 12/19/2023 12:17 PM EDT ALS report: Pt here with c/o LUE pain x 1 week that would wake him up at night. Chest pressure started today. Described as "a ton of bricks on my hand" and reports that hand feels "" and numb. Has been getting lightheaded especially with mvmt for last week. Had 324mg asa en route. +SOB intermittently. documented in this encounter Miscellaneous Notes * Ancillary Progress Note - Chanel Torrez [employer] Manager - 12/20/2023 1:57 PM EDT CARE MANAGEMENT - ADULT DISCHARGE NOTE [facility] [id number] Name: Fernandez Russo [address]: [address] Date: 12/20/2023 Time: 4:19 PM The following coordination of care and discharge plan has been coordinated with the care team, patient, family and/or caregiver according to the patients’ needs and preferences. Discharge Discharge Was Caregiver/Family/Facility contacted regarding discharge: Yes (12/20/23 1358) Final Discharge Plan (Complete only at time of Discharge): Home - Self Care (12/20/23 1097) Narrative: Pt discharged home with self care. Pt declined D&A resources. Pt transported home byfamily. * Hospital Course - Edwar Ha MD - 12/20/2023 11:42 AM EDT Fernandez Russo, 53 yo M, hx of alcohol abuse (sober x 3 months), HTN/HLD, DM2, Pizarro's esophagus, CTS, lumbar radiculopathy, daily marijuana use, who presents to [facility] for chest pain associated withDOE, LH, and near syncope. Reports he was shoveling dirt and became SOB, had left chest pain pain radiating to his back, left hand felt heavy and numb, and thought he was going to pass out. BUCK Ongoing x 3 weeks ED workup remarkable for TYRA. (1.1 baseline, up 1.5 down trending 1.4 at discharge). EKG, Troponin's, D-dimer, CT PE, dobutamine stress echo all are unremarkable for acute ischemic cardiac changes. Being managed for Chest pain with TYRA. Pt stable, ACS ruled out and stable for discharge. * Ancillary Progress Note - Chanel Torrez, Golf Club Manager - 12/20/2023 10:23 AM EDT CARE MANAGEMENT - ADULT INITIAL SCREENING [address] [phone] Name: Fernandez Russo Location: [address] Date: 12/20/2023 Time: 10:23 AM Discussed patient with the interdisciplinary care team. This Asset Protection Lead performed a chart review and met with patient at bedside to complete admission screen and assessed needs for transition planning. The patient care technician instructor role and services were explained and emotional support was provided. Chief Complaint: Chest Pain and Arm Pain Prior Living Arrangements What was your living situation prior to admission/observation?: Other (Comment) ("roomate") (12/20/23 101) Living Quarters: House (12/20/231018) Number of steps to enter living quarters:: 3 (12/20/23 101) Do you have serious difficulty walking or climbing stairs? (5 years old or older): No (12/19/23 184) History of falling: Yes (12/20/23 0856) Prior Level of Functioning Describe the patient's ability prior to admission/observation to perform ADLs: Performs independently (12/20/23 101) Describe the patient's mobility status prior to admission: Patient ambulates independently (12/20/23 101) Patient uses assistive device: No (12/20/231018) Caregiver Information Patient Contacts Name Relation Home Work Mobile Douglas Russo [facility] [phone] Douglas Russo Sr is the patient's surrogate decision maker Risk Stratification/Psychosocial/Care Gaps Risk Stratification Psycho Social / Medical Concerns Identified: Substance Abuse (12/20/231018) Accessed 24[employer] to connect patients to social care resources: No (patient declined any D/A resources) (12/20/231018) OBRA or OPTIONS needed for placement: No (12/20/231018) Readmission Risk Score: 12.63 (12/20/23 0801) AM-PAC Score With Stairs : 24 (12/19/231999) Prior to Admission Services Services Prior to Admission WEB UI DESIGNER Services (Services received within the last 30 days with exception, Psych within last two years): N/A (12/20/231018) [place] Dept[place] of Aging (PDA) Waiver Program: N/A (12/20/231018) WEB UI DESIGNER Transportation (Services received within the last 30 days): Patient drives self (12/20/231018) Outpatient Asset Protection Lead: No care associate team physician to display Patient/Family Expectations: discharge to home. Patient admitted on 12/19/23 for c/o chest pain. Patient lives with a roommate in a one-story home with 3 steps to enter. Patient is independent with ADL's and does not use assistive devices for mobility. Patient is not on oxygen, CPAP, or BiPap machines. Patient triggered for substance use. 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 Patient states he does use marijuana and has a medical card. CM offered resources from [facility]. Patient declined. Patient does not have HH and is not interested at this time. Patient drives self to appointments. Family to transport patient home at discharge. For further screening information, please refer to the Care Management flow document. * Pt Handout (on AVS) - Ching Beyer RN - 12/19/2023 6:51 PM EDT Images from the original note were not included. [id number] What Is Angina? Angina is a warning sign that your heart muscle isn't getting enough oxygen-rich blood and is at risk for damage. Medicines, certain medical procedures, and lifestyle changes can help control angina.Talk with your healthcare provider about how to prevent angina and what to do if you get it. How does angina feel? Angina is most often described as chest pain, but this can be misleading. Angina isn't always painful, and it isn?t always felt in the chest. Angina might feel like: · Discomfort, an aching, sharp, dull, or burning sensation, tightness or squeezing, or pressure that comes and goes. You may feel it in your chest, back, belly (abdomen), arm, shoulder, neck, or jaw. Other symptoms may include: · Severe tiredness (fatigue) that gets worse, or feeling more tired than normal for no clear reason · Shortness of breath while doing something that used to be easy · Heartburn, indigestion, upset stomach (nausea), rapid heart rate, or sweating · Feeling lightheaded or fainting Call 911 Call 911 right away if any of your symptoms: · Last more than a few minutes · Go away and come back · Happen at rest and don't go away after taking nitroglycerin as prescribed by your healthcare provider · Keep getting worse You could be having a heart attack (acute myocardial infarction). Don't drive to the hospital yourself or have someone else drive you. Call 911 for an ambulance to transport you. The emergency medical policy specialist can start treating you right away. When does angina happen? · Angina usually happens during activity. It can also occur when you have emotional stress or after a large meal. Sometimes angina can happen when the weather is too hot or too cold. All of these things can put more stress on your body and your heart. · You may have unstable angina if angina: o Starts occurring more often o Lasts longer o Happens even when you're resting, sleeping, or doing little physical activity o Causes more discomfort It?s a sign that your heart problem may be getting worse. You need to call your healthcare providerright away. Last Reviewed Date: 2023 00:00:00 © [employer]. All rights reserved. This information is not intended as a substitute for professional medical care. Always follow your healthcare professional's instructions. * Medical Necessity - Edgard Baires, Utilization Review Staff - 12/19/2023 5:41 PM EDT AdmissionCare Guideline: Chest Pain - OBS, Observation Based on the indications selected for the patient, the bed status of Observation was determined to be MET The following indications were selected as present at the time of evaluation of the patient: - Observation Care Admission Criteria - Observation care is indicated for 1 or more of the following: - Other aspect of patient presentation indicative of need for monitoring or testing beyond emergency department treatment time frame (eg, concern for arrhythmia) AdmissionCare documentation entered by: Edgard Baires [facility], 28th edition, Copyright © 2023 [facility] All Rights Reserved. [id number] Solely for purpose of utilization review and payment; not a diagnostic tool documented in this encounter Plan of Treatment Upcoming Encounters Date Type Department Care Team (Late st Contact Info) Description 12/24/2023 9:00 AM EST Office Visit [facility] [address] [phone] Joey Barnes MD [address] [phone] 03/17/2024 8:00 AM EST [facility] [address] [place] [address] Leitcia Shaw PA-C [address] [place] [phone] 06/01/2024 10:20 AM EDT [facility] [address] [phone] Edgar Cardona MD [address] [phone] Scheduled Procedures Name Priority Associated Diagnoses Date/Ti me COLONOSCOPY FLEXIBLE PROXIMAL DIAGNOSTIC Recall 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, colon Pizarro esophagus ESOPHAGOGASTRODUODENOSCOPY ( EGD), FLEXIBLE, TRANSORAL, DIAGNOSTIC Recall 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, colon Pizarro esophagus Health Maintenance Due Date Last Done Comments Hepatitis B Vaccine (1 of 3 - 19+ 3-dose series) 1988 Cologuard 2014 Fecal Occult Blood Test 2014 Sigmoidoscopy 2014 Pizarro's Esophagus Surveilance 03/23/2017 03/23/2014, 03/23/2014 Colonoscopy 11/05/2018 [...] this encounter Medical Devices Implanted Type Area Bun Icer Device Identifier Shelf Expiration Date Model / Serial / Lot Concorde Proti 5 Dg, [id number] Implanted:Qty: 1 on 02/15/2022 by Ba Napoles MD at [place] [facility] [place] Cage N/A: Spine Lumbar [employer] 10/25/2025 [id number] / / [id number] Screw 7x55mm Implanted:Qty: 2 on 02/15/2022 by Ba Napoles MD at [place] [facility] Screw N/A: Spine Lumbar [employer] / / Vivigen Mis Delivery System Pre-Filled Cannula With Cellular Bone Matrix (Processed By [employer], Exclusively Distributed By [employer]) Implanted:Qty: 1 on 02/15/2022 by Ba Napoles MD at [place] [facility] N/A: Spine Lumbar LIFENET 01/05/2023 -1899-001 / [id number] / [id number] Vivigen Mis Delivery System Pre-Filled Cannula With Cellular Bone Matrix (Processed By [employer]ula, Exclusively Distributed By [employer]) Implanted:Qty: 1 on 02/15/2022 by Ba Napoles MD at [place] [facility] N/A: Spine Lumbar LIFENET 01/05/2023 -001 / [id number] / [id number] Concorde Proti 5 Dg Implanted:Qty: 1 on 02/15/2022 by Ba Napoles MD at [place] [facility] N/A: Spine Lumbar [employer] 06/03/2024 [id number] / / [id number] Screw 7.0qgg25ol Thr Maxtrix - [id number] Implanted:Qty: 2 on 02/15/2022 by Ba Napoles MD at [place] [facility] N/A: Spine Lumbar SYNTHES : DEPUY 74 / / Screw Matrx 7.0x50mm - [id number] Implanted:Qty: 2 on 02/15/2022 by Ba Napoles MD at [place] [facility] N/A: Spine Lumbar JNJ : [employer] 750 / / Cap Locking W/O Saddle Matrix - [id number] Implanted:Qty: 6 on 02/15/2022 by Ba Napoles MD at [place] [facility] N/A: Spine Lumbar SYNTHES : DEPUY 099 / / Head Poly Top Load Matrix - [id number] Implanted:Qty: 6 on 02/15/2022 by Ba Napoles MD at [place] [facility] N/A: Spine Lumbar SYNTHES : DEPUY 001 / / Pre Lordosed Anastacio W Line 75mm - [id number] Implanted:Qty: 2 on 02/15/2022 by Ba Napoles MD at [place] [facility] N/A: Spine Lumbar JNJ : [employer]INE [id number] / / documented as of this encounter Procedures Procedure Name Priority Date/Time Associated Diagnosis Comments GLUCOSE METER, POINT OF CARE RUBI 12/20/2023 11:17 AM EDT HC 2D TTE W OR W/O CONTR CONT ECG Routine 12/20/2023 8:24 AM EDT Angina pectoris (HCC) GLUCOSE METER, POINT OF CARE RUBI 12/20/2023 7:10 AM EDT BASIC METABOLIC PANEL Routine 12/20/2023 5:34 AM EDT CBC Routine 12/20/2023 5:34 AM EDT MAGNESIUM Routine 12/20/2023 5:34 AM EDT URINALYSIS, REFLEX TO CULTURE Routine 12/20/2023 3:19 AM EDT URINALYSIS, REFLEX TO CULTURE (CUP ONLY) Routine 12/20/2023 3:19 AM EDT URINALYSIS, REFLEX TO CULTURE (NOT FOR NEUTROPENIC PATIENTS) Routine 12/20/2023 3:19 AM EDT GLUCOSE METER, POINT OF CARE RUBI 12/19/2023 9:02 PM EDT LIPID PANEL WITH DIRECT LDL IF TG IS HIGH Routine 12/19/2023 5:[address] PULMONARY EMBOLUS W CONTRAST STAT 12/19/2023 4:35 PM EDT TROPONIN T, HIGH SENSITIVITY STAT 12/19/2023 2:53 PM EDT TROPONIN T, HIGH SENSITIVITY STAT 12/19/2023 1:27 PM EDT BNP (NT-PROBNP) Add-on 12/19/2023 1:27 PM EDT LIPASE Add-on 12/19/2023 1:27 PM EDT XR CHEST 1 VIEW STAT 12/19/2023 12:32 PM EDT EXTRA CHAVARRIA TOP Routine 12/19/2023 12:25 PM EDT EXTRA LIGHT BLUE TOP STAT 12/19/2023 12:25 PM EDT EXTRA TUBES Routine 12/19/2023 12:25 PM EDT DIFFERENTIAL, AUTOMATED STAT 12/19/2023 12:25 PM EDT TROPONIN T, HIGH SENSITIVITY STAT 12/19/2023 12:25 PM EDT HEMOGLOBIN A1C Add-on 12/19/2023 12:25 PM EDT COMPREHENSIVE METABOLIC PANEL STAT 12/19/2023 12:25 PM EDT D-DIMER Add-on 12/19/2023 12:25 PM EDT CBC STAT 12/19/2023 12:25 PM EDT CBC STAT 12/19/2023 12:25 PM EDT documented in this encounter Results * (ABNORMAL) GLUCOSE METER, POINT OF CARE (12/20/2023 11:17 AM EDT) GLUCOSE - POCT 147(H) 70 - 120 mg/dL 12/20/2023 11:23 AM EDT [facility] Blood Whole blood specimen / Unknown 12/20/2023 11:17 AM EDT 12/20/2023 11:23 AM EDT Renaldo Sims MD LAB POINT OF CARE T EST DOCKED DEVICE UNSOLICITED RESULTS [facility] [address] [place] [address] * ECHO, STRESS (DOBUTAMINE) W/ PHYSICIAN (12/20/2023 8:24 AM EDT) Pathologist [facility] LEFT VENTRICULAR EJECTION FRACTION 60 % [facility] CARDIOLOG[facility] 12/20/2023 7:45 AM EDT Sharon HAMMER ECHOCARDIOLO GY Performing Organization Address City/[facility]/ZIP Co de Phone Number [facility]ARDIOLOG[facility] * (ABNORMAL) GLUCOSE METER, POINT OF CARE (12/20/2023 7:10 AM EDT) GLUCOSE - POCT 131(H) 70 - 120 mg/dL 12/20/2023 7:28 AM EDT [facility] Blood Whole blood specimen / Unknown 12/20/2023 7:10 AM EDT 12/20/2023 7:28 AM EDT Renaldo Sims MD LAB POINT OF CARE T EST DOCKED DEVICE UNSOLICITED RESULTS Performing Organization Address City/[facility]/ZIP Co de Phone Number [facility] [address] [place] [address] * (ABNORMAL) BASIC METABOLIC PANEL (12/20/2023 5:34 AM EDT) BUN 13 6 - 20 mg/dL 12/20/2023 6:35 AM EDT LABORATORY GL CREATININE 1.4(H) 0.6 - 1.2 mg/dL 12/20/2023 6:35 AM EDT LABORATORY GL EGFR 62 >=60 mL/min 12/20/2023 6:35 AM EDT LABORATORY GL[facility] Comment:eGFR is calculated b ased on the CKD-EPI 2020 equation. SODIUM 141 135 - 146 mmol/L 12/20/2023 6:35 AM EDT LABORATORY [facility] POTASSIUM 4.7 3.5 - 5.1 mmol/L 12/20/2023 6:35 AM EDT LABORATORY [facility] CHLORIDE 107 98 - 107 mmol/L 12/20/2023 6:35 AM EDT LABORATORY GL[facility] CO2 24 22 - 32 mmol/L 12/20/2023 6:35 AM EDT LABORATORY GL ANION GAP 10 7 - 15 mmol/L 12/20/2023 6:35 AM EDT LABORATORY GLH GLUCOSE 118 70 - 120 mg/dL 12/20/2023 6:35 AM EDT LABORATORY [facility] CALCIUM 9.2 8.4 - 10.2 mg/dL 12/20/2023 6:35 AM EDT LABORATORY GL Blood Venous blood specimen / Unknown Venipuncture / Unknown 12/20/2023 5:34 AM EDT 12/20/2023 5:54 AM EDT Sharon HAMMER LAB BLOOD OR DERABLES LABORATORY [facility] [address] [place] [address] * MAGNESIUM (12/20/2023 5:34 AM EDT) Magnesium 1.9 1.5 - 2.6 mg/dL 12/20/2023 6:35 AM EDT LABORATORY GL Blood Venous blood specimen / Unknown Venipuncture / Unknown 12/20/2023 5:34 AM EDT 12/20/2023 5:54 AM EDT Sharon HAMMER LAB BLOOD OR DERABLES Performing Organization Address City/[facility]/ZIP Co de Phone Number LABORATORY [address] [phone] * (ABNORMAL) CBC (12/20/2023 5:34 AM EDT) WBC 3.51(L) 4.00 - 10.80 K/uL 12/20/2023 6:05 AM EDT LABORATORY [facility] RBC 3.70 4.50 - 5.25 M/uL 12/20/2023 6:05 AM EDT LABORATORY [facility] HGB 11.8(L) 14.0 - 16.8 g/dL 12/20/2023 6:05 AM EDT LABORATORY [facility] HCT 34.9(L) 40.0 - 48.4 % 12/20/2023 6:05 AM EDT LABORATORY [facility] MCV 94.3 82.0 - 99.5 fL 12/20/2023 6:05 AM EDT LABORATORY [facility] MCH 31.9 27.0 - 34.0 pg 12/20/2023 6:05 AM EDT LABORATORY [facility] MCHC 33.8 32.0 - 36.0 g/dL 12/20/2023 6:05 AM EDT LABORATORY [facility] RDW 13.0 11.5 - 15.5 % 12/20/2023 6:05 AM EDT LABORATORY [facility] PLT 183 140 - 400 K/uL 12/20/2023 6:05 AM EDT LABORATORY [facility] MPV 9.9 6.6 - 11.1 fL 12/20/2023 6:05 AM EDT LABORATORY [facility] nRBCs 0 <=0 /100 WBCs 12/20/2023 6:05 AM EDT LAB[facility]ATORY [facility] Blood Venous blood specimen / Unknown Venipuncture / Unknown 12/20/2023 5:34 AM EDT 12/20/2023 5:54 AM EDT Sharon HAMMER LAB BLOOD OR DERABLES LABORATORY [address] [place] [address] * URINALYSIS, REFLEX TO CULTURE (12/20/2023 3:19 AM EDT) Color, Urine Yellow Light Yellow, Yellow, Dark Yellow 12/20/2023 3:48 AM EDT LABORATORY GL Clarity, Urine Clear Clear 12/20/2023 3:48 AM EDT LABORATORY GL Glucose, Urine Negative Negative mg/dL 12/20/2023 3:48 AM EDT LABORATORY GL Bilirubin, Urine Negative Negative 12/20/2023 3:48 AM EDT LABORATORY GL Ketone, Urine Negative Negative mg/dL 12/20/2023 3:48 AM EDT LABORATORY GL Specific [place], Urine 1.014 1.003 - 1.030 12/20/2023 3:48 AM EDT LABORATORY [facility] Blood, Urine Negative Negative 12/20/2023 3:48 AM EDT LABORATORY GL pH, Urine 5.5 5.0 - 7.5 Units 12/20/2023 3:48 AM EDT LABORATORY GL Protein, Urine Negative Negative mg/dL 12/20/2023 3:48 AM EDT LABORATORY GL Urobilinogen, Urine 0.2 0.2, 1.0 mg/dL 12/20/2023 3:48 AM EDT LABORATORY GL Nitrite, Urine Negative Negative 12/20/2023 3:48 AM EDT LABORATORY [facility] Esterase, Urine Negative Negative 12/20/2023 3:48 AM EDT LABORATORY GL RBC, Urine 0-2 0 - 2 /HPF 12/20/2023 3:48 AM EDT LABORATORY GL WBC, Urine 0-2 0 - 2 /HPF 12/20/2023 3:48 AM EDT LABORATORY GL Bacteria, Urine 0-25 0 - 25 /HPF 12/20/2023 3:48 AM EDT LABORATORY GL Culture, Urine 12/20/2023 3:48 AM EDT LABORATORY GL Comment:Culture not indicate d by urinalysis results Urine Urine specimen obtained by clean catch procedure / Unknown Non-blood Collection / Unknown 12/20/2023 3:19 AM EDT 12/20/2023 3:24 AM EDT Sharon Dempsey JAQUELIN LAB URINE OR DERABLES Performing Organization Address [facility] de Phone Number LABORATORY [address] [phone] * URINALYSIS, REFLEX TO CULTURE (CUP ONLY) (12/20/2023 3:19 AM EDT) Urinalysis, Reflex to Culture Specimen Specimen collected and received 12/20/2023 5:01 AM EDT LABORATORY [facility] Urine Urine specimen obtained by clean catch procedure / Unknown Non-blood Collection / Unknown 12/20/2023 3:19 AM EDT 12/20/2023 3:24 AM EDT Sharon Dempsey JAQUELIN LAB URINE OR DERABLES Performing Organization Address [facility] de Phone Number LABORATORY [address] [phone] * GLUCOSE METER, POINT OF CARE (12/19/2023 9:02 PM EDT) [facility] GLUCOSE - POCT 100 70 - 120 mg/dL 12/19/2023 9:15 PM EDT [facility] Blood Whole blood specimen / Unknown 12/19/2023 9:02 PM EDT 12/19/2023 9:15 PM EDT Ren Bonilla MD LAB POINT OF CARE T EST DOCKED DEVICE UNSOLICITED RESULTS Performing Organization Address City/[facility] Co de Phone Number [facility] [address] [place] [phone] * LIPID PANEL WITH DIRECT LDL IF TG IS HIGH (12/19/2023 5:43 PM EDT) Triglycerides 51 <=174 mg/dL 12/19/2023 9:51 PM EDT LABORATORY [facility] Comment: Triglyceride Reference Ranges (mg/dL): <150 Acceptable 150-174 Borderline high 175-499 High >=500 Very high Cholesterol 122 <200 mg/dL 12/19/2023 9:51 PM EDT LABORATORY [facility] Comment: Total Cholesterol Reference Ranges (mg/dL): <200 Desirable 200-239 Borderline high >=240 High HDL Cholesterol 74 >39 mg/dL 9:51 PM EDT LABORATORY [facility] Comment: HDL Cholesterol Reference Ranges (mg/dL): >=60 High (Desirable) <50 Low (Undesirable) For Females <40 Low (Undesirable) For Males Non-HDL Cholesterol 48 <=159 mg/dL 12/19/2023 9:51 PM EDT LABORATORY [facility] Comment: Non-HDL Cholesterol Reference Range (mg/dL): <100 Target level for high risk ASCVD patient <130 Optimal for general population 130-159 Near optimal for general population 160-189 Borderline High 190-219 High >=220 Very High LDL Cholesterol 38 <=129 mg/dL 12/19/2023 9:51 PM EDT LABORATORY [facility] Comment: LDL Cholesterol Reference Ranges (mg/dL): <70 Target level for high risk ASCVD patient <100 Optimal for general population 100-129 Near optimal for general population 130-159 Borderline high 160-189 High >=190 Very high Blood Venous blood specimen / Unknown Venipuncture / Unknown 12/19/2023 5:43 PM EDT 12/19/2023 5:46 PM EDT Sharon HAMMER LAB BLOOD OR DERABLES LABORATORY [facility] [address] [place] [address] * CT PULMONARY EMBOLUS W CONTRAST (12/19/2023 4:35 PM EDT) Anatomical Region Laterality Modality Chest, Cardio, Body Computed De ography 12/19/2023 4:22 PM EDT Impressions 12/19/2023 4:51 PM EDT IMPRESSION: 1. No acute pulmonary embolus. 2. No pneumonia or congestive heart failure. THIS DOCUMENT HAS BEEN ELECTRONICALLY SIGNED BY SARAH HODGSON MD Narrative 12/19/2023 4:51 PM EDT PROCEDURE INFORMATION: Exam: CTA Chest With Contrast Exam date and time: 12/19/2023 4:22 PM Age: 53 years old Clinical indication: Other: Elevated ddimer TECHNIQUE: Imaging protocol: Computed tomographic angiography of the chest with contrast. Exam focused on the arteries. 3D rendering (Not supervised by radiologist): MIP and/or 3D reconstructed images were created by the technologist. Radiation optimization: All CT scans at this facility use at least one of these dose optimization techniques: automated exposure control; mA and/or kV adjustment per patient size (includes targeted exams where dose is matched to clinical indication); or iterative reconstruction. Contrast material: ISO 370; Contrast volume: 100 ml; Contrast route: INTRAVENOUS (IV); COMPARISON: CTA CHEST/ABDOMEN/PELVIS 12/14/2022 3:21 AM FINDINGS: Pulmonary arteries: No acute pulmonary embolus. Aorta: There is no acute abnormality of the thoracic aorta. Celiac trunk and mesenteric arteries: The celiac axis and superior mesenteric artery are patent without significant proximal stenosis. Lungs: There are no areas of dense parenchymal consolidation. Pleural spaces: No pleural effusions. Heart: RV/LV ratio is 0.9 (normal <1). No intraventricular septal bowing or hepatic reflux of contrast. Coronary arteries: No coronary artery calcification. Lymph nodes: No mediastinal or hilar adenopathy. Gallbladder and biliary ducts: There has been a cholecystectomy. Bones/joints: Unremarkable. No acute fracture. Soft tissues: Unremarkable. Procedure Note Sarah Hodgson MD - 12/19/2023 PROCEDURE INFORMATION: Exam: CTA Chest With Contrast Exam date and time: 12/19/2023 4:22 PM Age: 53 years old Clinical indication: Other: Elevated ddimer TECHNIQUE: Imaging protocol: Computed tomographic angiography of the chest withcontrast. Exam focused on the arteries. 3D rendering (Not supervised by radiologist): MIP and/or 3D reconstructed images were created by the technologist. Radiation optimization: All CT scans at this facility use at least one ofthese dose optimization techniques: automated exposure control; mA and/or kV adjustment per patient size (includes targeted exams where dose is matchedto clinical indication); or iterative reconstruction. Contrast material: ISO 370; Contrast volume: 100 ml; Contrast route: INTRAVENOUS (IV); COMPARISON: CTA CHEST/ABDOMEN/PELVIS 12/14/2022 3:21 AM FINDINGS: Pulmonary arteries: No acute pulmonary embolus. Aorta: There is no acute abnormality of the thoracic aorta. Celiac trunk and mesenteric arteries: The celiac axis and superiormesenteric artery are patent without significant proximal stenosis. Lungs: There are no areas of dense parenchymal consolidation. Pleural spaces: No pleural effusions. Heart: RV/LV ratio is 0.9 (normal <1). No intraventricular septal bowingor hepatic reflux of contrast. Coronary arteries: No coronary artery calcification. Lymph nodes: No mediastinal or hilar adenopathy. Gallbladder and biliary ducts: There has been a cholecystectomy. Bones/joints: Unremarkable. No acute fracture. Soft tissues: Unremarkable. IMPRESSION IMPRESSION: 1. No acute pulmonary embolus. 2. No pneumonia or congestive heart failure. THIS DOCUMENT HAS BEEN ELECTRONICALLY SIGNED BY SARAH HODGSON MD Dionicio Elmore MD RAD CT * TROPONIN T, HIGH SENSITIVITY (12/19/2023 2:53 PM EDT) [facility] Troponin T, High Sensitivity 12 <=22 ng/L 12/19/2023 3:16 PM EDT LABORATORY [facility] Comment:Result may be falsel y decreased due to hemolysis. Blood Venous blood specimen / Unknown Venipuncture / Unknown 12/19/2023 2:53 PM EDT 12/19/2023 2:58 PM EDT Dionicio Elmore MD LAB BLOOD ORDERA BLES LABORATORY [address] [address] * BNP, NT-PRO (12/19/2023 1:27 PM EDT) [facility] BNP, NT-Pro 119 <300 pg/mL 12/19/2023 3:26 PM EDT LABORATORY [facility] Blood Venous blood specimen / Unknown Venipuncture / Unknown 12/19/2023 1:27 PM EDT 12/19/2023 1:42 PM EDT Narrative LABORATORY [facility] - 12/19/2023 3:26 PM EDT Exclude Heart Failure: <300 pg/mL Diagnose Heart Failure: Age <50 yr: >450 pg/mL 50-75 yr: >900 pg/mL >75 yr: >1800 pg/mL GFR is 30-59 mL/min: >1200 pg/mL or Age-adjusted values GFR <30 mL/min: do not use, not reliable Prognostic threshold: 1000 pg/mL Dionicio Elmore MD LAB BLOOD ORDERA BLES Performing Organization Address [facility] de Phone Number LABORATORY [address] [address] * LIPASE (12/19/2023 1:27 PM EDT) Lipase 38 13 - 60 U/L 12/19/2023 2:55 PM EDT [facility]AT[facility] Blood Venous blood specimen / Unknown Venipuncture / Unknown 12/19/2023 1:27 PM EDT 12/19/2023 1:42 PM EDT Dionicio Elmore MD LAB BLOOD ORDERA BLES Performing Organization Address [facility] de Phone Number LABORATORY [address] [address] * TROPONIN T, HIGH SENSITIVITY (12/19/2023 1:27 PM EDT) Troponin T, High Sensitivity 13 <=22 ng/L 12/19/2023 2:08 PM EDT [facility]ATORY [facility] Blood Venous blood specimen / Unknown Venipuncture / Unknown 12/19/2023 1:27 PM EDT 12/19/2023 1:42 PM EDT Dionicio Elmore MD LAB BLOOD ORDERA BLES Performing Organization Address [facility] de Phone Number LABORATORY [address] [address] * XR CHEST 1 VIEW (12/19/2023 12:32 PM EDT) Anatomical Region Laterality Modality Chest Digital Radiogra phy 12/19/2023 12:2 9 PM EDT Impressions 12/19/2023 12:47 PM EDT IMPRESSION: No acute abnormality THIS DOCUMENT HAS BEEN ELECTRONICALLY SIGNED BY ADDY REARDON MD Narrative 12/19/2023 12:47 PM EDT PROCEDURE INFORMATION: Exam: XR Chest Exam date and time: 12/19/2023 12:29 PM Age: 53 years old Clinical indication: Other: Lue and chest pressure, SOB, diaphoresis TECHNIQUE: Imaging protocol: Radiologic exam of the chest. Views: 1 view. COMPARISON: CTA CHEST/ABDOMEN/PELVIS 12/14/2022 3:21 AM FINDINGS: Tubes, catheters and devices: Cardiac monitoring electrodes are seen Lungs: There is no interstitial edema. There is no consolidation Pleural spaces: There is no pleural effusion Heart/Mediastinum: The heart is not enlarged Bones/joints: There is degenerative change in the spine. Procedure Note Addy Reardon MD - 12/19/2023 PROCEDURE INFORMATION: Exam: XR Chest Exam date and time: 12/19/2023 12:29 PM Age: 53 years old Clinical indication: Other: Lue and chest pressure, SOB, diaphoresis TECHNIQUE: Imaging protocol: Radiologic exam of the chest. Views: 1 view. COMPARISON: CTA CHEST/ABDOMEN/PELVIS 12/14/2022 3:21 AM FINDINGS: Tubes, catheters and devices: Cardiac monitoring electrodes are seen Lungs: There is no interstitial edema. There is no consolidation Pleural spaces: There is no pleural effusion Heart/Mediastinum: The heart is not enlarged Bones/joints: There is degenerative change in the spine. IMPRESSION IMPRESSION: No acute abnormality THIS DOCUMENT HAS BEEN ELECTRONICALLY SIGNED BY ADDY REARDON MD Dionicio Elmore MD RADIOLOGY (RAD G ENERAL) * (ABNORMAL) HEMOGLOBIN A1C (12/19/2023 12:25 PM EDT) Hemoglobin A1C 6.1(H) 4.0 - 5.6 % 12/19/2023 10:28 PM EDT LAB[facility] Comment:The use of HbA1c to monitor glycemic status is based on normal hemoglobin and HbA composition. This test should not be used in patients with abnormal hemoglobin that affects the half life of the red blood cell or the in vivo glycation rates. Estimated Average Glucose 128(H) <126 mg/dL 12/19/2023 10:28 PM EDT [facility] Blood Venous blood specimen / Unknown Venipuncture / Unknown 12/19/2023 12:25 PM EDT 12/19/2023 12:30 PM EDT Sharon HAMMER LAB BLOOD OR DERABLES [facility]AT[facility] [address] [place] [address] * (ABNORMAL) D-DIMER (12/19/2023 12:25 PM EDT) Pathologist [facility] D-Dimer 0.78(H) <0.50 ug/mL FEU 12/19/2023 3:01 PM EDT [facility] Blood Venous blood specimen / Unknown Venipuncture / Unknown 12/19/2023 12:25 PM EDT 12/19/2023 12:30 PM EDT Narrative LAB[facility]ATORY [facility] - 12/19/2023 3:01 PM EDT Rheumatoid factor at a level above 50 IU/mL may lead to an overestimation of the D-dimer level. A normal D-dimer result (<0.50 ug/mL FEU) has a negative predictive value of approximately 95% for the exclusion of acute pulmonary embolism (PE) or deep vein thrombosis when there is low or moderate pretest PE probability. Increased D-dimer values are abnormal but do not indicate a specific disease state and the D-dimer increase does not definitively correlate with clinical severity of disease. Dionicio Elmore MD LAB BLOOD ORDERA BLES Performing Organization Address [facility] de Phone Number LABORATORY [address] [address] * EXTRA CHAVARRIA TOP (12/19/2023 12:25 PM EDT) Blood Venous blood specimen / Unknown Venipuncture / Unknown 12/19/2023 12:25 PM EDT 12/19/2023 12:30 PM EDT Dionicio Elmore MD LAB BLOOD ORDERA BLES Performing Organization Address [facility]/ZIP Co de Phone Number LABORATORY [facility] [address] [place] [address] * (ABNORMAL) DIFFERENTIAL, AUTOMATED (12/19/2023 12:25 PM EDT) Pathologist [facility] WBC 5.13 4.00 - 10.80 K/uL 12/19/2023 12:35 PM EDT LABORATORY [facility] Neutrophils % 41.9 40.0 - 75.0 % 12/19/2023 12:35 PM EDT LABORATORY [facility] Lymphocytes % 33.7 18.0 - 42.0 % 12/19/2023 12:35 PM EDT LAB[facility] Monocytes % 17.7(H) 1.0 - 11.0 % 12/19/2023 12:35 PM EDT LAB[facility] Eosinophils % 4.9 0.0 - 6.0 % 12/19/2023 12:35 PM EDT LABORATORY [facility] Basophils % 1.6 0.0 - 2.0 % 12/19/2023 12:35 PM EDT [facility] Immature Granulocytes % 0.2 0.0 - 2.0 % 12/19/2023 12:35 PM EDT LAB[facility] Absolute Neutrophils 2.15 1.80 - 7.70 K/uL 12/19/2023 12:35 PM EDT LABORATORY [facility] Absolute Lymphocytes 1.73 1.00 - 4.80 K/ul 12/19/2023 12:35 PM EDT LABORATORY [facility] Absolute Monocytes 0.91 0.00 - 1.10 K/uL 12/19/2023 12:35 PM EDT LABORATORY [facility] Absolute Eosinophils 0.25 0.00 - 0.70 K/uL 12/19/2023 12:35 PM EDT LABORATORY [facility] Absolute Basophils 0.08 0.00 - 0.20 K/uL 12/19/2023 12:35 PM EDT LABORATORY [facility] Absolute Immature Granulocytes 0.01 0.00 - 0.20 K/uL 12/19/2023 12:35 PM EDT [facility] Blood Venous blood specimen / Unknown Venipuncture / Unknown 12/19/2023 12:25 PM EDT 12/19/2023 12:30 PM EDT Dionicio Elmore MD LAB BLOOD ORDERA BLES LABORATORY [address] [id number] * (ABNORMAL) CBC (12/19/2023 12:25 PM EDT) [facility] WBC 5.13 4.00 - 10.80 K/uL 12/19/2023 12:35 PM EDT [facility] RBC 4.48 4.50 - 5.25 M/uL 12/19/2023 12:35 PM EDT LAB[facility] HGB 13.9(L) 14.0 - 16.8 g/dL 12/19/2023 12:35 PM EDT [facility] HCT 41.5 40.0 - 48.4 % 12/19/2023 12:35 PM EDT [facility] MCV 92.6 82.0 - 99.5 fL 12/19/2023 12:35 PM EDT LAB[facility] MCH 31.0 27.0 - 34.0 pg 12/19/2023 12:35 PM EDT LAB[facility] MCHC 33.5 32.0 - 36.0 g/dL 12/19/2023 12:35 PM EDT LAB[facility] RDW 12.9 11.5 - 15.5 % 12/19/2023 12:35 PM EDT LAB[facility] PLT 255 140 - 400 K/uL 12/19/2023 12:35 PM EDT LAB[facility] MPV 10.1 6.6 - 11.1 fL 12/19/2023 12:35 PM EDT [facility] nRBCs 0 <=0 /100 WBCs 12/19/2023 12:35 PM EDT [facility] Blood Venous blood specimen / Unknown Venipuncture / Unknown 12/19/2023 12:25 PM EDT 12/19/2023 12:30 PM EDT Dionicio Elmore MD LAB BLOOD ORDERA BLES LAB[facility]ATORY [facility] [address] [place] [address] * EXTRA LIGHT BLUE TOP (12/19/2023 12:25 PM EDT) Blood Venous blood specimen / Unknown Venipuncture / Unknown 12/19/2023 12:25 PM EDT 12/19/2023 12:30 PM EDT Dionicio Elmore MD LAB BLOOD ORDERA BLES Performing Organization Address [facility]/ZIP Co de Phone Number LABORATORY [address] [address] * TROPONIN T, HIGH SENSITIVITY (12/19/2023 12:25 PM EDT) Pathologist [facility] Troponin T, High Sensitivity 15 <=22 ng/L 12/19/2023 12:53 PM EDT LABORATORY [facility] Comment:Result may be falsel y decreased due to hemolysis. Blood Venous blood specimen / Unknown Venipuncture / Unknown 12/19/2023 12:25 PM EDT 12/19/2023 12:30 PM EDT Dionicio Elmore MD LAB BLOOD ORDERA BLES Performing Organization Address [facility] de Phone Number LABORATORY [address] [address] * (ABNORMAL) COMPREHENSIVE METABOLIC PANEL (12/19/2023 12:25 PM EDT) [facility] BUN 16 6 - 20 mg/dL 12/19/2023 12:54 PM EDT LABORATORY GL CREATININE 1.5(H) 0.6 - 1.2 mg/dL 12/19/2023 12:54 PM EDT LABORATORY GL EGFR 56(L) >=60 mL/min 12/19/2023 12:54 PM EDT LAB[facility] Comment:eGFR is calculated b ased on the CKD-EPI 2020 equation. SODIUM 136 135 - 146 mmol/L 12/19/2023 12:54 PM EDT LAB[facility]ORY [facility] POTASSIUM 4.3 3.5 - 5.1 mmol/L 12/19/2023 12:54 PM EDT LAB[facility] CHLORIDE 100 98 - 107 mmol/L 12/19/2023 12:54 PM EDT LAB[facility] CO2 19(L) 22 - 32 mmol/L 12/19/2023 12:54 PM EDT [facility] ANION GAP 17(H) 7 - 15 mmol/L 12/19/2023 12:54 PM EDT [facility] GLUCOSE 91 70 - 120 mg/dL 12/19/2023 12:54 PM EDT LAB[facility] Albumin 4.5 3.8 - 5.0 g/dL 12/19/2023 12:54 PM EDT [facility] AST 32 10 - 50 U/L 12/19/2023 12:54 PM EDT [facility] Comment:Results may be false ly elevated due to hemolysis. Alkaline Phosphatase 85 35 - 130 U/L 12/19/2023 12:54 PM EDT LAB[facility] Bilirubin, Total 0.5 <=1.2 mg/dL 12/19/2023 12:54 PM EDT LAB[facility] CALCIUM 9.9 8.4 - 10.2 mg/dL 12/19/2023 12:54 PM EDT [facility] Protein 7.9 6.0 - 8.3 g/dL 12/19/2023 12:54 PM EDT [facility] ALT 22 10 - 50 U/L 12/19/2023 12:54 PM EDT [facility] Blood Venous blood specimen / Unknown Venipuncture / Unknown 12/19/2023 12:25 PM EDT 12/19/2023 12:30 PM EDT Dionicio Elmore MD LAB BLOOD ORDERA BLES LABORATORY [facility] [address] [place] [address] documented in this encounter Visit Diagnoses Diagnosis Chest pain- Primary Chest pain, unspecified Chest pain Chest pain, unspecified Angina pectoris (HCC) Other and unspecified angina pectoris Lumbar radiculopathy Thoracic or lumbosacral neuritis or radiculitis, unspecified HTN, goal below 130/80 Unspecified essential hypertension HTN, goal below 130/80 Unspecified essential hypertension Type 2 diabetes mellitus without complication (HCC) Type II or unspecified type diabetes mellitus without mention of complication, not stated as uncontrolled TYRA (acute kidney injury) (HCC) Acute kidney failure, unspecified 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 aspirin chew tab 324 mg 324 mg, Oral, ONCE, On Lilliam 12/19/23 at 1515, For 1 dose Given 12/19/2023 2:48 PM EDT 324 mg atorvaSTATin (Lipitor) tab 10 mg 10 mg, Oral, Daily(AM), First dose on Sat12/20/23 at 0900, Until Discontinued Given 12/20/2023 10:11 AM EDT 10 mg Bisacodyl (Dulcolax) supp 10 mg 10 mg, Rectal, DAILY PRN Constipation, Starting on 12/22/23 at 1801, Until Sat12/20/23 at 1757, Administer if no bowel movement within past 72 hours and patient unable to take oral medications. Bisacodyl (Dulcolax) tab 5 mg 5 mg, Oral, DAILY PRN Constipation, Starting on [place]off 12/22/23 at 1801, Until Sat12/20/23 at 1757, Administer in addition to polyethylene glycol and senna-docusate if no bowel movement in past 72 hours. buPROPion extended release (SR) (Wellbutrin SR) tab 150 mg 150 mg, Oral, BID (.AM/PM), First dose on Lilliam 12/19/23 at 2100, Until Discontinued, [Therapeutic Interchange from Wellbutrin XL] Given 12/20/2023 10:12 AM EDT 150 mg Given 12/19/2023 9:32 PM EDT 150 mg citalopram (CeleXA) tab 40 mg 40 mg, Oral, Daily(AM), First dose on Sat12/20/23 at 0900, Until Discontinued Given 12/20/2023 10:12 AM EDT 40 mg dextrose 50% inj 25 mL 25 mL, IV Push, PRN Hypoglycemia, Other, For blood glucose 54 - 69 mg/dL or 70 - 100 mg/dL with symptoms AND patient is unresponsive, NPO, OR unable to swallow, Starting on Lilliam 12/19/23 at 1800, Until Sat12/20/23 at 1757, Administer IV. Recheck blood glucose after 15 minutes. Notify provider. dextrose 50% inj 50 mL 50 mL, IV Push, PRN Hypoglycemia, Other, For blood glucose below 54 mg/dL AND patient unresponsive, NPO, OR unable to swallow, Starting on Sat12/19/23 at 1800, Until Sat12/20/23 at 1757, Administer IV. Recheck blood glucose in 15 minutes. Notify provider. Enoxaparin (Lovenox) inj 40 mg 40 mg, Subcutaneous, Daily(AM), First dose on Sat12/20/23 at 0900, Until Discontinued, If patient is on warfarin, inform provider if daily INR value is 2 or greater! Given 12/20/2023 10:12 AM EDT 40 mg Abdomen Left Lower folic acid tab 1 mg 1 mg, Oral, Daily(AM), First dose on Sat12/20/23 at 0900, Until Discontinued Given 12/20/2023 10:11 AM EDT 1 mg glucagon (Glucagen) inj 1 mg 1 mg, Intramuscular, PRN Hypoglycemia, Other, If patient is unresponsive, or NPO and has no IV access, Starting on Sat12/19/23 at 1800, Until Sat12/20/23 at 1757, NPO and no IV access with either 1) blood glucose less than 100 mg/dL and symptomatic OR 2) blood glucose less than 70 mg/dL and asymptomatic Glucose (Glutose 15) 40 % gel 15 g of glucose 15 g of glucose, Oral, PRN Hypoglycemia (low sugar), Other, For blood glucose 54 - 69 mg/dL or 70 - 100 mg/dL with symptoms AND patient alert WITH difficulty chewing/swallowing, Starting on Sat12/19/23 at 1800, Until Sat12/20/23 at 1757, Administer gel. Recheck blood glucose after 15 minutes. Notify provider. 37.5 gram tube = 15 grams glucose = 1 each Glucose (Glutose 15) 40 % gel 30 g of glucose 30 g of glucose, Oral, PRN Hypoglycemia (low sugar), Other, For blood glucose below 54 mg/dL AND patient alert WITH difficulty chewing/swallowing, Starting on Sat12/19/23 at 1800, Until Sat12/20/23 at 1757, Administer gel. Recheck blood glucose after 15 minutes. Notify provider. 37.5 gram tube = 15 grams glucose = 1 each glucose chew tab 16 g 16 g, Oral, PRN Hypoglycemia, Other, For blood glucose 54 - 69 mg/dL or 70 - 100 mg/dL with symptoms and patient alert without difficulty chewing/swallowing., Starting on Sat12/19/23 at 1800, Until Sat12/20/23 at 1757 insulin aspart (NovoLOG) inj Subcutaneous, W/MEALS AND HS, First dose on Sat12/19/23 at 2200, Until Discontinued, LOW DOSE, Insulin sensitivity factor (ISF) = 50 (Elderly insulin sensitive patient) Serum blood sugar less than 70 mg/dl or symptomatic (obtain lab blood sugar and notify provider); 151 - 200 mg/dl (1 units); 201 - 250 mg/dl (2 units); 251 - 300 mg/dl (3 units); 301 - 350 mg/dl (4 units); 351 - 400 mg/dl (5 units); greater than 400 mg/dl (call provider) Correctional insulin may be given if the patient is NPO. Iopamidol (Isovue 370) inj 80 mL 80 mL, Intravenous, ONCE, On Sat12/19/23 at 1715, For 1 dose, Radiology Medication Routing (Non-IR) Given 12/19/2023 4:36 PM EDT 80 mL isolyte-S pH 7.4 infusion Intravenous, at 100 mL/hr, Plasma-LYTE 148, isolyte-S, and isolyte-S pH 7.4 are considered equivalent - including for MAR barcode scanning., CONTINUOUS, Starting on Sat12/19/23 at 1845, Until Sat12/20/23 at 0444 Rate Verify 12/20/2023 12:27 AM EDT 100 mL/hr Rate Verify 12/19/2023 8:17 PM EDT 100 mL/hr New Bag 12/19/2023 8:05 PM EDT 100 mL/hr melatonin tab 3 mg 3 mg, Oral, HS PRN Insomnia, Starting on Sat12/19/23 at 1801, Until Sat12/20/23 at 1757 Metoprolol Tartrate (Lopressor) tab 12.5 mg 12.5 mg, Oral, Daily(AM), First dose on Sat12/20/23 at 0900, Until Discontinued, Hold for HR less than 60 or SBP below 100 and notify service if dose is held Given 12/20/2023 10:12 AM EDT 12.5 mg naltrexone (Revia) tab 50 mg 50 mg, Oral, Daily(AM), First dose on Sat12/20/23 at 0900, Until Discontinued Given 12/20/2023 10:14 AM EDT 50 mg NSS 0.9% 1,000 mL bolus infusion Intravenous, at 1,000 mL/hr Administer over 60 Minutes, Administer entire volume within 60 minutes or less., ONCE, 1 dose, On Lilliam 12/19/23 at 1530 New Bag 12/19/2023 2:53 PM EDT 1,000 mL 1000 mL/hr omeprazole (PriLOSEC) cap 40 mg 40 mg, Oral, Daily(AM), First dose on Sat12/20/23 at 0900, Until Discontinued Given 12/20/2023 10:12 AM EDT 40 mg ondansetron (Zofran) inj 4 mg 4 mg, IV Push, Q6H PRN Nausea, Starting on Lilliam 12/19/23 at 1801, Until Sat12/20/23 at 1757 Polyethylene Glycol 3350 (Miralax) oral powder 17 g 17 g (1 Packet), Oral, DAILY PRN Constipation, Starting on Lilliam 12/19/23 at 1801, Until Sat12/20/23 at 1757, Administer if no bowel movement within past 24 hours. senna-docusate (Senokot-S) 1 Tablet 1 Tablet, Oral, BID PRN Constipation, Starting on Sat12/21/23 at 1801, Until Sat12/20/23 at 1757, Administer in addition to polyethylene glycol if no bowel movement within past 48 hours. sodium chloride 0.9 % flush/inj 3 mL 3 mL, IV Push, PRN Other, Line Patency, Starting on Lilliam 12/19/23 at 1800, Until Sat12/20/23 at 1757, Do not flush if lock, PICC, or central line not in place, IV infusing or unable to flush Thiamine (Vitamin B-1) tab 100 mg 100 mg, Oral, Daily(AM), First dose on Sat12/20/23 at 0900, Until Discontinued Given 12/20/2023 10:12 AM EDT 100 mg documented in this encounter Active and Recently Administered Medications Times are shown in EDT. Scheduled Medication Order 12/18/2023 12/19/2023 12/20/2023 aspirin chew tab 324 mg (COMPLETED) 324 mg, Oral, ONCE, On Sat12/19/23 at 1515, For 1 dose 1448 (Given - Provider: Mago Cox RN) atorvaSTATin (Lipitor) tab 10 mg 10 mg, Oral, Daily(AM), First dose on Sat12/20/23 at 0900, Until Discontinued 101 (Given - Provid er: Rani Estrada RN) buPROPion extended release (SR) (Wellbutrin SR) tab 150 mg 150 mg, Oral, BID (.AM/PM), First dose on Sat12/19/23 at 2100, Until Discontinued, [Therapeutic Interchange from Wellbutrin XL] 2131 (Given - Provider: Kingston Tomas LPN) 101 (Given - Provider: Rani Estrada RN) citalopram (CeleXA) tab 40 mg 40 mg, Oral, Daily(AM), First dose on Sat12/20/23 at 0900, Until Discontinued 101 (Given - Provid er: Rani Estrada RN) Enoxaparin (Lovenox) inj 40 mg 40 mg, Subcutaneous, Daily(AM), First dose on Sat12/20/23 at 0900, Until Discontinued, If patient is on warfarin, inform provider if daily INR value is 2 or greater! 1012 (Given - Provid er: Rani Estrada RN) folic acid tab 1 mg 1 mg, Oral, Daily(AM), First dose on Sat12/20/23 at 0900, Until Discontinued 101 (Given - Provid er: Rani Estrada RN) insulin aspart (NovoLOG) inj Subcutaneous, W/MEALS AND HS, First dose on Sat12/19/23 at 2200, Until Discontinued, LOW DOSE, Insulin sensitivity factor (ISF) = 50 (Elderly insulin sensitive patient) Serum blood sugar less than 70 mg/dl or symptomatic (obtain lab blood sugar and notify provider); 151 - 200 mg/dl (1 units); 201 - 250 mg/dl (2 units); 251 - 300 mg/dl (3 units); 301 - 350 mg/dl (4 units); 351 - 400 mg/dl (5 units); greater than 400 mg/dl (call provider) Correctional insulin may be given if the patient is NPO. 2200 (Not Given - Provider: Kingston Tomas LPN - Reason: Parameter(s) Not Met) 0800 (No Insulin - Provider: Rani Estrada RN - Reason: Parameter(s) Not Met)1200 (Not Given - Provider: Rani Estrada RN - Reason: Parameter(s) Not Met) Iopamidol (Isovue 370) inj 80 mL (COMPLETED) 80 mL, Intravenous, ONCE, On Lilliam 12/19/23 at 1715, For 1 dose, Radiology Medication Routing (Non-IR) 1636 (Given - Provider: Addy Saunders, RT (R)) Metoprolol Tartrate (Lopressor) tab 12.5 mg 12.5 mg, Oral, Daily(AM), First dose on Sat12/20/23 at 0900, Until Discontinued, Hold for HR less than 60 or SBP below 100 and notify service if dose is held 1012 (Given - Provid er: Rani Estrada RN) naltrexone (Revia) tab 50 mg 50 mg, Oral, Daily(AM), First dose on Sat12/20/23 at 0900, Until Discontinued 1014 (Given - Provid er: Rani Estrada RN) NSS 0.9% 1,000 mL bolus infusion (COMPLETED) Intravenous, at 1,000 mL/hr Administer over 60 Minutes, Administer entire volume within 60 minutes or less., ONCE, 1 dose, On Lilliam 12/19/23 at 1530 1453 (New Bag - Provider: Mago Cox RN)1557 (Stopped - Provider: Mago Cox RN) omeprazole (PriLOSEC) cap 40 mg 40 mg, Oral, Daily(AM), First dose on Sat12/20/23 at 0900, Until Discontinued 1012 (Given - Provid er: Rani Estrada RN) Thiamine (Vitamin B-1) tab 100 mg 100 mg, Oral, Daily(AM), First dose on Sat12/20/23 at 0900, Until Discontinued 1012 (Given - Provid er: Rani Estrada RN) Continuous Medication Order 12/18/2023 12/19/2023 12/20/2023 isolyte-S pH 7.4 infusion Intravenous, at 100 mL/hr, Plasma-LYTE 148, isolyte-S, and isolyte-S pH 7.4 are considered equivalent - including for MAR barcode scanning., CONTINUOUS, Starting on Sat12/19/23 at 1845, Until Sat12/20/23 at 0444 2004 (New Bag - Provider: Kingston Tomas LPN)2017 (Rate Verify - Provider: Kingston Tomas LPN) 0027 (Rate Verify - Provider: Kingston Tomas LPN)0550 (Stopped - Provider: Kingston Tomas LPN) PRN Medication Order 12/18/2023 12/19/2023 12/20/2023 Acetaminophen (Tylenol) tab 650 mg 650 mg, Oral, Q6H PRN Pain, Mild, Fever >38C(100.5F), Starting on Sat12/19/23 at 1801, Until Sat12/20/23 at 1757, Maximum of 4 grams (4000 mg) per day. Baclofen (Lioresal) tab 10 mg 10 mg, Oral, TID PRN Muscle spasms, Starting on Sat12/19/23 at 1759, Until Sat12/20/23 at 1757 Bisacodyl (Dulcolax) supp 10 mg(Linked Group 1) 10 mg, Rectal, DAILY PRN Constipation, Starting on Sat12/22/23 at 1801, Until Sat12/20/23 at 1757, Administer if no bowel movement within past 72 hours and patient unable to take oral medications. Bisacodyl (Dulcolax) tab 5 mg(Linked Group 1) 5 mg, Oral, DAILY PRN Constipation, Starting on Sat12/22/23 at 1801, Until Sat12/20/23 at 1757, Administer in addition to polyethylene glycol and senna-docusate if no bowel movement in past 72 hours. dextrose 50% inj 25 mL 25 mL, IV Push, PRN Hypoglycemia, Other, For blood glucose 54 - 69 mg/dL or 70 - 100 mg/dL with symptoms AND patient is unresponsive, NPO, OR unable to swallow, Starting on Lilliam 12/19/23 at 1800, Until Sat12/20/23 at 1757, Administer IV. Recheck blood glucose after 15 minutes. Notify provider. dextrose 50% inj 50 mL 50 mL, IV Push, PRN Hypoglycemia, Other, For blood glucose below 54 mg/dL AND patient unresponsive, NPO, OR unable to swallow, Starting on Sat12/19/23 at 1800, Until Sat12/20/23 at 1757, Administer IV. Recheck blood glucose in 15 minutes. Notify provider. glucagon (Glucagen) inj 1 mg 1 mg, Intramuscular, PRN Hypoglycemia, Other, If patient is unresponsive, or NPO and has no IV access, Starting on Sat12/19/23 at 1800, Until Sat12/20/23 at 1757, NPO and no IV access with either 1) blood glucose less than 100 mg/dL and symptomatic OR 2) blood glucose less than 70 mg/dL and asymptomatic Glucose (Glutose 15) 40 % gel 15 g of glucose 15 g of glucose, Oral, PRN Hypoglycemia (low sugar), Other, For blood glucose 54 - 69 mg/dL or 70 - 100 mg/dL with symptoms AND patient alert WITH difficulty chewing/swallowing, Starting on Sat12/19/23 at 1800, Until Sat12/20/23 at 1757, Administer gel. Recheck blood glucose after 15 minutes. Notify provider. 37.5 gram tube = 15 grams glucose = 1 each Glucose (Glutose 15) 40 % gel 30 g of glucose 30 g of glucose, Oral, PRN Hypoglycemia (low sugar), Other, For blood glucose below 54 mg/dL AND patient alert WITH difficulty chewing/swallowing, Starting on Sat12/19/23 at 1800, Until Sat12/20/23 at 1757, Administer gel. Recheck blood glucose after 15 minutes. Notify provider. 37.5 gram tube = 15 grams glucose = 1 each glucose chew tab 16 g 16 g, Oral, PRN Hypoglycemia, Other, For blood glucose 54 - 69 mg/dL or 70 - 100 mg/dL with symptoms and patient alert without difficulty chewing/swallowing., Starting on Sat12/19/23 at 1800, Until Sat12/20/23 at 1757 hydrOXYzine HCl tab 50 mg 50 mg, Oral, Q6H PRN Anxiety, Starting on Sat12/19/23 at 1758, Until Sat12/20/23 at 1757 melatonin tab 3 mg 3 mg, Oral, HS PRN Insomnia, Starting on Sat12/19/23 at 1801, Until Sat12/20/23 at 1757 ondansetron (Zofran) inj 4 mg 4 mg, IV Push, Q6H PRN Nausea, Starting on Lilliam 12/19/23 at 1801, Until Sat12/20/23 at 1757 Polyethylene Glycol 3350 (Miralax) oral powder 17 g(Linked Group 1) 17 g (1 Packet), Oral, DAILY PRN Constipation, Starting on Lilliam 12/19/23 at 1801, Until Sat12/20/23 at 1757, Administer if no bowel movement within past 24 hours. senna-docusate (Senokot-S) 1 Tablet(Linked Group 1) 1 Tablet, Oral, BID PRN Constipation, Starting on 12/21/23 at 1801, Until Sat12/20/23 at 1757, Administer in addition to polyethylene glycol if no bowel movement within past 48 hours. sodium chloride 0.9 % flush/inj 3 mL 3 mL, IV Push, PRN Other, Line Patency, Starting on Lilliam 12/19/23 at 1800, Until Sat12/20/23 at 1757, Do not flush if lock, PICC, or central line not in place, IV infusing or unable to flush Linked Groups Order Group 1: Polyethylene Glycol 3350 (Miralax) oral powder 17 gJump to med 17 g (1 Packet), Oral, DAILY PRN Constipation, Starting on Lilliam 12/19/23 at 1801, Until Sat12/20/23 at 1757, Administer if no bowel movement within past 24 hours. And senna-docusate (Senokot-S) 1 TabletJump to med 1 Tablet, Oral, BID PRN Constipation, Starting on 12/21/23 at 1801, Until Sat12/20/23 at 1757, Administer in addition to polyethylene glycol if no bowel movement within past 48 hours. And Bisacodyl (Dulcolax) tab 5 mgJump to med 5 mg, Oral, DAILY PRN Constipation, Starting on 12/22/23 at 1801, Until Sat12/20/23 at 1757, Administer in addition to polyethylene glycol and senna- docusate if no bowel movement in past 72 hours. And Bisacodyl (Dulcolax) supp 10 mgJump to med 10 mg, Rectal, DAILY PRN Constipation, Starting on 12/22/23 at 1801, Until 12/20/23 at 1757, Administer if no bowel movement within past 72 hours and patient unable to take oral medications. documented in this encounter Advance Directives * [...] Name Relationship Healthcare Agent Relationship Communication Douglas Karan Soria. Father Emergency Contact Care Teams Hall Worker Relationship Specialty Start Date End Date Aixa Booth PA-C [address] [phone] PCP - General Physician Garment Steamer 12/10/23 documented as of this encounter
--- OUTSIDE RECORDS SUMMARY | 2024-06-02 06:24 | External Medical Summary ---
Author Name Unknown Address Unknown Organization : Laboratory Report Ordering Provider Test Date Status ROSANA PLASENCIA 12/20/2023 07:10:22 Final Observation Date Value Abnormality Reference (Units ) Status Glucose Point of Care 12/20/2023 07:10:22 131 Above high normal 70-120 (mg/dL) Final Performing Location
--- OUTSIDE RECORDS SUMMARY | 2024-06-02 06:24 | External Medical Summary | Summary of Care ---
Author Name Unknown Organization [facility] Address [address] [place] [address] Phone [phone] Care Team Providers Care Iron Installer Name Role Phone Aixa Booth PA-C Primary Care Provider [phone] Reason for Visit * Auth/Cert Specialty Diagnoses / Procedures Referred By Anika t Referred To Contact [facility] [address] [place] [address] Phone: [phone] Emergency Medicine [facility] [address] [place] [address] Referral ID Status Reason Start Date Expiration Date Visits Re quested Visits Authorized [id number] Encounter Details Date Type Department Care Team (Latest Contact Info) Description 12/20/2023 7:39 AM EDT - 12/20/2023 11:59 PM EDT Hospital Encounter Cardiac Studies, [facility] [address] [place] [address] Discharge Disposition: Home - Self Care Allergies [...] 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, unspecified whether recurrent ([facility]) Take 1 Tablet by mouth every 6 [...] complication, without long-term current use of insulin ([facility]) Take 1 Tablet by mouth in the [...] taking differently: 25 mgOralDaily(AM), Reported on 12/19/2023 Lisinopril 40 MG Oral TabletIndications: HTN, goal [...] pain 12/19/2023 Food insecurity 06/25/2022 Overview: Per [facility] Protocol Alcohol withdrawal syndrome with complication [...] Next Due Pneumococcal Conjugate Vacci ne, 20-valent ([id number]) 05/28/2022 Seasonal Influenza Vac., MDV , IM, [...] as of this encounter Miscellaneous Notes * Ancillary Progress Note - Ana Robledo RN - 12/20/2023 7:40 AM EDT Dobutamine stress test complete. Pt may eat drink and have caffeine. documented in this encounter Plan of Treatment Upcoming Encounters Date Type Department Care Team (Late st Contact Info) Description 12/24/2023 9:00 AM EST Office Visit [facility] [address] [phone] Joey Barnes MD [address] [phone] 03/17/2024 8:00 AM EST Office Visit Cardiology, [place] [address] [phone] Leticia Shaw PA-C [address] [phone] 06/01/2024 10:20 AM EDT Office Visit Family Practice, [place] [address] [phone] Edgar Cardona MD [address] [phone] Scheduled Procedures Name Priority Associated Diagnoses Date/Ti [...] of 2) 11/01/2019 COVID-19 Vaccine ( - season) 2023 Influenza Vaccine (FLU shot) (#1) 2023 11/30/2013, 12/24/2012 Albumin/Creatinine Ratio 03/06/2024 03/06/2023 Depression Monitoring 03/06/2024 03/06/2023 Diabetic Foot Exam 03/06/2024 03/06/2023, 0 08/14/2021, 07/01/2020 HbA1c 06/17/2024 12/19/2023, 10/09/2022, 04/28/2022, Additional history exists B-12 07/02/2024 07/03/2023, [...] this encounter Medical Devices Implanted Type Area Buildings And Grounds Coordinator Device Identifier Shelf Expiration Date Model / Serial / Lot Concorde Proti 5 Dg, [id number] Implanted:Qty: 1 on 02/15/2022 by Ba Napoles MD at OR [facility] Cage N/A: Spine Lumbar [employer] 10/25/2025 [id number] / / [id number] Screw 7x55mm Implanted:Qty: 2 on 02/15/2022 by Ba Napoles MD at OR [facility] Screw N/A: Spine Lumbar [employer] [id number] / / Vivigen Mis Delivery System Pre-Filled Cannula With Cellular Bone Matrix (Processed By [employer], Exclusively Distributed By [employer]) Implanted:Qty: 1 on 02/15/2022 by Ba Napoles MD at OR [facility] N/A: Spine Lumbar LIFENET 01/05/2023 BL-1900-001 / [id number] / [id number] Vivigen Mis Delivery System Pre-Filled Cannula With Cellular Bone Matrix (Processed By [employer], Exclusively Distributed By [employer]) Implanted:Qty: 1 on 02/15/2022 by Ba Napoles MD at OR [facility] N/A: Spine Lumbar [employer]ENET 01/05/2023 -1900-001 / [id number] / [id number] Concorde Proti 5 Dg Implanted:Qty: 1 on 02/15/2022 by Ba Napoles MD at OR [facility] N/A: Spine Lumbar [employer] 06/03/2024 [id number] / / [id number] Screw [id number] Thr Maxtrix - [id number] Implanted:Qty: 2 on 02/15/2022 by Ba Napoles MD at OR [facility] N/A: Spine Lumbar SYNTHES : DEPUY [id number] / / Screw Matrx 7.0x50mm - [id number] Implanted:Qty: 2 on 02/15/2022 by Ba Napoles MD at OR [facility] N/A: Spine Lumbar JNJ : [employer] [id number] / / Cap Locking W/O Saddle Matrix - [id number] Implanted:Qty: 6 on 02/15/2022 by Ba Napoles MD at OR [facility] N/A: Spine Lumbar SYNTHES : DEPUY [id number] / / Head Poly Top Load Matrix - [id number] Implanted:Qty: 6 on 02/15/2022 by Ba Napoles MD at OR [facility] N/A: Spine Lumbar SYNTHES : DEPUY [id number] / / Pre Lordosed Anastacio W Line 75mm - [id number] Implanted:Qty: 2 on 02/15/2022 by Ba Napoles MD at OR [facility] N/A: Spine Lumbar JNJ : [employer] [id number] / / documented as of this encounter Procedures Procedure Name Priority Date/Time Associated Diagnosis Comments HC 2D TTE W OR W/O CONTR CONT ECG Routine 12/20/2023 8:24 AM EDT Angina pectoris (HCC) documented in this encounter Visit Diagnoses Diagnosis Chest pain, unspecified type- Primary documented in this encounter Administered Medications Inactive Administered Medications - up to 3 most recent administrations Medication Order MAR Action Action Date Dose Rate Site Atropine sulfate inj 0.4 mg 0.4 mg, IV Push, PRN Other, For Dobutamine Stress Only - Increasing Heart Rate to desired level (85% of predicted max), Starting on Sat12/20/23 at 0739, Until Sat12/21/23 at 0507, For 3 doses, May repeat up to 2mg total for Dobutamine Stress Only, Cardiac Studies_HODHOV Given 12/20/2023 8:27 AM EDT 0.4 mg Given 12/20/2023 8:26 AM EDT 0.4 mg DOBUTamine 250 mg in D5W 250 mL (peripheral) final conc 1000 mcg/mL Peripheral IV, 10 mcg/kg/min 94.3 kg (56.58 mL/hr), For Dobutamine Stress ONLY -- Start at 10 mcg/kg/min and titrate up to 40 mcg/kg/min in 3 min intervals., CONTINUOUS, Starting on Sat12/20/23 at 0815, Until Sat12/20/23 at 1014, Cardiac Studies_HODHOV New Bag 12/20/2023 8:25 AM EDT 10 mcg/kg/min 56.58 mL/hr Metoprolol Tartrate (Lopressor) inj 5 mg 5 mg, IV Push, Q5 MIN PRN Other, For Dobutamine Stress Only - For Hypertension, Tachycardia or Arrhythmias, Starting on Sat12/20/23 at 0739, Until Sat12/20/23 at 0938, For 2 hours, May repeat up to 10mg total for Dobutamine Stress Only, Cardiac Studies_HODHOV Given 12/20/2023 8:31 AM EDT 5 mg Given 12/20/2023 8:27 AM EDT 5 mg perflutren lipid microsphere inj SUSP 1.956 mg 1.956 mg, Intravenous, ONCE PRN Other, For Echo Only - Suboptimal Echo Images, Starting on Sat12/20/23 at 0739, Until Sat12/20/23 at 0938, For 2 hours, Administer IVP over 45 seconds, Cardiac Studies_HODHOV Given 12/20/2023 8:27 AM EDT 1.956 mg documented in this encounter Advance Directives * [...] Russo Sr. Father Emergency Contact Care Teams Iron Installer Relationship Specialty Start Date End Date Aixa Booth PA-C [address] [phone] PCP - General Physician Exhibition Specialist 12/10/23 documented as of this encounter
--- OUTSIDE RECORDS SUMMARY | 2024-06-02 06:25 | External Medical Summary ---
Author Name Unknown Address Unknown Organization K1F:LABORATORY [facility] - [address] [place] [address] [address] [address] Laboratory Report Ordering Provider Test Date Status REBA GUTIÉRREZ 12/19/2023 12:25:49 Final Observation Date Value Abnormality Reference (Units ) Status WBC, Total 12/19/2023 12:25:49 5.13 4.00-10.80 (K/uL) Final RBC 12/19/2023 12:25:49 4.48 4.50-5.25 (M/uL) Final Hemoglobin 12/19/2023 12:25:49 13.9 Below low normal 14.0-16.8 (g/dL) Final HCT 12/19/2023 12:25:49 41.5 40.0-48.4 (%) Final MCV 12/19/2023 12:25:49 92.6 82.0-99.5 (fL) Final MCH 12/19/2023 12:25:49 31.0 27.0-34.0 (pg) Final MCHC 12/19/2023 12:25:49 33.5 32.0-36.0 (g/dL) Final RDW 12/19/2023 12:25:49 12.9 11.5-15.5 (%) Final Platelets 12/19/2023 12:25:49 255 140-400 (K/uL) Final MPV 12/19/2023 12:25:49 10.1 6.6-11.1 (fL) Final Nucleated erythrocytes/100 leukocytes [Ratio] in Blood by Automated count 12/19/2023 12:25:49 0 <=0 (/100 WBCs) Final Performing Location LABORATORY [facility] - [address] [place] [place] [address]
--- OUTSIDE RECORDS SUMMARY | 2024-06-02 06:25 | External Medical Summary ---
Author Name Unknown Address Unknown Organization K01:LABORATORY [facility] - [address] [place] [address] Laboratory Report Ordering Provider Test Date Status PRUDENCIO STOKES 12/19/2023 17:43:00 Final Observation Date Value Abnormality Reference (Units ) Status Triglyceride 12/19/2023 17:43:00 51 <=174 ( mg/dL) Final Triglyceride Reference Range s (mg/dL):
<150 Acceptable
150-174 Borderline high
175-499 High
>=500 Very high Cholesterol 12/19/2023 17:43:00 122 <200 (mg /dL) Final Total Cholesterol Reference Ranges (mg/dL):
<200 Desirable
200-239 Borderline high
>=240 High HDL 12/19/2023 17:43:00 74 >39 (mg/dL ) Final HDL Cholesterol Reference Ra nges (mg/dL):
>=60 High (Desirable)
<50 Low (Undesirable) For Females
<40 Low (Undesirable) For Males NON-HDL CHOLESTEROL 12/19/2023 17:43:00 48 <=159 (mg/dL) Final Non-HDL Cholesterol Referenc e Range (mg/dL):
<100 Target level for high risk ASCVD patient
<130 Optimal for general population
130-159 Near optimal for general population
160-189 Borderline High
190-219 High
>=220 Very High LDL, (calculated) 12/19/2023 17:43:00 38 <= 129 (mg/dL) Final LDL Cholesterol Reference Ra nges (mg/dL):
<70 Target level for high risk ASCVD patient
<100 Optimal for general population
100-129 Near optimal for general population
130-159 Borderline high
160-189 High
>=190 Very high Performing Location LABORATORY [facility] - [address] [place] [address]
--- OUTSIDE RECORDS SUMMARY | 2024-06-02 06:25 | External Medical Summary ---
Author Name Unknown Address Unknown Organization K1F:LABORATORY [facility] - [address] [address] Laboratory Report Ordering Provider Test Date Status REBA GUTIÉRREZ 12/19/2023 12:25:49 Final Collect NOW Observation Date Value Abnormality Reference (Units ) Status Troponin T 12/19/2023 12:25:49 15 <=22 (ng/ L) Final Result may be falsely decrea sed due to hemolysis. Performing Location LABORATORY [facility] - [address] [address]
--- OUTSIDE RECORDS SUMMARY | 2024-06-02 06:25 | External Medical Summary ---
Author Name Unknown Address Unknown Organization K1F:LABORATORY [facility] - [address] [place] [address] Laboratory Report Ordering Provider Test Date Status REBA GUTIÉRREZ 12/19/2023 12:25:49 Final Observation Date Value Abnormality Reference (Units ) Status SYNC LEUKOCYTES IN BLOOD BY AUTOMATED COUNT 12/19/2023 12:25:49 5.13 4.00-10.80 (K/uL) Final Segs 12/19/2023 12:25:49 41.9 40.0-75.0 (%) Final Lymphs % 12/19/2023 12:25:49 33.7 18.0-42.0 (%) Final Monos 12/19/2023 12:25:49 17.7 Above high normal 1.0-11.0 (%) Final Eosinophils 12/19/2023 12:25:49 4.9 0.0-6.0 (%) Final Basos 12/19/2023 12:25:49 1.6 0.0-2.0 (%) Final Immature Granulocyte, Percent 12/19/2023 12:25:49 0.2 0.0-2.0 (%) Final Absolute Segs 12/19/2023 12:25:49 2.15 1.80-7.70 (K/uL) Final Lymphs, absolute 12/19/2023 12:25:49 1.73 1.00-4.80 (K/ul) Final Monos, Abs 12/19/2023 12:25:49 0.91 0.00-1.10 (K/uL) Final Eos, Abs 12/19/2023 12:25:49 0.25 0.00-0.70 (K/uL) Final Basos, Abs 12/19/2023 12:25:49 0.08 0.00-0.20 (K/uL) Final Immature Granulocytes, Number 12/19/2023 12:25:49 0.01 0.00-0.20 (K/uL) Final Performing Location LABORATORY [facility] - [address] [place] [address]
--- OUTSIDE RECORDS SUMMARY | 2024-06-02 06:25 | External Medical Summary ---
Author Name Unknown Address Unknown Organization K1F:LABORATORY [facility] - [address] [place] [address] Laboratory Report Ordering Provider Test Date Status PRUDENCIO STOKES 12/20/2023 03:19:35 Final Observation Date Value Abnormality Reference (Units ) Status Color of Urine by Auto 12/20/2023 03:19:35 Yellow Light Yellow, Yellow, Dark Yellow Final Clarity, Urine 12/20/2023 03:19:35 Clear Clear Final Glucose [Mass/volume] in Urine by Automated test strip 12/20/2023 03:19:35 Negative Negative (mg/dL) Final Bilirubin.total [Presence] in Urine by Automated test strip 12/20/2023 03:19:35 Negative Negative Final Ketones [Mass/volume] in Urine by Automated test strip 12/20/2023 03:19:35 Negative Negative (mg/dL) Final Specific gravity, Urine 12/20/2023 03:19:35 1.014 1.003-1.030 Final Hemoglobin [Presence] in Urine by Automated test strip 12/20/2023 03:19:35 Negative Negative Final pH, Urine 12/20/2023 03:19:35 5.5 5.0-7.5 (Units) Final Protein [Mass/volume] in Urine by Automated test strip 12/20/2023 03:19:35 Negative Negative (mg/dL) Final Urobilinogen [Mass/volume] in Urine by Automated test strip 12/20/2023 03:19:35 0.2 0.2, 1.0 (mg/dL) Final Nitrite [Presence] in Urine by Automated test strip 12/20/2023 03:19:35 Negative Negative Final Leukocyte esterase [Presence] in Urine by Automated test strip 12/20/2023 03:19:35 Negative Negative Final RBC, Urine 12/20/2023 03:19:35 0-2 0-2 (/HPF) Final WBC, Urine 12/20/2023 03:19:35 0-2 0-2 (/HPF) Final Bacteria [#/area] in Urine sediment by Microscopy high power field 12/20/2023 03:19:35 0-25 0-25 (/HPF) Final CULTURE, URINE - ISINGER 12/20/2023 03:19:35 Final Culture not indicated by uri nalysis results\X09\ Performing Location LABORATORY [address] [facility] [address]
--- OUTSIDE RECORDS SUMMARY | 2024-06-02 06:25 | External Medical Summary ---
Author Name Unknown Address Unknown Organization K1F:LABORATORY [facility] - [address] [place] [address] [address] [place] [address] Laboratory Report Ordering Provider Test Date Status REBA GUTIÉRREZ 12/19/2023 12:25:49 Final Rheumatoid factor at a level above 50 [...] definitively correlate with clinical severity of disease. Observation Date Value Abnormality Reference (Units ) Status Fibrin D-dimer FEU [Mass/volume] in Platelet poor plasma by Immunoassay 12/19/2023 12:25:49 0.78 Above high normal <0.50 (ug/mL FEU) Final Performing Location LABORATORY [facility] - [address] [facility] [address] [place] [address]
--- OUTSIDE RECORDS SUMMARY | 2024-06-02 06:25 | External Medical Summary ---
Author Name Unknown Address Unknown Organization K1F:LABORATORY [facility] - [address] [place] [address] Laboratory Report Ordering Provider Test Date Status REBA GUTIÉRREZ 12/19/2023 13:27:00 Final Collect 1 HOUR Observation Date Value Abnormality Reference (Units ) Status Troponin T 12/19/2023 13:27:00 13 <=22 (ng/ L) Final Performing Location LABORATORY [facility] - [address] [address]
--- OUTSIDE RECORDS SUMMARY | 2024-06-02 06:25 | External Medical Summary ---
Author Name Unknown Address Unknown Organization K1F:LABORATORY [facility] - [address] [place] [address] Laboratory Report Ordering Provider Test Date Status REBA GUTIÉRREZ 12/19/2023 13:27:00 Final Exclude Heart Failure: <300 pg/mL
Diagnose Heart Failure:
Age <50 yr: >450 pg/mL
50-75 yr: >900 pg/mL
>75 yr: >1800 pg/mL
GFR is 30-59 mL/min: >1200 pg/mL or Age- adjusted values
GFR <30 mL/min: do not use, not reliable

Prognostic threshold: 1000 pg/mL Observation Date Value Abnormality Reference (Units ) Status BNP, Pro-hormone 12/19/2023 13:27:00 119 <30 0 (pg/mL) Final Performing Location LABORATORY [facility] - [address] [place] [address]
--- OUTSIDE RECORDS SUMMARY | 2024-06-02 06:25 | External Medical Summary ---
Author Name Unknown Address Unknown Organization K1F:LABORATORY [facility] - [address] [place] [address] [address]. [address] [place] [address] Laboratory Report Ordering Provider Test Date Status PRUDENCIO STOKES 12/20/2023 05:34:00 Final Observation Date Value Abnormality Reference (Units ) Status WBC, Total 12/20/2023 05:34:00 3.51 Below low normal 4.00-10.80 (K/uL) Final RBC 12/20/2023 05:34:00 3.70 4.50-5.25 (M/uL) Final Hemoglobin 12/20/2023 05:34:00 11.8 Below low normal 14.0-16.8 (g/dL) Final HCT 12/20/2023 05:34:00 34.9 Below low normal 40.0-48.4 (%) Final MCV 12/20/2023 05:34:00 94.3 82.0-99.5 (fL) Final MCH 12/20/2023 05:34:00 31.9 27.0-34.0 (pg) Final MCHC 12/20/2023 05:34:00 33.8 32.0-36.0 (g/dL) Final RDW 12/20/2023 05:34:00 13.0 11.5-15.5 (%) Final Platelets 12/20/2023 05:34:00 183 140-400 (K/uL) Final MPV 12/20/2023 05:34:00 9.9 6.6-11.1 (fL) Final Nucleated erythrocytes/100 leukocytes [Ratio] in Blood by Automated count 12/20/2023 05:34:00 0 <=0 (/100 WBCs) Final Performing Location LABORATORY [facility] - [address] [place] [address]
--- OUTSIDE RECORDS SUMMARY | 2024-06-02 06:25 | External Medical Summary ---
Author Name Unknown Address Unknown Organization K1F:LABORATORY [facility] - [address] [place] [address] Laboratory Report Ordering Provider Test Date Status REBA GUTIÉRREZ 12/19/2023 12:25:49 Final Observation Date Value Abnormality Reference (Units ) Status BUN 12/19/2023 12:25:49 16 6-20 (mg/dL) Final Creatinine 12/19/2023 12:25:49 1.5 Above high normal 0.6-1.2 (mg/dL) Final Glomerular filtration rate/1.73 sq M.predicted [Volume Rate/Area] in Serum, Plasma or Blood by Creatinine-based formula (CKD-EPI) 12/19/2023 12:25:49 56 Below low normal >=60 (mL/min) Final eGFR is calculated based on the CKD-EPI 2020 equation. Sodium 12/19/2023 12:25:49 136 135-146 (m mol/L) Final Potassium 12/19/2023 12:25:49 4.3 3.5-5.1 (m mol/L) Final Cl 12/19/2023 12:25:49 100 98-107 (mm ol/L) Final CO2 12/19/2023 12:25:49 19 Below low normal 22- 32 (mmol/L) Final Anion gap 12/19/2023 12:25:49 17 Above high normal 7- 15 (mmol/L) Final Glucose 12/19/2023 12:25:49 91 70-120 (mg /dL) Final Albumin 12/19/2023 12:25:49 4.5 3.8-5.0 (g /dL) Final AST (Aspartate aminotransferase) 12/19/2023 12:25:49 32 10-50 (U/L) Fin al Results may be falsely eleva tj due to hemolysis. Alk Phos 12/19/2023 12:25:49 85 35-130 (U/ L) Final Bilirubin, Total 12/19/2023 12:25:49 0.5 <=1 .2 (mg/dL) Final Calcium 12/19/2023 12:25:49 9.9 8.4-10.2 ( mg/dL) Final Protein 12/19/2023 12:25:49 7.9 6.0-8.3 (g /dL) Final ALT (Alanine aminotransferase) 12/19/2023 12:25:49 22 10-50 (U/L) Final Performing Location LABORATORY [facility] [address] [place] [address]
--- OUTSIDE RECORDS SUMMARY | 2024-06-02 06:25 | External Medical Summary ---
Author Name Unknown Address Unknown Organization K1F:LABORATORY [facility] - [address] [place] [address] Laboratory Report Ordering Provider Test Date Status PRUDENCIO STOKES 12/20/2023 05:34:00 Final Observation Date Value Abnormality Reference (Units ) Status BUN 12/20/2023 05:34:00 13 6-20 (mg/dL) Final Creatinine 12/20/2023 05:34:00 1.4 Above high normal 0.6-1.2 (mg/dL) Final Glomerular filtration rate/1.73 sq M.predicted [Volume Rate/Area] in Serum, Plasma or Blood by Creatinine-based formula (CKD-EPI) 12/20/2023 05:34:00 62 >=60 (mL/min) Final eGFR is calculated based on the CKD-EPI 2020 equation. Sodium 12/20/2023 05:34:00 141 135-146 (m mol/L) Final Potassium 12/20/2023 05:34:00 4.7 3.5-5.1 (m mol/L) Final Cl 12/20/2023 05:34:00 107 98-107 (mm ol/L) Final CO2 12/20/2023 05:34:00 24 22-32 (mmo l/L) Final Anion gap 12/20/2023 05:34:00 10 7-15 (mmol /L) Final Glucose 12/20/2023 05:34:00 118 70-120 (mg /dL) Final Calcium 12/20/2023 05:34:00 9.2 8.4-10.2 ( mg/dL) Final Performing Location LABORATORY [facility] - [address] [facility] [address] [place] [address]
--- OUTSIDE RECORDS SUMMARY | 2024-06-02 06:25 | External Medical Summary ---
Author Name Unknown Address Unknown Organization K01:[facility] [place] [address] [facility] [address] [place] [address] Laboratory Report Ordering Provider Test Date Status PRUDENCIO STOKES 12/19/2023 12:25:49 Final Observation Date Value Abnormality Reference (Units ) Status HbA1C 12/19/2023 12:25:49 6.1 Above high normal 4. 0-5.6 (%) Final The use of HbA1c to monitor glycemic status is based on normal hemoglobin and HbA composition. This test should not be used in patients with abnormal hemoglobin that affects the half life of the red blood cell or the in vivo glycation rates. Glucose, estimated average 12/19/2023 12:25:49 128 Above high normal <126 (mg/dL) Marc fontana Performing Location [facility] [place] [address] [address]
--- OUTSIDE RECORDS SUMMARY | 2024-06-02 06:25 | External Medical Summary ---
Author Name Unknown Address Unknown Organization : Laboratory Report Ordering Provider Test Date Status DHRUV PEREZ 12/19/2023 21:02:20 Final Observation Date Value Abnormality Reference (Units ) Status Glucose Point of Care 12/19/2023 21:02:20 100 70-120 (mg/dL) Final Performing Location
--- OUTSIDE RECORDS SUMMARY | 2024-06-02 06:25 | External Medical Summary ---
Author Name Unknown Address Unknown Organization K1F:LABORATORY [facility] - [address] [place] [address] Laboratory Report Ordering Provider Test Date Status REBA GUTIÉRREZ 12/19/2023 14:53:00 Final Observation Date Value Abnormality Reference (Units ) Status Troponin T 12/19/2023 14:53:00 12 <=22 (ng/ L) Final Result may be falsely decrea sed due to hemolysis. Performing Location LABORATORY [facility] - [address] [place] [address]
--- OUTSIDE RECORDS SUMMARY | 2024-06-02 06:25 | External Medical Summary ---
Author Name Unknown Address Unknown Organization [facility] [address] [id number] Laboratory Report Ordering Provider Test Date Status REBA GUTIÉRREZ 12/19/2023 13:27:00 Final Observation Date Value Abnormality Reference (Units ) Status Lipase 12/19/2023 13:27:00 38 13-60 (U/L ) Final Performing Location [facility] [address] [place] [id number]
--- NOTE | 2024-06-02 07:22 | Emergency Department Note ---
ED Visit Note Patient is a 53-year-old male brought in by family as he has been more anxious and depressed recently. He was drinking alcohol. He was seen and evaluated by Dr. Rivera and cleared pending sobriety around 7 AM with an alcohol initially around 317. Per report by family friend son was recently killed and that has sparked his anxiety and depression and he has been more tearful. Currently being evaluated by her psychiatric care managers for further disposition. Labs showed no significant leukocytosis or anemia. BMP along with LFTs bilirubin and TSH was remarkable for slightly elevated sugar. UA was clean. Patient started to withdrawal. He was given Librium and Ativan. Discussed with care managers and they recommended admission for placement in detox. Patient was given Librium orally and given IV Ativan for withdrawal. After discussion with the upper caser patient was discussed with the hospitalist for further evaluation management and treatment and admission as it was felt that it would not be safe to discharge him with his withdrawal symptoms currently. .
[2024-06-02] MEDS: chlordiazePOXIDE HCl 25 MG CAP PO ONE (08:36)
[2024-06-02] MEDS: LORazepam 2 MG/1 ML VIAL IV STA ×2 (09:08→10:34)
[2024-06-02] MEDS: LORazepam 1 MG TAB SL STA (09:09)
--- NOTE | 2024-06-02 11:08 | History & Physical Report ---
Date of Service June 02, 2024 Assessment & Plan (1) Alcohol withdrawal syndrome with perceptual disturbance: (2) Alcohol intoxication: (3) Alcohol dependence, daily use: (4) Diabetes mellitus, type 2: (5) PTSD (post-traumatic stress disorder): (6) Anxiety: (7) Depression: (8) Hypertension: Plan Patient is a 53-year-old gentleman who is critically ill with alcohol withdrawal symptoms in the setting of chronic alcohol misuse severe depression and posttraumatic stress disorder. He is at high risk for severe withdrawal symptoms including seizures and delirium tremens. Anxiety medications and monitoring. Admit to monitored setting Scheduled gabapentin taper As needed lorazepam for withdrawal symptoms Consult psychiatry Continue home medications for hypertension Monitor glucose with short acting insulin for glucose control Case management to help with possible admission to dual diagnosis rehab center. History of Present Illness Chief Complaint: Severe depression, alcohol misuse and family concern for his mental health. Primary Care Provider: Edgar Cardona MD Patient is a 53-year-old gentleman with known history of alcohol misuse along with anxiety, severe depression and posttraumatic stress disorder. Brought to the emergency room by family because they are extremely concerned about his m ental health and possibly some concerns that he may have some suicidal ideation. When he first presented to the emergency room he was intoxicated on alcohol. His initial evaluation with an plan was to be cleared for sobriety and then hopefully be placed at a dual diagnosis rehab facility where he can address his mental health issues as well as his alcohol addiction. However, before the patient could be fully cleared for sobriety patient started have some significant withdrawal symptoms. He received Librium and Ativan here in the ED. This would disqualify him for direct admission to rehab facility and was referred to our service for a medical admission. Time my evaluation the patient is fairly calm. Has just received some lorazepam. He absolutely denies any suicidal ideation at this time. He states that is really his anxiety, severe depression and posttraumatic stress disorder that he struggles with. Apparently he had some significant emotional and psychological trauma in the past that is difficult for him to deal with. He is dealt with this mostly by drinking alcohol. He states he consumes at least 0.5 L of vodka daily. He will also occasionally have some beers. He denies any fever or chills, no cough or cold symptoms, no chest pain, no shortness of breath. He states has been eating and drinking well. No new problems with the bowels or bladder. No new swelling in his hands arms legs or feet and no significant joint pains. He does admit to occasional marijuana use but no other illicit drug use. He is interested in getting rehab and addressing his alcohol addiction as well as his mental health issues. Allergies Allergy/AdvReac Type Severity Reaction Status Date / Time bee venom protein (honey bee) Allergy Severe Anaphylaxis Verified 08/09/21 09:34 Home Medications Medication Instructions Recorded Confirmed Type amitriptyline 10 mg tablet 10 mg PO QAM 12/01/18 08/09/21 History citalopram 20 mg tablet 20 mg PO QAM 12/01/18 08/09/21 History cyclobenzaprine 10 mg tablet 10 mg PO TID PRN Spasms 12/01/18 08/09/21 History epinephrine 0.3 mg/0.3 mL 0.3 mg IM Q3H PRN Allergic Reaction 12/01/18 08/09/21 History injection, auto-injector lisinopril 20 mg tablet 20 mg PO QAM 12/01/18 08/09/21 History melatonin 5 mg tablet 5 mg PO HS PRN Insomnia 12/01/18 08/09/21 History meloxicam 15 mg tablet 15 mg PO QAM 12/01/18 08/09/21 History metformin 500 mg tablet 500 mg PO DAILYBD 12/01/18 08/09/21 History omeprazole 40 mg capsule,delayed 40 mg PO QAM 12/01/18 08/09/21 History release tramadol 50 mg tablet (Ultram) 50 mg PO Q4H PRN pain #15 tabs 08/17/20 08/09/21 Rx Past Med/Surg History Problem List (Updated 06/02/24 @ 11:07 by Yang Reeves DO) PTSD (post-traumatic stress disorder) Alcohol withdrawal syndrome with perceptual disturbance Alcohol abuse (Acute) Alcohol intoxication (Acute) Anxiety (Acute) Depression (Acute) Encounter for pre-operative examination No significant past surgical history Chronic low back pain Chronic neck pain Medical History (Updated 06/02/24 @ 11:07 by Yang Reeves DO) Alcohol dependence, daily use 3-12 drinks daily Barretts esophagus Diabetes mellitus, type 2 NIDDM Anxiety Hypertension Depression Surgical History History of carpal tunnel surgery of right wrist History of cholecystectomy History of hernia surgery x2 in childhood History of colonoscopy History of esophagogastroduodenoscopy (EGD) History of tooth extraction partial upper denture Family History Other No family history of adverse response to anesthesia No pertinent family history in first degree relatives Social History Smoking Status: Never smoker Second Hand Exposure: No; Do You Dip or Chew Tobacco: No; Hx Alcohol Use: Yes Alcohol type: beer and hard liquor Hx Substance Use: Yes (smokes marijuana (advised on policy)) Preferred Language: Italian Communication Ability: Effective Managed Care Provider Required: No Beliefs That Will Affect Care: None marital status: Single Current Living Situation: Alone current occupational status: employed Feels Safe at Home: Yes Gender Identity: Male Assistive Devices: None Review of Systems Review of Systems: Pertinent positive and negative review of systems as mentioned in the HPI Physical Exam Physical Exam: Constitutional: Alert, nontoxic HEENT: Mucous membranes moist. Sclera clear Neck: Soft, no adenopathy Lungs: Clear to auscultation, decreased, no wheezes rales or rhonchi CV: S1-S2, regular, tachycardic Abdomen: Soft, nontender, nondistended Extremities: No significant edema Musculoskeletal: No significant joint tenderness Neuro: No focal deficits, mild tremor Psych: Cooperative, anxious, depressed Results & Data Results & Data Vital Signs (Past 12 Hours) Vital Signs Temp Pulse Pulse Resp BP BP Pulse Ox 06/02/24 10:33 83 22 94 06/02/24 10:30 139/94 06/02/24 10:15 79 17 97 06/02/24 10:06 87 24 95 06/02/24 10:06 75 06/02/24 10:00 143/93 H 06/02/24 09:07 87 20 143/95 H 98 06/02/24 09:07 86 14 143/95 H 97 06/02/24 08:48 36.5 C 78 20 158/88 H 97 06/02/24 06:35 85 18 128/78 94 06/02/24 05:28 73 06/02/24 04:45 62 20 121/94 95 06/02/24 02:42 78 18 121/94 92 06/02/24 01:23 76 06/02/24 00:55 73 18 130/82 92 06/01/24 23:06 36.8 C 126 H 20 138/90 93 O2 Del Method 06/02/24 10:33 Room Air 06/02/24 10:30 06/02/24 10:15 Room Air 06/02/24 10:06 Room Air 06/02/24 10:06 06/02/24 10:00 06/02/24 09:07 06/02/24 09:07 Room Air 06/02/24 08:48 Room Air 06/02/24 06:35 06/02/24 05:28 06/02/24 04:45 Room Air 06/02/24 02:42 Room Air 06/02/24 01:23 06/02/24 00:55 Room Air 06/01/24 23:06 Room Air Diagnostic Findings Reviewed imaging, laboratory and diagnostic studies. Pertinent findings as below. WBCs 4.5 Hemoglobin 10.0 Platelets of 230 Electrolytes stable Creatinine 1.05 Glucose of 193 AST 51 TSH 2.4 Urinalysis unremarkable Initial alcohol level 317 Other urine drug screen negative Personally reviewed EKG, sinus rhythm, no acute ST-T wave changes Code Status & VTE Plan VTE Prophylaxis Plan VTE Prophylaxis will be ordered: Yes
--- NOTE | 2024-06-02 11:45 | Electrocardiogram Report ---
Test Reason : Blood Pressure : */* mmHG Vent. Rate : 89 BPM Atrial Rate : 89 BPM P-R Int : 170 ms QRS Dur : 90 ms QT Int : 342 ms P-R-T Axes : 30 0 40 degrees QTcB Int : 416 ms Normal sinus rhythm Normal ECG When compared with ECG of 09-Aug-2021 12:56, No significant change was found Confirmed by Hugo Lan ([id number]) on 06/02/2024 11:44:38 AM Referred By: REFERRED SELF Confirmed By: Hugo Lan
[2024-06-02] MEDS ORDERED: GLUCAGON FOR INJ 1 MG VIAL SQ PRN (12:33)
[2024-06-02] MEDS ORDERED: ALUMINUM/MAGNESIUM SUSP 30 ML UDC PO PRN (12:33)
[2024-06-02] MEDS ORDERED: traMADol HCL 50 MG TABLET PO PRN (12:33)
[2024-06-02] MEDS ORDERED: ACETAMINOPHEN 325 MG TAB PO PRN (12:33)
[2024-06-02] MEDS ORDERED: Ativan PO Alcohol Withdrawal--Active Protocol PO PRN (12:33)
[2024-06-02] MEDS ORDERED: LORazepam 2 MG/1 ML VIAL IV PRN ×3 (12:33)
[2024-06-02] MEDS ORDERED: GLUCOSE 10 TAB/TUBE PO PRN (12:33)
[2024-06-02] MEDS ORDERED: CARBOHYDRATES FOR HYPOGLYCEMIA PO PRN (12:33)
[2024-06-02] MEDS ORDERED: DEXTROSE 50% 50 ML SYRINGE IV PRN (12:33)
[2024-06-02] MEDS ORDERED: GABAPENTIN 1200MG ALCOHOL WITHDRAWAL LOAD PO STA (12:33)
[2024-06-02] MEDS ORDERED: Ativan IV Alcohol Withdrawal--Active Protocol IV PRN (12:33)
[2024-06-02] MEDS ORDERED: GLUCOSE 40% GEL 15 GM TUBE PO PRN (12:33)
[2024-06-02] MEDS ORDERED: LORazepam 1 MG TAB PO PRN ×2 (12:33)
[2024-06-02] MEDS: THIAMINE HCL 100 MG TAB PO SCH (15:43)
[2024-06-02] MEDS: FOLIC ACID 1 MG TAB PO SCH (15:43)
[2024-06-02] MEDS: ENOXAPARIN INJ 40 MG/0.4 ML SYR SQ SCH (15:43)
[2024-06-02] MEDS: GABAPENTIN 600 MG TAB PO ONE (15:44)
[2024-06-02] MEDS: INSULIN ASPART PER UNIT CHARGE SC SCH (15:55)
[2024-06-02] MEDS: LORazepam 1 MG TAB PO PRN (16:01)
[2024-06-02] MEDS: GABAPENTIN 600 MG TAB PO SCH (18:32)
[2024-06-03] MEDS: GABAPENTIN 600 MG TAB PO SCH (06:20)
[2024-06-03 07:59] LABS: Hematocrit (blood only) 39.3 % (42.0-52.0); Hemoglobin 13.7 g/dl (14.0-18.0); Mean Corpuscular Hemoglobin 31.4 pg (25.0-34.0); Mean Corpuscular Hgb Conc 34.9 g/dL (32.0-36.0); Mean Corpuscular Volume 89.9 fL (80.0-100.0); Mean Platelet Volume 9.5 fL (9.4-12.4); Platelet Count 142 K/uL (130-400); RDW Coefficient of Variation 12.5 % (11.5-14.5); RDW Standard Deviation 41.4 fL (36.4-46.3); Red Blood Count 4.37 M/uL (4.70-6.10); White Blood Count 3.75 K/ul (4.8-10.8)
[2024-06-03 08:29] LABS: Calcium 9.4 mg/dl (8.6-10.3); Magnesium 1.6 mg/dl (1.7-2.4); Potassium 4.1 mmol/L (3.5-5.1)
[2024-06-03 08:35] LABS: Creatinine Clr Calc Pharmacy 88.7 ml/min; Phosphorus 3.1 mg/dl (2.5-4.9)
[2024-06-03] MEDS: CITALOPRAM 20 MG TAB PO SCH (09:10)
[2024-06-03] MEDS: lisinopril 20 MG TAB PO SCH (09:11)
[2024-06-03] MEDS: PANTOprazole 40 MG TAB PO SCH (09:11)
[2024-06-03] MEDS: AMITRIPTYLINE HCL 10 MG TAB PO SCH (09:11)
[2024-06-03 10:24] LABS: Estimated Average Glucose 169 mg/dl; Hemoglobin A1C 7.5 % (4.5-5.6)
--- NOTE | 2024-06-03 11:21 | Hospitalist Progress Note ---
<Statement entered by Yang Reeves, DO - 06/03/24 15:10> I have seen and examined the patient and have discussed the case with the advance practice provider. I have reviewed the advanced practitioner's documentation, and I agree with, and take responsibility for that plan of care. Patient much more positive with his affect and attitude today. Nursing reports minimal needs for as needed lorazepam Communication with psychiatry, agrees with attempts to place in a dual diagnosis program Continue to monitor for alcohol withdrawal Case management aware of plans as well Discussed plan of care as outlined below I spent a total of 15 minutes coordinating, documenting, and providing care for this patient excluding time spent by another provider/QHP. Date of Service June 03, 2024 Assessment & Plan (1) Alcohol withdrawal syndrome with perceptual disturbance: (2) Alcohol intoxication: (3) Alcohol dependence, daily use: (4) Diabetes mellitus, type 2: (5) PTSD (post-traumatic stress disorder): (6) Anxiety: (7) Depression: (8) Hypertension: Plan Patient is a 53-year-old gentleman who was initially critically ill with alcohol withdrawal symptoms in the setting of chronic alcohol misuse, severe depression and posttraumatic stress disorder. His other PMH include T2DM, HTN, GERD & Barretts Esophagus. He is at high risk for severe withdrawal symptoms including seizures and delirium tremens. Anxiety medications and monitoring. Pt admitted to tele overnight He currently is no longer exhibiting and s/sx of withdrawal He feels well this morning, denies SI/HI Does admit to significant depression and PTSD which is a trigger for his alcohol disorder He is hopeful to go to a dual therapy rehab to target both diseases He has been to [facility] before and tolerated well, but feels if he cannot get his PTSD under control he will ultimately resort back to drinking He admits to drinking 1/2 vodka q2 days, has drank since he was 12 Continue Scheduled gabapentin taper As needed lorazepam for withdrawal symptoms Consult psychiatry #T2DM a1c 7.5 on admission continue insulin per protocol Pt on metformin daily, would recommend increasing to BID at discharge and close PCP follow up #HTN: chronic, stable, continue lisinopril, clonidine (mostly for PTSD) #Depression/Anxiety/PTSD: psych consulted DVT ppx: pt ambulating halls FULL CODE PCP: Aixa Booth Dispo: down grade to medical, await psych input, pt wishing to attend dual therapy rehab, He is medically stable for dual therapy program when accepted Pt was seen and examined in collaboration with Dr. Reeves, please see addendum I spent a total of 45 minutes coordinating, documenting and providing care for this patient excluding time spent in the performance of separately billed services or time spent by another provider/QHP. Admission and Anticipated Discharge Date Admission Date: June 02, 2024 Subjective Pt seen and examined in 233-1. Prior to our visit he was ambulating halls. Denies tremors or withdrawal sx. States these have resolved. Denies f/c/s, chest pain, sob, n/v. Denies SI/HI. States he made, "stupid comments while drinking." Support system is his 3 brothers and dad. He is planning to live with his brother after this. States his PTSD is a trigger to his drinking. Review of Systems Review of Systems: All systems reviewed & are unremarkable except as noted in HPI & below Physical Exam Physical Exam: Gen: WD/WN, M, lying in bed, NAD, A&O x3 HEENT: Normocephalic, atraumatic, conjunctivae moist, sclerae anicteric,+ ear piercing, mucous membranes moist. Lung: Clear to Auscultation bilaterally, no wheezes/rales/rhonchi Heart: Regular rate, regular rhythm, no murmurs, rubs, or gallops Abdomen: Soft, NT, ND +BS x 4 Extremities: No edema Skin: Warm, no rash, negative turgor. Results & Data Results & Data Vital Signs (Past 12 Hours) Vital Signs Temp Pulse Pulse Resp BP BP Pulse Ox 06/03/24 10:48 36.6 C 52 L 19 131/85 97 06/03/24 10:01 06/03/24 09:34 97 H 06/03/24 07:24 36.5 C 44 L 19 150/94 H 98 06/03/24 03:39 36.6 C 58 L 18 130/84 95 06/02/24 23:41 63 06/02/24 23:31 36.6 C 55 L 18 146/92 H 95 O2 Del Method 06/03/24 10:48 Room Air 06/03/24 10:01 Room Air 06/03/24 09:34 06/03/24 07:24 Room Air 06/03/24 03:39 Room Air 06/02/24 23:41 06/02/24 23:31 Room Air Laboratory Results I have independently reviewed and interpreted patient's cbc, bmp, mag, a1c Short CBC 06/03/24 Range/Units 07:25 WBC 3.75 L (4.8-10.8) K/ul Hgb 13.7 L (14.0-18.0) g/dl Hct 39.3 L (42.0-52.0) % Plt Count 142 (130-400) K/uL BMP 06/03/24 07:25 Sodium 136 Potassium 4.1 Chloride 99 Carbon Dioxide 31 BUN 19 Creatinine 1.12 Glucose 147 H Calcium 9.4 Medications Administered Current Inpatient Medications Acetaminophen (Acetaminophen 325 Mg Tab) 650 mg PO Q4H PRN PRN Reason: Pain or Fever Stop: 07/02/24 12:32 Al Hydrox/Mg Hydrox/Simethicone (Aluminum/Magnesium Susp 30 Ml Udc) 15 ml PO Q4H PRN PRN Reason: Dyspepsia Stop: 07/02/24 12:32 Amitriptyline HCl (Amitriptyline Hcl 10 Mg Tab) 10 mg PO QAM [facility] Stop: 07/03/24 08:59 Last Admin: 06/03/24 09:11 Dose: 10 mg Citalopram Hydrobromide (Citalopram 20 Mg Tab) 20 mg PO QAM [facility] Stop: 07/03/24 08:59 Last Admin: 06/03/24 09:10 Dose: 20 mg Dextrose (Dextrose 50% 50 Ml Syringe) 25 - 50 ml IV UD PRN; Protocol PRN Reason: Hypoglycemia Protocol Stop: 07/02/24 12:32 Enoxaparin Sodium (Enoxaparin Inj 40 Mg/0.4 Ml Syr) 40 mg SQ Q24H [facility] Stop: 07/02/24 13:59 Last Admin: 06/02/24 15:43 Dose: 40 mg Folic Acid (Folic Acid 1 Mg Tab) 1 mg PO QAM [facility] Stop: 07/02/24 12:59 Last Admin: 06/03/24 09:10 Dose: 1 mg Gabapentin (Gabapentin 600 Mg Tab) 600 mg PO Q8H [facility] Stop: 06/03/24 23:01 Last Admin: 06/03/24 06:20 Dose: 600 mg Gabapentin (Gabapentin 600 Mg Tab) 600 mg PO Q12H [facility] Stop: 06/04/24 22:01 Gabapentin (Gabapentin 600 Mg Tab) 600 mg PO Q24H [facility] Stop: 06/05/24 22:01 Glucagon (Glucagon For Inj 1 Mg Vial) 1 mg SQ UD PRN; Protocol PRN Reason: Hypoglycemia Protocol Stop: 07/02/24 12:32 Glucose (Glucose 40% Gel 15 Gm Tube) 15 - 30 gm PO UD PRN; Protocol PRN Reason: Hypoglycemia Protocol Stop: 07/02/24 12:32 Glucose (Glucose 10 Tab/Tube) 4 - 8 tab PO UD PRN; Protocol PRN Reason: Hypoglycemia Protocol Stop: 07/02/24 12:32 Magnesium Sulfate/Dextrose (Magnesium Sulfate / D5w) 1 gm in 100 mls @ 50 mls/hr IV ONE ONE Stop: 06/03/24 13:17 Insulin Aspart (Insulin Aspart Per Unit Charge) 0 units SC ACHS [facility] Stop: 07/02/24 12:44 Last Admin: 06/03/24 09:14 Dose: 7 units Lisinopril (Lisinopril 20 Mg Tab) 20 mg PO QAM [facility] Stop: 07/03/24 08:59 Last Admin: 06/03/24 09:11 Dose: 20 mg Lorazepam (Lorazepam 1 Mg Tab) 1 mg PO UD PRN; Protocol PRN Reason: EtOH Withdrawal AWSS Score 6,7 Stop: 07/02/24 12:32 Last Admin: 06/02/24 18:31 Dose: 1 mg Lorazepam (Lorazepam 1 Mg Tab) 3 mg PO ONCE PRN; Protocol PRN Reason: EtOH Withdrawal AWSS Score 10 & above Lorazepam (Lorazepam 2 Mg/1 Ml Vial) 1 mg IV UD PRN; Protocol PRN Reason: EtOH Withdrawal AWSS Score 6,7 Stop: 07/02/24 12:32 Lorazepam (Lorazepam 2 Mg/1 Ml Vial) 2 mg IV UD PRN; Protocol PRN Reason: EtOH Withdrawal AWSS Score 8,9 Stop: 07/02/24 12:32 Lorazepam (Lorazepam 1 Mg Tab) 2 mg PO UD PRN; Protocol PRN Reason: EtOH Withdrawal AWSS Score 8,9 Stop: 07/02/24 12:32 Lorazepam (Lorazepam 2 Mg/1 Ml Vial) 3 mg IV ONCE PRN; Protocol PRN Reason: EtOH Withdrawal AWSS Score 10+ Miscellaneous (Carbohydrates For Hypoglycemia ) 15 - 30 gm PO UD PRN PRN Reason: Hypoglycemia Protocol Stop: 07/02/24 12:32 Pantoprazole Sodium (Pantoprazole 40 Mg Tab) [facility] Stop: 07/03/24 08:59 Last Admin: 06/03/24 09:11 Dose: 40 mg Thiamine HCl (Thiamine Hcl 100 Mg Tab) 100 mg PO QAM [facility] Stop: 07/02/24 12:59 Last Admin: 06/03/24 09:10 Dose: 100 mg Tramadol HCl (Tramadol Hcl 50 Mg Tablet) 50 mg PO Q4H PRN PRN Reason: pain Stop: 07/02/24 12:32
[2024-06-03] MEDS: LORazepam 2 MG/1 ML VIAL IV STA (11:54)
--- NOTE | 2024-06-03 12:04 | Psychiatric Consultation ---
Date of Consultation June 03, 2024 Impression / Recommendations Impression He presents with worsening depressive symptoms, increased alcohol consumption, and PTSD symptoms. Reports longstanding depression with recent exacerbation, including isolation, sadness, tearfulness, low motivation, low energy, and increased flashbacks to past trauma. Diagnostically consistent with alcohol use disorder as well as unspecified depression and anxiety likely a combination of substance-induced as well as MDD, OSMAN and PTSD. Acute risk of self-harm is low given denial of SI and no longer with intoxication. Chronic risk of self-harm and harm to others is slightly increased due to substance use with substance use treatment being the most significant modifiable risk factor to reduce acute and chronic risk. Acknowledges using alcohol to self-medicate and admitted for acute alcohol withdrawal. No current outpatient psychiatric care. Expresses willingness to engage in treatment for both substance use and mental health concerns and interested in dual diagnosis. Overall, I spent a total of 60 minutes with this case including review of chart records, review of labwork, review of EKG QTc, direct evaluation of the patient at bedside, counseling the patient, discussion of the patient with the ospitalist provider, discussion with the psychiatric liason during clinical rounds and documentation in the electronic health record. (1) Depression: (2) PTSD (post-traumatic stress disorder): (3) Alcohol use disorder, moderate, dependence: (4) Anxiety: Plan -referral to dual diagnosis inpatient program once medically stable -Recommend trauma-focused therapy as part of long-term outpatient treatment plan. Provided education on relationships between trauma, depression, and substance use. -Continue Celexa 20mg daily (reportedly on 40mg prior to admission but reasonable to continue lower dose for now given cardiac risks with alcohol withdrawal and suspect high potential for cross-taper during inpatient dual diagnosis treatment to alternative depression medication) Psych History Identifying Data Fernandez Russo is a 53-year-old gentleman who was initially critically ill with alcohol withdrawal symptoms in the setting of chronic alcohol misuse, severe depression and posttraumatic stress disorder. His other PMH include T2DM, HTN, GERD & Barretts Esophagus. Psychiatry consulted for "severe depression". Chief Complaint "I'm ok until I start talking about it, then I start to cry". History of Present Illness Fernandez presents with worsening depressive symptoms and recent increased alcohol consumption in the context of a long-standing history of depression and alcohol use disorder. He reports his depression has been present "forever" and acknowledges that his alcohol use contributes to his depression, stating that he drinks to "mask the depression" and self-medicate. Fernandez reports spending about a week in bed prior to this admission, isolating himself and wanting to be left alone. He identifies thinking about his past experiences as a recent stressor contributing to his increased alcohol use and worsening mood. He endorses depressive symptoms including isolation, feelings of hopelessness, sadness, and frequent crying. He reports that he tends to "barricade" himself and has difficulty engaging in activities. However, he notes that he can still feel some happiness at times. He also reports decreased appetite. 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 Fernandez also cites a significant trauma history of having to clean up after his best friend's son's by suicide. This experience, along with his work history, contributes to his ongoing mental health struggles as he often has flashbacks especially when he is depressed. He reports a history of anxiety in addition to his depression, noting that the two conditions "kind of go together." He denies any thoughts of SI. Discussed he had made possible statements of this on arrival to the hospital while intoxicated. He doesn't recall this and feels it may have been out context. Recently, Fernandez's alcohol consumption increased to 1/5th of vodka every 2 days prior to seeking help with complicated withdrawal. This escalation in drinking led to his family encouraging him to seek hospital care. Fernandez's psychiatric history includes no current outpatient providers (though was going to be starting outpatient therapy soon), no prior inpatient hospitalizations and no prior suicide attempts. Previous trial of doxepin and clonidine. He attended residential substance use treatment a year ago at [facility] about a year ago, which lasted for a shortened period due to insurance issues from job loss while seeking treatment. He has also undergone detox near [place] for brief stays of about 5 days. Naltrexone was ineffective for cravings in the past. His current medications are prescribed by his primary care physician, though he is unsure about the specifics of his regimen. Currently he is being prescribed Celexa (citalopram) and Elavil 10mg daily. Further history per psych liason initial note on 06/02/2024: "Patient seen for in itial consult, alert and oriented x 4 - tearful during interaction, denies SI/HI, denies hallucinations/delusions, patient with significant history for alcohol abuse and withdrawal - he has been to rehab twice most recently at [facility] - he states "once you get back out in the real world something happens and it's just too easy to grab a beer and before you know it you're back in it", patient does endorse severe depression - he states he has PTSD from having to clean up the "brain matter" with a shop vac after his friend's son committed suicide last year and he didn't have the money to hire a professional cleaning service - he also states he lost his job when he went to rehab last - and then his living situation has gone sour and he will soon be moving out and into an apartment with his brother, patient does state he has good family support and feels hopeful, he has trialed naltrexone in the past and didn't find it helpful with his cravings and also feels his current psychiatric medications are not helping, he denies other drug use, he is interested in rehab once medically stable, thankful for visit, psychiatrist to round and make recommendations." Past Psychiatric History Current Psychiatric Diagnosis: Depression, Anxiety, Alcohol addiction History of Previous Suicide Attempt: No Allergies Allergy/AdvReac Type Severity Reaction Status Date / Time bee venom protein (honey bee) Allergy Severe Anaphylaxis Verified 08/09/21 09:34 Home Medications Medication Instructions Recorded Confirmed Type amitriptyline 10 mg tablet 10 mg PO QAM 12/01/18 06/02/24 History citalopram 20 mg tablet 20 mg PO QAM 12/01/18 06/02/24 History cyclobenzaprine 10 mg tablet 10 mg PO TID PRN Spasms 12/01/18 06/02/24 History epinephrine 0.3 mg/0.3 mL 0.3 mg IM Q3H PRN Allergic Reaction 12/01/18 06/02/24 History injection, auto-injector lisinopril 20 mg tablet 20 mg PO QAM 12/01/18 06/02/24 History meloxicam 15 mg tablet 15 mg PO QAM 12/01/18 06/02/24 History metformin 500 mg tablet 500 mg PO DAILYBD 12/01/18 06/02/24 History omeprazole 40 mg capsule,delayed 40 mg PO QAM 12/01/18 06/02/24 History release tramadol 50 mg tablet (Ultram) 50 mg PO Q4H PRN pain #15 tabs 08/17/20 06/02/24 Rx albuterol sulfate 90 mcg/actuation 90 mcg inhalation Q6 PRN Shortness 06/02/24 06/02/24 History aerosol inhaler Of Breath atorvastatin 10 mg tablet 10 mg PO QAM 06/02/24 06/02/24 History clonidine HCl 0.1 mg tablet 0.1 mg PO QAM 06/02/24 06/02/24 History folic acid 1 mg tablet 1 mg PO QAM 06/02/24 06/02/24 History Patient History Medical History (Updated 06/03/24 @ 12:39 by Darya Reynoso MD) Alcohol dependence, daily use 3-12 drinks daily Barretts esophagus Diabetes mellitus, type 2 NIDDM Anxiety Hypertension Depression Surgical History History of carpal tunnel surgery of right wrist History of cholecystectomy History of hernia surgery x2 in childhood History of colonoscopy History of esophagogastroduodenoscopy (EGD) History of tooth extraction partial upper denture Family History Other No family history of adverse response to anesthesia No pertinent family history in first degree relatives Social History Smoking Status: Never smoker Second Hand Exposure: No; Do You Dip or Chew Tobacco: No; Hx Alcohol Use: Yes Alcohol type: beer and hard liquor Hx Substance Use: Yes (smokes marijuana (advised on policy)) Preferred Language: Belarusian Communication Ability: Effective Muff Winder Required: No Beliefs That Will Affect Care: None marital status: Single Current Living Situation: Alone Current Living Situation Comment: Roomate, considers moving in with Brother current occupational status: employed Feels Safe at Home: Yes Safety Concerns: Feels Safe At This Time Gender Identity: Male Assistive Devices: None Physical Exam Psychiatric: Orientation: alert and oriented x 3 Apperance: appropriately dressed and appropriately groomed Eye Contact: good eye contact Motor Behavior: no abnormal motor movements Speech: normal rate/rhythm/volume of speech Affect: + depressed affect and + tearful affect Mood: + depressed mood and + anxious mood Thought Process: goal directed thought process Thought Content: reality based without delusions Suicidal Thoughts: denies suicidal thoughts, denies suicidal plan and denies suicidal intent Homicidal Thoughts: denies homicidal thoughts Hallucinations: no auditory hallucinations and no visual hallucinations Cognition: recent memory grossly intact, remote memory grossly intact, attention grossly intact and language grossly intact Estimated Intelligence: consistent with education level Insight: + fair insight Judgment: + fair judgement Vital Signs (Past 24 Hours): Last Vital Signs Temp 36.6 C 06/03/24 10:48 Pulse 52 L 06/03/24 10:48 Resp 19 06/03/24 10:48 BP 131/85 06/03/24 10:48 Pulse Ox 97 06/03/24 10:48 O2 Del Method Room Air 06/03/24 10:48 O2 Flow Rate 0 06/02/24 12:33 Results & Data (PSY) Medications Administered Amitriptyline HCl (Amitriptyline Hcl 10 Mg Tab) 10 mg PO QAM [facility] Stop: 07/03/24 08:59 Last Admin: 06/03/24 09:11 Dose: 10 mg Documented By: KIMBERLY Citalopram Hydrobromide (Citalopram 20 Mg Tab) 20 mg PO QAM [facility] Stop: 07/03/24 08:59 Last Admin: 06/03/24 09:10 Dose: 20 mg Documented By: KIMBERLY Enoxaparin Sodium (Enoxaparin Inj 40 Mg/0.4 Ml Syr) 40 mg SQ Q24H [facility] Stop: 07/02/24 13:59 Last Admin: 06/02/24 15:43 Dose: 40 mg Documented By: CHUCHO Folic Acid (Folic Acid 1 Mg Tab) 1 mg PO QAM [facility] Stop: 07/02/24 12:59 Last Admin: 06/03/24 09:10 Dose: 1 mg Documented By: Admin: 06/02/24 15:43 Dose: 1 mg Documented By: CHUCHO Gabapentin (Gabapentin 600 Mg Tab) 600 mg PO Q8H [facility] Stop: 06/03/24 23:01 Last Admin: 06/03/24 06:20 Dose: 600 mg Documented By: MARCIANO Insulin Aspart (Insulin Aspart Per Unit Charge) 0 units SC ACHS [facility] Stop: 07/02/24 12:44 Last Admin: 06/03/24 11:54 Dose: 2 units Documented By: KIMBERLY Co-signed By: ERASMO Admin: 06/03/24 09:14 Dose: 7 units Documented By: KIMBERLY Co-signed By: ERASMO Admin: 06/02/24 20:51 Dose: Not Given Documented By: Admin: 06/02/24 18:27 Dose: 5 units Documented By: CHUCHO Co-signed By: SANDRA Admin: 06/02/24 15:55 Dose: Not Given Documented By: CHUCHO [place]inop[place] (L[facility]op[place] 20 Mg Tab) [facility] [place] [facility] [place]: 07/03/24 08:59 Last Admin: 06/03/24 09:11 Dose: 20 mg Documented By: KIMBERLY Lorazepam (Lorazepam 1 Mg Tab) 1 mg PO UD PRN; Protocol PRN Reason: EtOH Withdrawal AWSS Score 6,7 Stop: 07/02/24 12:32 Last Admin: 06/02/24 18:31 Dose: 1 mg Documented By: Admin: 06/02/24 16:01 Dose: 1 mg Documented By: CHUCHO Pantoprazole Sodium (Pantoprazole 40 Mg Tab) [facility] [place]: 07/03/24 08:59 Last Admin: 06/03/24 09:11 Dose: 40 mg Documented By: KIMBERLY Thiamine HCl (Thiamine Hcl 100 Mg Tab) 100 [facility] [place]: 07/02/24 12:59 Last Admin: 06/03/24 09:10 Dose: 100 mg Documented By: Admin: 06/02/24 15:43 Dose: 100 mg Documented By: CHUCHO Coding Level of Care Code 62121 IN/OBS CONSULT LVL 4,60M Diagnoses Depression F32.A PTSD (post-traumatic stress disorder) F43.10 Alcohol use disorder, moderate, dependence F10.20 Anxiety F41.9
[2024-06-03] MEDS: MAGNESIUM SULFATE / D5W 1 GM/100 ML BAG IV ONE (12:18)
[2024-06-04] MEDS: GABAPENTIN 600 MG TAB PO SCH (08:23)
--- NOTE | 2024-06-04 15:52 | Hospitalist Progress Note ---
<Statement entered by Yang Reeves, - 06/04/24 17:09> I have seen and examined the patient and have discussed the case with the advance practice provider. I have reviewed the advanced practitioner's documentation, and I agree with, and take responsibility for that plan of care. Patient up and ambulating the halls. No signs of withdrawal. Feeling stronger. Still very interested in inpatient mental health and alcohol rehab Continue to pursue rehab options Discussed plan of care as outlined below I spent a total of 12 minutes coordinating, documenting, and providing care for this patient excluding time spent by another provider/QHP. Date of Service June 04, 2024 Assessment & Plan (1) Alcohol intoxication: (2) Alcohol dependence, daily use: (3) PTSD (post-traumatic stress disorder): (4) Alcohol withdrawal syndrome with perceptual disturbance: Plan: Fernandez Russo is a 53y/o M with PMHx significant who was initially critically ill with alcohol withdrawal symptoms in the setting of chronic alcohol misuse, penny re depression and PTSD. Additional PMHx includes T2DM, HTN, GERD & Hernandez's esophagus. No longer exhibiting signs/symptoms of withdrawal. Feeling much improved this morning. Denies SI/HI. Admits to significant depression and PTSD which is a trigger for his alcohol use disorder. Hopeful to go to a dual diagnosis rehab program to target both disease. Has been to [facility] before and tolerated well. Feels he will ultimately resort back to drinking if he cannot get his PTSD under control. Appreciate psychiatry input. Admits to drinking 1/2 vodka Q2 days. Has drank since age 12. Continue scheduled gabapentin taper. PRN Ativan for withdrawal symptoms. Other Chronic Medical Conditions: HTN - Chronic, stable. Continue lisinopril and clonidine (mostly used for PTSD). Depression/Anxiety/PTSD - Continue Celexa and Elavil. DMII - Hgb A1c 7.5% on admission, continue SSI regimen per protocol. Would recommend increasing metformin to BID dosing at discharge. DVT Prophylaxis: SCDs/TEDs, encourage ambulation. Code Status: FULL CODE PCP: Edgar Cardona MD Disposition: Medically stable for dual therapy program when accepted. Downgrade to med/surg when able. Patient seen in collaboration with Dr. Reeves. Please see addendum. I spent a total of 35 minutes coordinating, documenting, and providing care for this patient excluding time spent in the performance of separately billed services or time spent by another provider/QHP. This included personally reviewing all current laboratories and imaging studies, medical reconciliation, outpatient chart review and discussion with specialists. This chart was completed in part utilizing Speech Voice Recognition Software. Grammatical errors, random word insertions, pronoun errors, and incomplete sentences are an occasional consequence of this system due to software limitations, ambient noise, and hardware issues. Any formal questions or concerns about the content, text, or information contained within the body of this dictation should be directly addressed to the provider for clarification. Admission and Anticipated Discharge Date Admission Date: June 02, 2024 Subjective Patient seen and examined in room S233-1. NAEO. Endorses feeling well. Has been ambulating around the hallways. Denies any tremors or additional withdrawal symptoms. Denies any SI or HI. Has 2 sons that live in [place], [place]. Planning on living with his brother following rehab. Review of Systems Review of Systems: At least ten systems reviewed and negative, except as noted in the subjective section. Physical Exam Physical Exam: General: Middle-aged, M. NAD. Sitting up on the side of his bed. Pleasant. A&Ox4. Engaged in conversation. HEENT: Normocephalic, atraumatic. Conjunctivae normal. External ear and nose normal, oropharynx normal. Respiratory: Normal respiratory effort, lungs clear to auscultation bilaterally. No accessory muscle use. Cardiovascular: Regular rate and rhythm, normal peripheral pulses. No BLE edema. Abdomen/GI: Normal bowel sounds, soft, nondistended, nontender to palpation in all quadrants. Extremities/Musculoskeletal: No cyanosis or clubbing, extremities motor strength intact, moves all extremities. Results & Data Results & Data Vital Signs (Past 12 Hours) Vital Signs Temp Pulse Resp BP BP Pulse Ox O2 Del Method 06/04/24 15:40 36.7 C 81 18 126/72 95 Room Air 06/04/24 10:58 36.7 C 94 H 18 126/87 98 Room Air 06/04/24 08:06 36.7 C 96 H 18 164/98 H 97 Room Air (1) Alcohol intoxication Complication of substance-induced condition: uncomplicated Qualified Code(s): F10.920 - Alcohol use, unspecified with intoxication, uncomplicated
--- NOTE | 2024-06-04 18:32 | Discharge Summary ---
Discharge Summary Date of Service June 04, 2024 Principal Dx & Hospital Course #1 = Principal Diagnosis (1) Alcohol intoxication: (2) Alcohol dependence, daily use: (3) PTSD (post-traumatic stress disorder): (4) Alcohol withdrawal syndrome with perceptual disturbance: Plan Patient 53-year-old gentleman with significant history of depression, anxiety and posttraumatic stress disorder as well as alcohol misuse disorder. Presented to the emergency room with his family intoxicated on alcohol and having some questionable suicidal ideation. Initial plan was for him to go to a rehab facility after he was through his intoxication however he started to have withdrawal symptoms. Patient was referred to our service. He admitted to the hospital for alcohol withdrawal. He was treated with gabapentin taper. Once he was no longer intoxicated the patient had no suicidal ideation. Psychiatry consultation was obtained. They recommended dual diagnosis inpatient rehab center if the patient was agreeable. The patient did well with any withdrawal symptoms was not requiring any as needed benzodiazepines. He is up and ambulating the halls and vital signs are stable. Patient was contacted by his outpatient chip separator. E Mail System Administrator told him that they would help coordinate a one-to-one personal psychiatry/psychologist evaluation, set him up with appointments for ongoing outpatient mental health and alcohol dependence care. Will with this information the patient no longer wanted to pursue inpatient rehab. Is requesting to be discharged from the hospital. From the medical standpoint the patient alcohol withdrawal had resolved. At the time of discharge his brother and father were at the bedside and were going to be a support system for him. Patient reported he had been on naltrexone in the past and it was helpful however he had trouble getting the medication. He was willing to give it another try. Patient will be discharged home with naltrexone prescription. He will continue to follow with his outpatient telephonic nurse case manager and pursue mental health and alcohol dependence care as an outpatient. Notes For Next Care Provider Medication Changes From Visit Naltrexone added for alcohol dependence treatment Tramadol discontinued Clonidine discontinued Thiamine added to vitamin therapy Admission HPI Per Admitting Provider Patient is a 53-year-old gentleman with known history of alcohol misuse along with anxiety, severe depression and posttraumatic stress disorder. Brought to the emergency room by family because they are extremely concerned about his mental health and possibly some concerns that he may have some suicidal ideation. When he first presented to the emergency room he was intoxicated on alcohol. His initial evaluation with an plan was to be cleared for sobriety and then hopefully be placed at a dual diagnosis rehab facility where he can address his mental health issues as well as his alcohol addiction. However, before the patient could be fully cleared for sobriety patient started have some significant withdrawal symptoms. He received Librium and Ativan here in the ED. This would disqualify him for direct admission to rehab facility and was referred to our service for a medical admission. Time my evaluation the patient is fairly calm. Has just received some lorazepam. He absolutely denies any suicidal ideation at this time. He states that is really his anxiety, severe depression and posttraumatic stress disorder that he struggles with. Apparently he had some significant emotional and psychological trauma in the past that is difficult for him to deal with. He is dealt with this mostly by drinking alcohol. He states he consumes at least 0.5 L of vodka daily. He will also occasionally have some beers. He denies any fever or chills, no cough or cold symptoms, no chest pain, no shortness of breath. He states has been eating and drinking well. No new problems with the bowels or bladder. No new swelling in his hands arms legs or feet and no significant joint pains. He does admit to occasional marijuana use but no other illicit drug use. He is interested in getting rehab and addressing his alcohol addiction as well as his mental health issues. Admission Exam Per Admitting Provider See H&P Discharge Exam Constitutional: Alert nontoxic HEENT: Mucous membranes moist. Lungs: Clear to auscultation, decreased, no wheezes rales or rhonchi CV: S1-S2, regular Abdomen: Soft, nontender, nondistended Extremities: No significant edema Neuro: No focal deficits Psych: Cooperative, normal mood Updated Medication List Medication Instructions Recorded Confirmed Type amitriptyline 10 mg tablet 10 mg PO QAM 12/01/18 06/02/24 History cyclobenzaprine 10 mg tablet 10 mg PO TID PRN Spasms 12/01/18 06/02/24 History epinephrine 0.3 mg/0.3 mL 0.3 mg IM Q3H PRN Allergic Reaction 12/01/18 06/02/24 History injection, auto-injector lisinopril 20 mg tablet 20 mg PO QAM 12/01/18 06/02/24 History meloxicam 15 mg tablet 15 mg PO QAM 12/01/18 06/02/24 History metformin 500 mg tablet 500 mg PO DAILYBD 12/01/18 06/02/24 History omeprazole 40 mg capsule,delayed 40 mg PO QAM 12/01/18 06/02/24 History release albuterol sulfate 90 mcg/actuation 90 mcg inhalation Q6 PRN Shortness 06/02/24 06/02/24 History aerosol inhaler Of Breath atorvastatin 10 mg tablet 10 mg PO QAM 06/02/24 06/02/24 History clonidine HCl 0.1 mg tablet 0.1 mg PO QAM 06/02/24 06/02/24 History folic acid 1 mg tablet 1 mg PO QAM 06/02/24 06/02/24 History citalopram 20 mg tablet 20 mg PO QAM #30 tabs 06/04/24 Rx naltrexone 50 mg tablet 50 mg PO DAILY #30 tabs 06/04/24 Rx thiamine HCl (vitamin B1) 100 mg 100 mg PO QAM #30 tabs 06/04/24 Rx tablet Hospital Stay Data Consultations 06/02/24 10:36 ED Decision to Admit Stat 06/02/24 12:33 Consult Psychiatry Routine Diagnostic Imagining Performed Reviewed imaging, laboratory and diagnostic studies. Pertinent findings as below. WBCs 3.7 Hemoglobin 13.7 Platelets 142 Electrolytes within normal range Creatinine 1.12 Pending Results Patient Have Any Pending Studies at Discharge: No Discharge Instructions Given to Patient (Per Discharging Provider) Strongly recommend you stop all alcohol and beer Strongly recommend you follow-up with your housing case manager to pursue intensive outpatient treatment for your alcohol addiction and continue to pursue care for your mental health issues Total Time Total Time Spent Total Time Spent (In Minutes): 36
[2024-06-05] MEDS ORDERED: GABAPENTIN 600 MG TAB PO SCH (22:00)
== END 2024-06-04 18:34 | disposition home or self-care (01) | DRG 897 ==
LOC: ED 22:56 → EDINP 06-02 10:59 → 2S 06-02 13:11
DX: F32.2 Major depressive disorder, single episode, severe without psychotic features; F41.9 Anxiety disorder, unspecified; F10.221 Alcohol dependence with intoxication delirium; Z79.84 Long term (current) use of oral hypoglycemic drugs; F10.232 Alcohol dependence with withdrawal with perceptual disturbance; F43.10 Post-traumatic stress disorder, unspecified; I10 Essential (primary) hypertension; E11.9 Type 2 diabetes mellitus without complications